=== PATIENT | male | born 1965 | race Caucasian/White ===

== ENCOUNTER 2020-01-06 08:13 | Outpatient (CLI) | payer BC, SELFPAY ==
--- NOTE | 2020-01-06 14:51 | WPDSIXMINUTE ---
Six Minute Walk Six Minute Walk: DATE OF SERVICE: 01/06/2020 REQUESTING: Dr Monaco REASON FOR TESTING: Non-productive cough; history of aortic dissection SIX MINUTE WALK This test was conducted per ATS guidelines, on room air. The initial saturation was 94%, pulse was 91. The fingertip probe lost a signal several times during the walk, the longest period without a signal being 44 seconds, and the total 2.5 minutes out of 8.5 minutes of recording time. The saturation varied between 94% to 97%. Pulse ranged from 62 to 95. Distance walked was 1100 feet / 335 meters. He did not stop to rest. He had significant dyspnea at the end of 6 minutes of walking, which improved at 2 minutes during recovery. IMPRESSION: No hypoxemia noted on the study. No indication for supplemental oxygen with exertion. Distance walked us adequate for his age. The lack of signal at various points while he was walking does not appear to have impacted reliability of results. Sometimes patient perfusion can impact ability for the oximeter to display the value. It is not clear why his signal was lost.
--- NOTE | 2020-01-06 15:06 | WPDPFTINT ---
PFT Interpretation PFT Interpretation: DOS: 01/06/2020 REQUESTING: Dr. Monaco REASON FOR TESTING: Shortness of breath, nonproductive cough. Nonsmoker. PULMONARY FUNCTION TESTS This test is reliable and reproducible. Spirometry: Moderate decrease in FEV1, 66% predicted, 2.34 L. FVC is mildly reduced 79% predicted. FEV1% is reduced consistent with airflow obstruction. The BGG09-61% is extremely low, 30%, with 37% increase with bronchodilator. Lung volumes: Total lung capacity is 112%, normal. Severe increase in residual volume 178% predicted consistent with air trapping. Increased airway resistance 253%. Diffusion: DLCO is 79%, mildly reduced. Flow volume loop: Mild scooping of the expiratory limb. IMPRESSION: Moderate obstructive ventilatory impairment, severe in the small airways with a significant response to bronchodilator in the small airways. Severe air trapping, increased airway resistance, mild decrease in diffusion. The spirometry and lung volumes suggest asthma. Clinical correlation is advised. Kristen Monaco MD
== END 2020-01-06 08:14 | disposition home or self-care (01) ==
PROVIDERS: PCP Family Medicine; Visit Provider Internal Medicine Critical Care Medicine
DX: R06.02 Shortness of breath (principal); R94.2 Abnormal results of pulmonary function studies
CPT/HCPCS: 94060; 94618; 94726; 94729

== ENCOUNTER 2020-03-12 19:24 | Emergency (ER) | payer BC, SELFPAY ==
--- NOTE | ~2020-03-12 | XR_ITS ---
EXAMINATION: XR foot RT min 3V DATE: 03/12/2020 21:32 INDICATION: Right foot pain TECHNIQUE: Dorsoplantar, lateral, and 2 oblique views of the right foot were obtained. COMPARISON: None. FINDINGS: There is no fracture, dislocation, or subluxation. Mild osteoarthritis is noted at the firs t metatarsophalangeal joint. The soft tissues are unremarkable. IMPRESSION: 1. No acute osseous abnormality. Reviewed, dictated and finalized at location A.
--- NOTE | ~2020-03-12 | XR_ITS ---
EXAMINATION: XR shoulder LT min 2V INDICATION: Left shoulder pain TECHNIQUE: Four views of the left shoulder are submitted. COMPARISON: 12/01/2018 FINDINGS: Normal alignment. No fracture. There is mild osteoarthritis at the glenohumeral and acromio clavicular joints. Changes of prior cardiac surgery are noted. Soft tissues are unremarkable. IMPRESSION: 1. No acute osseous abnormality. Reviewed, dictated and finalized at location A.
[2020-03-12 19:30] VITALS: BP 152/79; PULSE 85; RESP 18; TEMP 37.2; O2SAT 98
[2020-03-12 21:52] VITALS: BP 154/86; PULSE 94; RESP 18; TEMP 37.2; O2SAT 95
--- NOTE | 2020-03-12 22:23 | ED.FALL ---
HPI - Fall General Chief Complaint: Fall <Rach Adam PA-C - Last Filed: 03/12/20 22:29> Stated Complaint: left shoulder pain, right foot pain <JAI Alvarez Last Filed: 03/12/20 22:29> Time Seen by Provider: 03/12/20 22:06 <Rach Adam PA-C - Last Filed: 03/12/20 22:29> Source: patient <JAI Alvarez Last Filed: 03/12/20 22:29> Mode of arrival: ambulatory <JAI Alvarez Last Filed: 03/12/20 22:29> Limitations: no limitations <JAI Alvarez Last Filed: 03/12/20 22:29> History of Present Illness HPI Narrative: This is a 54-year-old male that presents the emergency department for left shoulder pain after an injury today. Reports he fell off the back of his trailer. Reports the fall was about 5 feet. Reports since he has had pain in the left shoulder and right foot. Worse with movement and relieved with rest. Denies hitting his head, loss of consciousness, other injuries, or numbness. <Rach Adam PA-C - Last Filed: 03/12/20 22:29> Related Data Home Medications: Home Medications Medication Instructions Recorded Confirmed calcium carb-vit [id number]-[id number] 1 tablet PO DAILY 08/19/19 02/09/20 333 mg-200 unit-133 mg-5 mg tablet calcium carbonate 600 mg calcium 600 mg PO DAILY 08/19/19 02/09/20 (1,500 mg) tablet chlorthalidone 25 mg tablet 25 mg PO DAILY 08/19/19 02/09/20 cyanocobalamin (vitamin B-12) 1,000 mcg PO DAILY 08/19/19 02/09/20 1,000 mcg capsule diltiazem HCl 240 mg 240 mg PO DAILY 08/19/19 02/09/20 capsule,extended release 24 hr, controlled labetalol 300 mg tablet 300 mg PO Q12H 08/19/19 02/09/20 lisinopril 40 mg tablet 40 mg PO DAILY 08/19/19 02/09/20 magnesium 250 mg tablet 500 mg PO DAILY tablet 08/19/19 02/09/20 melatonin 5 mg capsule mg PO 08/19/19 02/09/20 pyridoxine (vitamin B6) 200 mg 200 mg PO DAILY 08/19/19 02/09/20 tablet warfarin 5 mg tablet 5 mg PO DAILY 08/19/19 02/09/20 celecoxib 200 mg capsule 200 mg PO DAILY PRN 01/04/20 02/09/20 cholecalciferol (vitamin D3) 50 2,000 unit PO DAILY 01/04/20 02/09/20 mcg (2,000 unit) tablet <Rach Adam PA-C - Last Filed: 03/12/20 22:29> Allergies/Adverse Reactions: Allergies Allergy/AdvReac Type Severity Reaction Status Date / Time No Known Allergies Allergy Unverified 12/01/18 14:19 <Rach Adam PA-C - Last Filed: 03/12/20 22:29> Review of Systems Review of Systems: Narrative: CONSTITUTIONAL: Denies fever MUSCULOSKELETAL: Reports joint pain and myalgia. Denies back pain NEUROLOGIC: Denies numbness, or weakness. <Rach Adam PA-C - Last Filed: 03/12/20 22:29> All systems reviewed & are unremarkable except as noted in HPI and below <Rach Adam PA-C - Last Filed: 03/12/20 22:29> [facility] Past Medical History Medical History: Medical History (Updated 03/13/20 @ 00:00 by Nayely Asencio) Abdominal aortic aneurysm Anxiety and depression BMI 29.0-29.9,adult Chronic anticoagulation Chronic kidney disease, stage 2, mildly decreased GFR COPD (chronic obstructive pulmonary disease) COPD (chronic obstructive pulmonary disease) Descending aortic aneurysm Hyperlipidemia LDL goal <100 Hypertension Osteoarthritis involving multiple joints on both sides of body Rhinitis Tobacco dependence due to chewing tobacco Vasculopathy Vitamin B12 deficiency <Rach Adam PA-C - Last Filed: 03/12/20 22:29> Surgical History Surgical History: Surgical History History of thoracic aortic aneurysm repair <Rach Adam PA-C - Last Filed: 03/12/20 22:29> Social History Social History: Social History Alcohol intake: current <Rach Adam PA-C - Last Filed: 03/12/20 22:29> Exam Narrative: Exam Narrative: GENERAL: Well-appearing, well-nourished, and in no acute distress. HE
== END 2020-03-12 22:49 | disposition home or self-care (01) ==
PROVIDERS: Emergency Provider Emergency Medicine; PCP Family Medicine
DX: M25.512 Pain in left shoulder (principal); M79.671 Pain in right foot; Z79.01 Long term (current) use of anticoagulants; F41.9 Anxiety disorder, unspecified; F32.9 Major depressive disorder, single episode, unspecified; J44.9 Chronic obstructive pulmonary disease, unspecified; E78.5 Hyperlipidemia, unspecified; M19.90 Unspecified osteoarthritis, unspecified site; E53.8 Deficiency of other specified B group vitamins; I12.9 Hypertensive chronic kidney disease with stage 1 through stage 4 chronic kidney disease, or unspecified chronic kidney disease; N18.2 Chronic kidney disease, stage 2 (mild); F17.220 Nicotine dependence, chewing tobacco, uncomplicated; W17.89XA Other fall from one level to another, initial encounter
CPT/HCPCS: 73030; 73630; 99284

== ENCOUNTER 2020-04-12 13:03 | Inpatient (IN) | payer BC, SELFPAY ==
--- NOTE | ~2020-04-12 | XR_ITS ---
EXAMINATION: XR elbow RT min 3V EXAM DATE: 04/12/2020 13:45 INDICATION: Initial encounter following injury, with pain of the elbow. TECHNIQUE: Right elbow frontal, lateral with flexion, and oblique projections obtained and reviewed. There is no prior study for comparison. FINDINGS: Right elbow anterior humeral line intact. There are no acute fractures or dislocations astrid ntified. There is no subcutaneous gas. There is soft tissue swelling over the elbow posteriorly. T here are no radiopaque foreign bodies. IMPRESSION: 1. Right elbow exam without acute osseous findings. 2. Soft tissue swelling. Reviewed, dictated and finalized at location A.
[2020-04-12 13:07] VITALS: BP 120/70; PULSE 78; RESP 16; TEMP 36.1; O2SAT 97
--- NOTE | 2020-04-12 13:22 | ED.GENADULT ---
HPI - General Adult General Chief complaint: Extremity Injury, Upper Stated complaint: right elbow swelling, post fall 2 weeks ago Time Seen by Provider: 04/12/20 13:20 Source: patient Mode of arrival: ambulatory Limitations: no limitations History of Present Illness HPI narrative: Pt is a 54 yo male with a history of aortic dissection, anticoagulated on warfarn, who presents for evaluation of right elbow edema, redness. Pt has been on outpatient antibiotics for two days without improvement. Edema, redness is worsening. Patient reports increased pain with movement yesterday, actually improved today. No fever, chills, nausea or vomiting. Patient states the injury initially happened ten days ago when he was walking and tripped, landing on his right elbow, did obtain a very small scrape to the area and since that time has had about 3 days of worsening swelling, pain and redness. Patient with history of skin infection in the past. Patient has been compliant with his anticoagulation. Pt denying any chest pain, dyspnea, other lesions. He has seen his PCP and on Clindamycin. Dr. Tam's office referred him to the ED. Related Data Home Medications Medication Instructions Recorded Confirmed calcium carb-vit K4-dhyuejvre-ohso 1 tablet PO DAILY 08/19/19 04/10/20 333 mg-200 unit-133 mg-5 mg tablet calcium carbonate 600 mg calcium 600 mg PO DAILY 08/19/19 04/10/20 (1,500 mg) tablet chlorthalidone 25 mg tablet 25 mg PO DAILY 08/19/19 04/10/20 cyanocobalamin (vitamin B-12) 1,000 mcg PO DAILY 08/19/19 04/10/20 1,000 mcg capsule diltiazem HCl 240 mg 240 mg PO DAILY 08/19/19 04/10/20 capsule,extended release 24 hr, controlled labetalol 300 mg tablet 300 mg PO Q12H 08/19/19 04/10/20 lisinopril 40 mg tablet 40 mg PO DAILY 08/19/19 04/10/20 magnesium 250 mg tablet 500 mg PO DAILY tablet 08/19/19 04/10/20 melatonin 5 mg capsule mg PO 08/19/19 04/10/20 pyridoxine (vitamin B6) 200 mg 200 mg PO DAILY 08/19/19 04/10/20 tablet warfarin 5 mg tablet 5 mg PO DAILY 08/19/19 04/10/20 celecoxib 200 mg capsule 200 mg PO DAILY PRN 01/04/20 04/10/20 cholecalciferol (vitamin D3) 50 2,000 unit PO DAILY 01/04/20 04/10/20 mcg (2,000 unit) tablet Allergies Allergy/AdvReac Type Severity Reaction Status Date / Time No Known Allergies Allergy Verified 04/12/20 13:21 Review of Systems Review of Systems: Narrative: CONSTITUTIONAL: Denies fever CARDIOVASCULAR: Denies chest pain RESPIRATORY: Denies cough or dyspnea. GASTROINTESTINAL: Denies abdominal pain SKIN:Reports edema, erythema, pain of right elbow MUSCULOSKELETAL: Denies back pain NEUROLOGIC: Denies headache [facility], [facility] Past Medical History Medical History Abdominal aortic aneurysm Anxiety and depression Arthritis of left glenohumeral joint BMI 28.0-28.9,adult BMI 29.0-29.9,adult Cellulitis of right elbow Chronic anticoagulation Chronic kidney disease, stage 2, mildly decreased GFR COPD (chronic obstructive pulmonary disease) COPD (chronic obstructive pulmonary disease) Descending aortic aneurysm Hyperlipidemia LDL goal <100 Hypertension Olecranon bursitis of right elbow Osteoarthritis involving multiple joints on both sides of body Rhinitis Tobacco dependence due to chewing tobacco Vasculopathy Vitamin B12 deficiency Surgical History Surgical History History of heart valve replacement with mechanical valve History of thoracic aortic aneurysm repair 2010 Victor M Lorenzana Social History Social History Smoking packs per day: 1 Smoking cigarettes per day: 20.0 Years smoked: 29 Smoking pack-years: 29.00 Smoking status: Current every day smoker Tobacco type: cigarettes Second hand tobacco smoke exposure: Yes Alcohol intake: current Drinks per week: 7 Substance use: never Additional occupation/education
[2020-04-12 14:07] LABS: Basophils Percent Auto 0.2 % (0.2-1.2); Eosinophils Absolute Auto 0.4 K/mm3 (0-0.3); Eosinophils Percent Auto 3.3 % (0-4.4); Hematocrit 37.8 % (42.0-52.0); Hemoglobin 12.8 g/dL (14.0-18.0); Immature Granulocyte Absolute 0.04 K/mm3 (0.00-0.031); Immature Granulocyte Percent A 0.4 % (0-0.5); Lymphocytes Absolute Auto 1.25 K/mm3 (0.9-3.2); Mean Corpuscular HGB Conc 33.9 g/dl (32-36); Mean Corpuscular Hemoglobin 31.5 pg (26-34); Mean Corpuscular Volume 93.1 fl (80-100); Mean Platelet Volume 10.8 fl (7.4-10.4); Monocytes Absolute Auto 0.9 K/mm3 (0.1-0.6); Monocytes Percent Auto 7.6 % (2.6-8.5); Neutrophils Absolute Auto 8.8 K/mm3 (1.3-6.7); Neutrophils Percent Auto 77.5 % (45.5-73.1); Platelet Count Result 233 k/mm3 (150-375); Red Blood Count 4.06 M/mm3 (4.6-6.20); Red Cell Distribution Width 12.9 % (11.5-14.5); White Blood Count 11.3 K/mm3 (4.5-10.0)
[2020-04-12 14:16] LABS: INR 2.1; Prothrombin Time 23.2 Seconds (11.1-14.7)
[2020-04-12 14:17] LABS: Partial Thromboplastin Time 40.5 SECONDS (22.3-36.8)
[2020-04-12 14:36] LABS: Anion Gap 12.4 mmol/L (7-16); Blood Urea Nitrogen 32 mg/dL (9-20); Calcium 9.1 mg/dL (8.4-10.2); Carbon Dioxide 27 mmol/L (22-30); Chloride 102 mmol/L (98-107); Estimated CRCL calculation 63 ml/min; Estimated Glomerular Filt Rate > 60; Glucose 112 mg/dL (75-110); Potassium 3.4 mmol/L (3.4-5.0); Sodium 138 mmol/L (137-145)
[2020-04-12 14:40] LABS: Erythrocyte Sedimentation Rate 42 mm/hr (0-20)
[2020-04-12] MEDS: TETANUS,DIPHTHERIA,AC PERTUSSIS ADULT (0.5 ML) BOOSTRIX IM (14:49)
[2020-04-12 16:00] VITALS: BP 122/77; PULSE 68; RESP 16; TEMP 36.6; O2SAT 95
--- NOTE | 2020-04-12 16:22 | ADMGEN ---
This patient, Darrell Kirby, was admitted to Medical Room 342-01. Patient/family oriented to hospital policies and general routines including ID bracelet, bed and alarms, visiting hours, pain management, procedures, bathroom and other care routines, personal items, smoking policy, room service/diet, and visiting hours. Valuables list has been completed. Information on how to activate the Rapid Response Team has been discussed. Patient/Family are encouraged to report perceived risks to care and to ask questions if they do not understand what they are told or what they should do.
[2020-04-12 16:25] VITALS: BMI 28.9
[2020-04-12 16:26] VITALS: BP 144/71; PULSE 65; RESP 16; TEMP 36.6; O2SAT 97
[2020-04-12 16:59] VITALS: PULSE 64; RESP 16; O2SAT 97
[2020-04-12 19:58] VITALS: BP 112/70; PULSE 82; RESP 16; TEMP 37.3; O2SAT 99
--- NOTE | 2020-04-13 01:14 | PM.IMHP ---
H&P: HPI History of Present Illness Chief complaint: Cellulitis/right arm Narrative: This is a pleasant 54 year old male with known history of a mechanical aortic heart valve on chronic warfarin therapy who presented to the hospital with a complaint of right elbow pain, redness, and swelling for the past few days. He fell down some steps about 10 days ago when he landed on his right elbow. The patient has been on oral antibiotics for the past 2 days without any improvement and reports that his arm has only become more painful and swollen. He denies any fevers, chills, nausea, or vomiting tonight. He does complaint of ongoing left shoulder pain for over 1 month now since he hurt his shoulder at work. He has seen Dr. Tam once for this left shoulder but he states it has gotten worse and now he can barely lift his left arm. He was referred to see physical therapy although he cant lift anything with his left arm because of the pain. The patient denies any other rashes or areas of concern. Routine labs obtained in the ER demonstrated a subtherapeutic INR. No other complaints tonight. Review of Systems Review of Systems: All systems reviewed & are unremarkable except as noted in HPI and below PMFSH Past Medical History Medical History Abdominal aortic aneurysm Anxiety and depression Arthritis of left glenohumeral joint BMI 28.0-28.9,adult BMI 29.0-29.9,adult Cellulitis of right elbow Chronic anticoagulation Chronic kidney disease, stage 2, mildly decreased GFR COPD (chronic obstructive pulmonary disease) COPD (chronic obstructive pulmonary disease) Descending aortic aneurysm Hyperlipidemia LDL goal <100 Hypertension Olecranon bursitis of right elbow Osteoarthritis involving multiple joints on both sides of body Rhinitis Tobacco dependence due to chewing tobacco Vasculopathy Vitamin B12 deficiency Surgical History Surgical History History of heart valve replacement with mechanical valve History of thoracic aortic aneurysm repair 2010 Victor M Lorenzana Family History Family History Mother Diabetes mellitus Hypertension Mother No problems noted. 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 Gender identity (if verbalized by the patient): Male Spiritual care concerns: No Meds Home Medications and Allergies Home Medications Medication Instructions Recorded Confirmed Type calcium carb-vit J0-siovfoomt-ktyh 1 tablet PO DAILY 08/19/19 04/12/20 History 333 mg-200 unit-133 mg-5 mg tablet calcium carbonate 600 mg calcium 600 mg PO DAILY 08/19/19 04/12/20 History (1,500 mg) tablet chlorthalidone 25 mg tablet 25 mg PO DAILY 08/19/19 04/12/20 History cyanocobalamin (vitamin B-12) 1,000 mcg PO DAILY 08/19/19 04/12/20 History 1,000 mcg capsule diltiazem HCl 240 mg 240 mg PO DAILY 08/19/19 04/12/20 History capsule,extended release 24 hr, controlled labetalol 300 mg tablet 300 mg PO Q12H 08/19/19 04/12/20 History lisinopril 40 mg tablet 40 mg PO DAILY 08/19/19 04/12/20 History magnesium 250 mg tablet 500 mg PO DAILY tablet 08/19/19 04/12/20 History melatonin 5 mg capsule See Rx Instructions .ROUTE 08/19/19 04/12/20 History .COMPLEX PRN pyridoxine (vitamin B6) 200 mg 200 mg PO DAILY 08/19/19 04/12/20 History tablet warfarin 5 mg tablet 5 mg PO DAILY 08/19/19 04/12/20 History bupropion HCl 300 mg 24 hr
[2020-04-13] MEDS: ENOXAPARIN 100 MG/ML SYRINGE 97 MG SUB-Q ×2 (01:32→14:25)
[2020-04-13 05:24] VITALS: BP 106/58; PULSE 69; RESP 18; TEMP 36.7; O2SAT 97
[2020-04-13 05:37] LABS: Basophils Percent Auto 0.4 % (0.2-1.2); Eosinophils Absolute Auto 0.7 K/mm3 (0-0.3); Hemoglobin 12.4 g/dL (14.0-18.0); Immature Granulocyte Absolute 0.03 K/mm3 (0.00-0.031); Immature Granulocyte Percent A 0.3 % (0-0.5); Lymphocytes Absolute Auto 1.75 K/mm3 (0.9-3.2); Lymphocytes Percent Auto 19.1 % (18.3-44.2); Mean Corpuscular HGB Conc 33.5 g/dl (32-36); Mean Corpuscular Hemoglobin 31.4 pg (26-34); Mean Corpuscular Volume 93.7 fl (80-100); Mean Platelet Volume 10.3 fl (7.4-10.4); Monocytes Absolute Auto 0.9 K/mm3 (0.1-0.6); Monocytes Percent Auto 9.9 % (2.6-8.5); Neutrophils Absolute Auto 5.7 K/mm3 (1.3-6.7); Neutrophils Percent Auto 62.3 % (45.5-73.1); Platelet Count Result 231 k/mm3 (150-375); Red Blood Count 3.95 M/mm3 (4.6-6.20); Red Cell Distribution Width 12.6 % (11.5-14.5); White Blood Count 9.2 K/mm3 (4.5-10.0)
[2020-04-13 05:48] LABS: Prothrombin Time 22.1 Seconds (11.1-14.7)
[2020-04-13 06:39] LABS: Anion Gap 8.3 mmol/L (7-16); Blood Urea Nitrogen 24 mg/dL (9-20); Calcium 8.9 mg/dL (8.4-10.2); Carbon Dioxide 30 mmol/L (22-30); Chloride 102 mmol/L (98-107); Estimated CRCL calculation 88 ml/min; Estimated Glomerular Filt Rate > 60; Glucose 135 mg/dL (75-110); Potassium 3.3 mmol/L (3.4-5.0); Sodium 137 mmol/L (137-145)
[2020-04-13 11:19] LABS: Appearance Synovial Fluid Cloudy (Clear); Color Synovial Fluid Red (Colorless); Source Synovial Fluid Synovial fluid
--- NOTE | 2020-04-13 11:20 | PM.CNOR ---
Assessment and Plan Assessment and plan (1) Olecranon bursitis of right elbow: Code(s): M70.21 - Olecranon bursitis, right elbow Status: Acute Assessment and Plan: Three day history of right elbow pain, swelling and warmth. History, exam and radiographs reviewed with the patient. Radiographs of the right elbow from the ED reveal no evidence of fracture or acute abnormality, soft tissue swelling noted. Discussed condition, nature, etiology and course of natural history. Conservative and operative treatment options reviewed as well as the risks and benefits of each. Recommended aspiration of right elbow olecranon bursa under sterile conditions. The risks of aspiration were reviewed including but not limited to skin color changes, atrophy of the soft tissue, tendon or soft tissue rupture, joint degeneration, allergic reaction, continued pain or dysfunction. Specific risks of the procedure including deep infection or soft tissue rupture or recurrence of symptoms reviewed. No guarantees were offered. The patient understands the need for possible further treatment. 7 mL of serosanguineous fluid aspirated from the right elbow bursa. Fluid sent for stat Gram stain and culture, see orders. Continue IV antibiotics in the interim under the direction of the hospitalist team. We will await results of culture to determine further antibiotic treatment. Patient may benefit from infectious disease consult. Recommended ice and elevation of the right elbow in interim. Pain control. (2) Left shoulder pain: Qualifiers: Chronicity: chronic Qualified Code(s): M25.512 - Pain in left shoulder; G89.29 - Other chronic pain Code(s): M25.512 - Pain in left shoulder Status: Chronic Assessment and Plan: History and exam reviewed with the paitent. He was initially evaluated in the emergency room on March [address] Tam as an outpatient for left shoulder evaluation. He has pain with forward flexion and internal rotation. He has limitations with ROM due to weakness/pain. No joint swelling noted. No redness/warmth or signs of shoulder joint infection. He has pain when laying on the affected side and is unable to perform overhead reaching activities. He is currently under the care of Dr. Tam for his left shoulder and is undergoing a trial of conservative treatment with cortisone injection and formal physical therapy per patient/medical records. He has a follow-up appointment scheduled with Dr. Tam on April 25. Recommend patient follow up with provider as scheduled. Continue conservative treatment and formal PT as tolerated in the inteirm. History of Present Illness HPI Consult date: 04/13/20 Requesting physician: Rajan Manriquez MD Consult reason: other ( Right elbow swelling) Chief complaint: Cellulitis/right arm Narrative: 54-year-old male admitted for right elbow cellulitis. The patient reports a fall approximately 2 weeks ago in which he fell down the stairs and potentially landed on the right elbow. He had no problems aside from soreness of the right elbow until approximately 3 days ago. He reports increased redness, warmth, swelling and a mild fever for the past several days. His pain and swelling was unrelieved with oral antibiotics. He was in prompted to come to the emergency room for further evaluation. Radiographs in the ED reveal no evidence of fracture, dislocation or acute abnormality. Soft tissue swelling noted. The patient denies nausea, vomiting, diarrhea, night sweats or other signs of infection. He has been suffering from left shoulder pain for the past 2 months After an injury falling off the back of his trailer. He has been being seen by the ED s/p injury and subsequently by Dr. Tam x2. visits. He recently underwent a cortisone injection of the left shoulder by Dr. Tam on April 04, see outpatient MD notes. He reports 0% relief of pain status post injection. He is undergoing formal physical
[2020-04-13 11:37] LABS: Lymphocytes Synovial Fluid 3 %; Macrophages Synovial Fluid 1 %; Neutrophils Synovial Fluid 96 % (0-25)
[2020-04-13 11:38] LABS: Crystals Synovial Fluid None Seen (None Seen)
--- NOTE | 2020-04-13 11:56 | WPDPROCEDUR ---
Procedures Joint Aspiration/Injection Joint Asp./Inject. 1: Time out performed: Yes Side of body: right Joint aspirated: elbow Ultrasound guidance: No Skin prep: other ( alcohol and iodine) Local anesthesia used: lidocaine 1% Amount of anesthesia used (ml): 2 Needle size used: 22G Fluid obtained: bloody ( serosanguineous) Total fluid obtained (ml): 7 Medication injected, if any: other ( no medication injected) Patient tolerated procedure: well Complications: none Additional comments: fluid sent for stat Gram stain, cell count, culture, protein, glucose, crystals.
[2020-04-13] MEDS: PHARMACIST COMMUNICATION ORDER 1 EACH XX (12:19)
[2020-04-13 14:00] VITALS: BP 106/67; PULSE 78; RESP 16; TEMP 36.6; O2SAT 100
[2020-04-13] MEDS: WARFARIN (*PBKC) 5 MG TABLET PO (16:43)
[2020-04-13] MEDS: WARFARIN (*PBKC) 2 MG TABLET PO (16:43)
--- NOTE | 2020-04-13 16:46 | PM.IMPN ---
Progress Note: A&P Assessment and Plan (1) Cellulitis of right elbow: Code(s): L03.113 - Cellulitis of right upper limb Status: Acute Assessment and Plan: Continue Vancomycin IV. Pain control as needed. Ortho consult in am to evaluate for possible aspiration of right elbow. 04/13/20 16:46 patient 54-year-old male with history of mechanical aortic valve on Coumadin, apparently patient failed and injury right elbow over a week ago he was getting progressively worse with pain redness and swelling, patient was seen as outpatient and oral antibiotics were started, however symptoms were not for improving rather getting worse, patient complains of pain, denies any fever or chills, patient has full range of motion at elbow as well as at the shoulder. patient is seen orthopedic team and had I and D of the wound on the right elbow. patient states that his aortic mechanical valve for which he is taking Coumadin, his surgeon has recommended to maintain INR between 2 and 3, currently is INR is 2 will continue to monitor. (2) Subtherapeutic international normalized ratio (INR): Code(s): R79.1 - Abnormal coagulation profile Status: Acute Assessment and Plan: We will administer therapeutic Lovenox to bridge and continue warfarin. Monitor PT/INR. (3) Left shoulder pain: Qualifiers: Chronicity: chronic Qualified Code(s): M25.512 - Pain in left shoulder; G89.29 - Other chronic pain Code(s): M25.512 - Pain in left shoulder Status: Chronic Assessment and Plan: r/o Rotator Cuff Tear with severe limited range of motion and debilitating pain w/ manipulation. The patient will likely benefit from an outpatient MRI of his left shoulder and follow up with Ortho. Pain control for now. (4) COPD (chronic obstructive pulmonary disease): Qualifiers: COPD type: unspecified COPD Qualified Code(s): J44.9 - Chronic obstructive pulmonary disease, unspecified Code(s): J44.9 - Chronic obstructive pulmonary disease, unspecified Status: Chronic Assessment and Plan: Continue bronchodilators. (5) Hypertension: Qualifiers: Hypertension type: unspecified Qualified Code(s): I10 - Essential (primary) hypertension Code(s): I10 - Essential (primary) hypertension Status: Chronic Assessment and Plan: Continue home oral antihypertensives. (6) History of aortic valve replacement: Code(s): Z95.2 - Presence of prosthetic heart valve Status: Chronic Assessment and Plan: Continue anticoagulation Subjective Date/time seen: 04/13/20 16:46 patient 54-year-old male with history of mechanical aortic valve on Coumadin, apparently patient failed and injury right elbow over a week ago he was getting progressively worse with pain redness and swelling, patient was seen as outpatient and oral antibiotics were started, however symptoms were not for improving rather getting worse, patient complains of pain, denies any fever or chills, patient has full range of motion at elbow as well as at the shoulder. patient is seen orthopedic team and had I and D of the wound on the right elbow. patient states that his aortic mechanical valve for which he is taking Coumadin, his surgeon has recommended to maintain INR between 2 and 3, currently is INR is 2 will continue to monitor. Review of Systems Review of Systems: All systems reviewed & are unremarkable except as noted in HPI and below Exam Const: General: comfortable and no acute distress HENMT: General nose exam: Normal nares present Eyes: General: appearance normal, both eyes and all related structures Sclera: sclerae normal Neck: Neck: supple Resp: Effort & Inspection: normal respiratory effort Auscultation: clear to auscultation bilaterally Cardio: Rate: regular rate Rhythm: regular rhythm Other: with mechanical click GI: Auscultation: normal bowel sounds Skin: General
[2020-04-13 20:56] VITALS: BP 126/72; PULSE 76; RESP 18; TEMP 37; O2SAT 100
[2020-04-13] MEDS: LABETALOL HCL 100 MG TABLET 300 MG PO (20:56)
[2020-04-13] MEDS: lisinopriL 20 MG TABLET 40 MG PO (20:56)
[2020-04-13] MEDS: buPROPion HCL XL (24 HR) 150 MG TABCR 300 MG PO (20:57)
[2020-04-13] MEDS: hydrALAZINE HCL 25 MG TABLET PO (20:57)
[2020-04-13] MEDS: CALCIUM CARBONATE (OSCAL) 500 MG TABLET PO (20:58)
[2020-04-13] MEDS: CHLORTHALIDONE 25 MG TABLET PO (20:59)
[2020-04-13] MEDS: CHOLECALCIFEROL 1,000 UNIT TABLET 2000 UNITS PO (20:59)
[2020-04-14] MEDS: ENOXAPARIN 100 MG/ML SYRINGE 97 MG SUB-Q (01:55)
[2020-04-14 04:49] VITALS: BP 100/53; PULSE 68; RESP 16; TEMP 36.4; O2SAT 98
[2020-04-14 06:16] LABS: Hematocrit 36.9 % (42.0-52.0); Hemoglobin 12.3 g/dL (14.0-18.0); Mean Corpuscular HGB Conc 33.3 g/dl (32-36); Mean Corpuscular Hemoglobin 30.9 pg (26-34); Mean Corpuscular Volume 92.7 fl (80-100); Mean Platelet Volume 10.6 fl (7.4-10.4); Platelet Count Result 252 k/mm3 (150-375); Red Blood Count 3.98 M/mm3 (4.6-6.20); Red Cell Distribution Width 12.3 % (11.5-14.5); White Blood Count 7.9 K/mm3 (4.5-10.0)
[2020-04-14 06:25] LABS: INR 2.1; Prothrombin Time 22.7 Seconds (11.1-14.7)
[2020-04-14 06:27] LABS: Anion Gap 10.6 mmol/L (7-16); Blood Urea Nitrogen 19 mg/dL (9-20); Calcium 8.7 mg/dL (8.4-10.2); Carbon Dioxide 27 mmol/L (22-30); Chloride 102 mmol/L (98-107); Estimated CRCL calculation 80 ml/min; Estimated Glomerular Filt Rate > 60; Glucose 105 mg/dL (75-110); Potassium 3.6 mmol/L (3.4-5.0); Sodium 136 mmol/L (137-145)
[2020-04-14] MEDS: POTASSIUM CHLORIDE 20 MEQ PACKET (FOR LIQUID) 40 MEQ PO (08:33)
[2020-04-14] MEDS: PYRIDOXINE HCL 50 MG TABLET 200 MG PO (08:37)
[2020-04-14] MEDS: hydrALAZINE HCL 25 MG TABLET PO ×2 (08:37→20:32)
[2020-04-14] MEDS: CITALOPRAM HYDROBROMIDE 20 MG TABLET PO (08:37)
--- NOTE | 2020-04-14 10:50 | PM.PNORT ---
Progress Note: A&P Assessment and Plan (1) Olecranon bursitis of right elbow: Code(s): M70.21 - Olecranon bursitis, right elbow Status: Acute Assessment and Plan: Aspiration right elbow olecranon bursa yesterday. G stain negative for organisms. Cultures pending. White count normalized today. Continue intravenous antibiotics. If preliminary negative cultures may consider switch to oral medication for discharge home. Subjective Subjective Date/Time Seen: 04/14/20 10:50 Patient awake and alert. States right elbow feels better. No new complaints. Exam Const: General: comfortable and no acute distress HENMT: Mouth: Yes moist mucous membranes Eyes: General: appearance normal, both eyes and all related structures Pupils: Equal, round and reactive pupils present EOM: EOMs intact bilaterally Neck: Neck: supple and no JVD Resp: Effort & Inspection: normal respiratory effort Cardio: Rate: regular rate Rhythm: regular rhythm GI: Inspection: non-distended Skin: General skin exam: erythema ( right elbow) Wounds: no wounds ( small abrasion of the right elbow) Other: redness, warmth and swelling surrounding the right olecranon extending to the dorsal forearm and posterior aspect of the right arm Improved today. Tenderness directly over the olecranon Improved. Lateral epicondyle and medial epicondyle without pain. Neuro: Cognition (Neuro): normal cognition Speech: normal speech Motor exam (neuro): 5/5 motor strength present throughout and Normal motor muscle tone present throughout Sensory Exam: normal sensation Extrem: Right upper extremity: normal capillary refill, elbow/forearm, wrist and Extremity exam: right hand; no cyanosis Left upper extremity: shoulder/upper arm, elbow/forearm and wrist Right lower extremity: normal to inspection Left lower extremity: normal to inspection Other: Left Anterior apprehension negative Left relocation negative Left Anterior translation negative Left Posterior translation negative Left Inferior translation negative Left negative Brianna's Left negative SLAP Left negative speed's test Left negative yergason's Left positive belly press Left positive jain Left positive cross body Left unable to perform lift off test Left negative Neer's Psych: Mental Status: mental status grossly normal Affect: normal affect Objective Data Vital Signs Vital Signs: Vital Signs - 24 hr 04/13/20 14:00 04/13/20 20:56 04/14/20 04:49 Temperature 97.8 F 98.6 F 97.6 F Pulse Rate 78 76 68 Respiratory Rate 16 18 16 Blood Pressure 106/67 126/72 100/53 L Pulse Oximetry 100 100 98 Intake/Output Intake/Output: Intake & Output 04/11/20 04/12/20 04/13/20 04/14/20 23:59 23:59 23:59 23:59 Intake Total 690 2732 1300 Output Total 7960 5089 Balance 690 187 -674 Meds/Results Medications: Active Medications Generic Name Dose Route Start Last Admin Trade Name Freq PRN Reason Stop Dose Admin Acetaminophen 650 mg 04/12/20 14:33 Tylenol Tablet PO Q4H PRN Mild Pain (1-3) or Fever Albuterol 1 puff 04/13/20 01:07 Proventil Hfa INHALATION Q4H PRN shortness of breath or wheezing Bupropion HCl 300 mg 04/13/20 21:00 04/13/20 20:57 Wellbutrin Xl (24 Hr) PO 300 mg HS JOSE Administration Calcium Carbonate 500 mg 04/13/20 21:00 04/13/20 20:58 Oscal 500 Mg PO 500 mg HS JOSE Administration Chlorthalidone 25 mg 04/13/20 21:00 04/13/20 20:59 Hygroton PO 25 mg HS JOSE Administration Citalopram Hydrobromide 20 mg 04/13/20 09:00 04/14/20 08:37 Celexa PO 20 mg DAILY JOSE Administration Cyanocobalamin 1,000 mcg 04/14/20 09:00 Vitamin B-12 Tab PO QAM JOSE Diltiazem HCl 240 mg 04/13/20 21:00 04/13/20 21:00 Cardizem Cd PO 240 mg HS JOSE Administration Enoxaparin Sodium 97 mg 04/13/20 01:00 04/14/20 01:55 Lovenox SUB-Q 97 mg Q12H JOSE Administ
--- NOTE | 2020-04-14 11:25 | PM.IMPN ---
Progress Note: A&P Assessment and Plan (1) Cellulitis of right elbow: Code(s): L03.113 - Cellulitis of right upper limb Status: Acute Assessment and Plan: Continue Vancomycin IV. Pain control as needed. Ortho consult in am to evaluate for possible aspiration of right elbow. 04/14/20 11:25 patient 54-year-old male with history of mechanical aortic valve on Coumadin, apparently patient failed and injury right elbow over a week ago he was getting progressively worse with pain redness and swelling, patient was seen as outpatient and oral antibiotics were started, however symptoms were not for improving rather getting worse, patient complains of pain, denies any fever or chills, patient has full range of motion at elbow as well as at the shoulder. on 04/13 patient was seen orthopedic team and had I and D of the wound on the right elbow and culture was collected from the wound. Today so far no growth patient seen by surgery team today, will follow-up on the culture is negative will discharge the patient home on oral antibiotic, patient states that his aortic mechanical valve for which he is taking Coumadin, his surgeon has recommended to maintain INR between 2 and 3, currently is INR is 2.1 will continue to monitor. (2) Subtherapeutic international normalized ratio (INR): Code(s): R79.1 - Abnormal coagulation profile Status: Acute Assessment and Plan: We will administer therapeutic Lovenox to bridge and continue warfarin. Monitor PT/INR. (3) Left shoulder pain: Qualifiers: Chronicity: chronic Qualified Code(s): M25.512 - Pain in left shoulder; G89.29 - Other chronic pain Code(s): M25.512 - Pain in left shoulder Status: Chronic Assessment and Plan: r/o Rotator Cuff Tear with severe limited range of motion and debilitating pain w/ manipulation. The patient will likely benefit from an outpatient MRI of his left shoulder and follow up with Ortho. Pain control for now. (4) COPD (chronic obstructive pulmonary disease): Qualifiers: COPD type: unspecified COPD Qualified Code(s): J44.9 - Chronic obstructive pulmonary disease, unspecified Code(s): J44.9 - Chronic obstructive pulmonary disease, unspecified Status: Chronic Assessment and Plan: Continue bronchodilators. (5) Hypertension: Qualifiers: Hypertension type: unspecified Qualified Code(s): I10 - Essential (primary) hypertension Code(s): I10 - Essential (primary) hypertension Status: Chronic Assessment and Plan: Continue home oral antihypertensives. (6) History of aortic valve replacement: Code(s): Z95.2 - Presence of prosthetic heart valve Status: Chronic Assessment and Plan: Continue anticoagulation Subjective Date/time seen: 04/14/20 11:25 patient 54-year-old male with history of mechanical aortic valve on Coumadin, apparently patient failed and injury right elbow over a week ago he was getting progressively worse with pain redness and swelling, patient was seen as outpatient and oral antibiotics were started, however symptoms were not for improving rather getting worse, patient complains of pain, denies any fever or chills, patient has full range of motion at elbow as well as at the shoulder. on 04/13 patient was seen orthopedic team and had I and D of the wound on the right elbow and culture was collected from the wound. Today so far no growth patient seen by surgery team today, will follow-up on the culture is negative will discharge the patient home on oral antibiotic, patient states that his aortic mechanical valve for which he is taking Coumadin, his surgeon has recommended to maintain INR between 2 and 3, currently is INR is 2.1 will continue to monitor. Objective Data Vital Signs Vital Signs: Vital Signs - 24 hr 04/13/20 14:00 04/13/20 20:56 04/14/20 04:49 Temperature 97.8 F 98.6 F 97.6 F Pulse Rate 78 76 68 Respirator
[2020-04-14] MEDS: CYANOCOBALAMIN 1,000 MCG TABLET 1000 MCG PO (12:02)
[2020-04-14 14:30] VITALS: BP 111/18; PULSE 66; RESP 18; TEMP 36.9; O2SAT 97
[2020-04-14] MEDS: WARFARIN (*PBKC) 5 MG TABLET PO (17:26)
[2020-04-14] MEDS: WARFARIN (*PBKC) 2 MG TABLET PO (17:27)
[2020-04-14 17:56] LABS: Glucose Synovial Fluid 27 mg/dL
[2020-04-14 19:54] VITALS: BP 134/83; PULSE 72; RESP 18; TEMP 37.1; O2SAT 98
[2020-04-14 19:56] LABS: Vancomycin Trough 12.5 ug/mL (10.0-20.0)
[2020-04-14] MEDS: lisinopriL 20 MG TABLET 40 MG PO (20:31)
[2020-04-14 20:32] VITALS: PULSE 82
[2020-04-14] MEDS: LABETALOL HCL 100 MG TABLET 300 MG PO (20:32)
[2020-04-14] MEDS: CHOLECALCIFEROL 1,000 UNIT TABLET 2000 UNITS PO (20:32)
[2020-04-14] MEDS: CHLORTHALIDONE 25 MG TABLET PO (20:33)
[2020-04-14] MEDS: CALCIUM CARBONATE (OSCAL) 500 MG TABLET PO (20:33)
[2020-04-14] MEDS: buPROPion HCL XL (24 HR) 150 MG TABCR 300 MG PO (20:33)
[2020-04-15 05:25] LABS: Hematocrit 36.6 % (42.0-52.0); Hemoglobin 12.4 g/dL (14.0-18.0); Mean Corpuscular HGB Conc 33.9 g/dl (32-36); Mean Corpuscular Hemoglobin 31.6 pg (26-34); Mean Corpuscular Volume 93.1 fl (80-100); Mean Platelet Volume 10.4 fl (7.4-10.4); Platelet Count Result 269 k/mm3 (150-375); Red Blood Count 3.93 M/mm3 (4.6-6.20); Red Cell Distribution Width 12.3 % (11.5-14.5); White Blood Count 8.1 K/mm3 (4.5-10.0)
[2020-04-15 05:35] LABS: INR 1.7; Prothrombin Time 19.6 Seconds (11.1-14.7)
[2020-04-15 05:42] LABS: Anion Gap 9.8 mmol/L (7-16); Blood Urea Nitrogen 20 mg/dL (9-20); Calcium 9.2 mg/dL (8.4-10.2); Carbon Dioxide 30 mmol/L (22-30); Chloride 100 mmol/L (98-107); Estimated CRCL calculation 73 ml/min; Estimated Glomerular Filt Rate > 60; Glucose 101 mg/dL (75-110); Potassium 3.8 mmol/L (3.4-5.0); Sodium 136 mmol/L (137-145)
[2020-04-15 06:00] VITALS: BP 104/58; PULSE 62; RESP 18; TEMP 36.7; O2SAT 98
--- NOTE | 2020-04-15 07:24 | PCRCNOTE ---
pt administered spiriva on his own
--- NOTE | 2020-04-15 07:24 | PM.PNORT ---
Progress Note: A&P Assessment and Plan (1) Olecranon bursitis of right elbow: Code(s): M70.21 - Olecranon bursitis, right elbow Status: Acute Assessment and Plan: Aspiration right elbow olecranon bursa. G stain negative for organisms. Cultures still pending. White count normalized today. Switch to oral medication for discharge home today after am iv dose. Subjective Subjective Date/Time Seen: 04/15/20 07:24 Awake and alert. Feels better this morning. Exam Const: General: comfortable and no acute distress HENMT: Mouth: Yes moist mucous membranes Eyes: General: appearance normal, both eyes and all related structures Pupils: Equal, round and reactive pupils present EOM: EOMs intact bilaterally Neck: Neck: supple and no JVD Resp: Effort & Inspection: normal respiratory effort Cardio: Rate: regular rate Rhythm: regular rhythm GI: Inspection: non-distended Skin: General skin exam: erythema ( right elbow) Wounds: no wounds ( small abrasion of the right elbow) Other: redness, warmth and swelling surrounding the right olecranon extending to the dorsal forearm and posterior aspect of the right arm Improved today. Tenderness directly over the olecranon Improved. Lateral epicondyle and medial epicondyle without pain. Neuro: Cognition (Neuro): normal cognition Speech: normal speech Motor exam (neuro): 5/5 motor strength present throughout and Normal motor muscle tone present throughout Sensory Exam: normal sensation Extrem: Right upper extremity: normal capillary refill, elbow/forearm, wrist and Extremity exam: right hand; no cyanosis Left upper extremity: shoulder/upper arm, elbow/forearm and wrist Right lower extremity: normal to inspection Left lower extremity: normal to inspection Other: Left Anterior apprehension negative Left relocation negative Left Anterior translation negative Left Posterior translation negative Left Inferior translation negative Left negative Brianna's Left negative SLAP Left negative speed's test Left negative yergason's Left positive belly press Left positive jain Left positive cross body Left unable to perform lift off test Left negative Neer's Psych: Mental Status: mental status grossly normal Affect: normal affect Objective Data Vital Signs Vital Signs: Vital Signs - 24 hr 04/14/20 14:30 04/14/20 19:54 04/14/20 20:32 Temperature 98.4 F 98.7 F Pulse Rate 66 72 82 Respiratory Rate 18 18 Blood Pressure 111/18 L 134/83 Pulse Oximetry 97 98 04/15/20 06:00 Temperature 98.1 F Pulse Rate 62 Respiratory Rate 18 Blood Pressure 104/58 L Pulse Oximetry 98 Intake/Output Intake/Output: Intake & Output 04/12/20 04/13/20 04/14/20 04/15/20 23:59 23:59 23:59 23:59 Intake Total 690 2732 2680 200 Output Total 6158 2725 1800 Balance 690 187 45 -1600 Meds/Results Medications: Active Medications Generic Name Dose Route Start Last Admin Trade Name Freq PRN Reason Stop Dose Admin Acetaminophen 650 mg 04/12/20 14:33 Tylenol Tablet PO Q4H PRN Mild Pain (1-3) or Fever Albuterol 1 puff 04/13/20 01:07 Proventil Hfa INHALATION Q4H PRN shortness of breath or wheezing Bupropion HCl 300 mg 04/13/20 21:00 04/14/20 20:33 Wellbutrin Xl (24 Hr) PO 300 mg HS JOSE Administration Calcium Carbonate 500 mg 04/13/20 21:00 04/14/20 20:33 Oscal 500 Mg PO 500 mg HS JOSE Administration Chlorthalidone 25 mg 04/13/20 21:00 04/14/20 20:33 Hygroton PO 25 mg HS JOSE Administration Citalopram Hydrobromide 20 mg 04/13/20 09:00 04/14/20 08:37 Celexa PO 20 mg DAILY JOSE Administration Cyanocobalamin 1,000 mcg 04/14/20 09:00 04/14/20 12:02 Vitamin B-12 Tab PO 1,000 mcg QAM JOSE Administration Diltiazem HCl 240 mg 04/13/20 21:00 04/14/20 20:32 Cardizem Cd PO 240 mg HS JOSE Administration Hydralazine HCl 25 mg 04/13/20 21:00 04/14/20 20:3
[2020-04-15] MEDS: CITALOPRAM HYDROBROMIDE 20 MG TABLET PO (08:16)
[2020-04-15] MEDS: CYANOCOBALAMIN 1,000 MCG TABLET 1000 MCG PO (08:16)
[2020-04-15] MEDS: PYRIDOXINE HCL 50 MG TABLET 200 MG PO (08:17)
[2020-04-15] MEDS: hydrALAZINE HCL 25 MG TABLET PO (08:17)
--- NOTE | 2020-04-15 10:36 | PM.DS ---
DS: Admitting Diagnosis Admitting Diagnosis Admitting Diagnosis: Cellulitis of right upper limb DS: Discharge Diagnosis Discharge Diagnosis (1) Cellulitis of right elbow: Code(s): L03.113 - Cellulitis of right upper limb Status: Acute Assessment and Plan: Continue Vancomycin IV. Pain control as needed. Ortho consult in am to evaluate for possible aspiration of right elbow. 04/14/20 11:25 patient 54-year-old male with history of mechanical aortic valve on Coumadin, apparently patient failed and injury right elbow over a week ago he was getting progressively worse with pain redness and swelling, patient was seen as outpatient and oral antibiotics were started, however symptoms were not for improving rather getting worse, patient complains of pain, denies any fever or chills, patient has full range of motion at elbow as well as at the shoulder. on 04/13 patient was seen orthopedic team and had I and D of the wound on the right elbow and culture was collected from the wound. Today so far no growth patient seen by surgery team today, will follow-up on the culture is negative will discharge the patient home on oral antibiotic, patient states that his aortic mechanical valve for which he is taking Coumadin, his surgeon has recommended to maintain INR between 2 and 3, currently is INR is 2.1 will continue to monitor. (2) Subtherapeutic international normalized ratio (INR): Code(s): R79.1 - Abnormal coagulation profile Status: Acute Assessment and Plan: We will administer therapeutic Lovenox to bridge and continue warfarin. Monitor PT/INR. (3) Left shoulder pain: Qualifiers: Chronicity: chronic Qualified Code(s): M25.512 - Pain in left shoulder; G89.29 - Other chronic pain Code(s): M25.512 - Pain in left shoulder Status: Chronic Assessment and Plan: r/o Rotator Cuff Tear with severe limited range of motion and debilitating pain w/ manipulation. The patient will likely benefit from an outpatient MRI of his left shoulder and follow up with Ortho. Pain control for now. (4) COPD (chronic obstructive pulmonary disease): Qualifiers: COPD type: unspecified COPD Qualified Code(s): J44.9 - Chronic obstructive pulmonary disease, unspecified Code(s): J44.9 - Chronic obstructive pulmonary disease, unspecified Status: Chronic Assessment and Plan: Continue bronchodilators. (5) Hypertension: Qualifiers: Hypertension type: unspecified Qualified Code(s): I10 - Essential (primary) hypertension Code(s): I10 - Essential (primary) hypertension Status: Chronic Assessment and Plan: Continue home oral antihypertensives. (6) History of aortic valve replacement: Code(s): Z95.2 - Presence of prosthetic heart valve Status: Chronic Assessment and Plan: Continue anticoagulation DS: Summary Hospital Course Reason for hospitalization: Narrative: This is a pleasant 54 year old male with known history of a mechanical aortic heart valve on chronic warfarin therapy who presented to the hospital with a complaint of right elbow pain, redness, and swelling for the past few days. He fell down some steps about 10 days ago when he landed on his right elbow. The patient has been on oral antibiotics for the past 2 days without any improvement and reports that his arm has only become more painful and swollen. He denies any fevers, chills, nausea, or vomiting tonight. He does complaint of ongoing left shoulder pain for over 1 month now since he hurt his shoulder at work. He has seen Dr. Tam once for this left shoulder but he states it has gotten worse and now he can barely lift his left arm. He was referred to see physical therapy although he cant lift anything with his left arm because of the pain. The patient denies any other rashes or areas of concern. Routine labs obtained in the ER demonstrated a subtherapeutic I
== END 2020-04-15 10:55 | disposition home or self-care (01) | DRG 558 ==
LOC: ANHED 14:28 → ANH3MED 15:41
PROVIDERS: Family Medicine; Nurse Practitioner Family; Admitting Provider Family Medicine; Emergency Provider Emergency Medicine; PCP Physician Assistant; Visit Provider Family Medicine
DX: M70.21 Olecranon bursitis, right elbow (principal); L03.113 Cellulitis of right upper limb; J44.9 Chronic obstructive pulmonary disease, unspecified; I12.9 Hypertensive chronic kidney disease with stage 1 through stage 4 chronic kidney disease, or unspecified chronic kidney disease; N18.2 Chronic kidney disease, stage 2 (mild); F17.210 Nicotine dependence, cigarettes, uncomplicated; M25.512 Pain in left shoulder; G89.29 Other chronic pain; R79.1 Abnormal coagulation profile; Z79.01 Long term (current) use of anticoagulants; Z91.81 History of falling; Z95.2 Presence of prosthetic heart valve
CPT/HCPCS: 36415; 73080; 80048; 80202; 82945; 84157; 85025; 85027; 85610; 85652; 85730; 86140; 87070; 87075; 87205; 89051; 89060; 90471; 90715; 96365; 99285; A9270; G0378; J1650; J3370

== ENCOUNTER 2020-04-24 09:00 | Outpatient (RCR) | payer OTHER, BC, SELFPAY ==
[2020-03-29 08:35] VITALS: BP_SYST 118
--- NOTE | 2020-03-29 13:25 | PTOPEVAL ---
INITIAL PHYSICAL THERAPY EVALUATION and PLAN OF CARE Thank you for referring Darrell Kirby to [facility]. He will be seen in PT 2x/wk x 4 wks. Please review, sign, date and return this plan of care LIBIA. Of note with special testing - there seems to be + RTC and labral testing findings for L shoulder and mild + RTC findings for R shoulder. I agree with and certify that the following plan of care is medically necessary. Referring Physician Date Admitting Provider: Attending Provider: Christoph Tam MD Referring Provider: *PT Outpatient Evaluation Start: 03/29/20 08:46 Freq: Status: Active Protocol: Document 03/29/20 08:35 ZAIRA (Rec: 03/29/20 10:48 [email or web address] [email or web address]) Therapy Assessment Status Assessment Status Assessment Status Evaluation Outpatient Past Medical History Past Medical History Source of Past Medical History Patient Neurological History Hx Neurological Disorders No Significant History Cardiovascular History Hx Hypertension Yes Hx Other Cardiac Disorders Yes Respiratory History Hx Chronic Obstructive Pulmonary Disease Yes (COPD) Gastrointestinal History Hx Gastrointestinal Disorders No Significant History Genitourinary History Hx Genitourinary Disorders No Significant History Musculoskeletal History Hx Arthritis Yes Endocrine History Hx Endocrine Disorders No Significant History Other History Hx Other Surgeries Yes: L vocal cord surgery Evaluation Information Problem Diagnosis L shoulder pain, L shoulder OA Onset 03/09/2020 Cause accident at work Subjective Information Abimael reports that he was on Query Text:As Reported By Patient/ trailer bed of [employer] bars were being unloaded by a bush. 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 Did eventually fall 4 1/2 - 5 ft onto back. Immediate pain with L shoulder. 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
--- NOTE | 2020-04-12 08:49 | PCPTNOTE ---
Patient called & cancelled scheduled appointment this date due to electrical issues at his house.
--- NOTE | 2020-04-24 11:47 | PTOPEVAL ---
Addendum entered by MIKA MENCHACA 04/26/20 08:09: Phone called received from Abimael after MD appointment. Last PT appointment is to be cancelled. He will be receiving a MRI of his L shoulder. Re-evaluation note will serve as discharge note. Original Note: PHYSICAL THERAPY RE-EVALUATION Thank you for referring Darrell Kirby to [facility]. He has received 7 visits with 8th one scheduled 04/26/2020. He has made ROM gains, scapular strengthening but not RTC or g-h jt strengthening, still increase in pain levels with decreased ADL, IADL abilitities, and still positive RTC, biceps tendon, and labral tests. He has follow up MD visit 04/25/2020. Please advise if further PT is desired following his 8th visit. If he is not to continue with PT - this re-eval with serve as his discharge summary. I agree with and certify that the following plan of care is medically necessary. Referring Physician Date Admitting Provider: Attending Provider: Christoph Tam MD Referring Provider: *PT Outpatient Evaluation Start: 03/29/20 08:46 Freq: Status: Active Protocol: Document 04/24/20 09:10 ZAIRA (Rec: 04/24/20 11:47 [email or web address]) Therapy Assessment Status Assessment Status Assessment Status Re-evaluation Evaluation Information Problem Subjective Information Abimael continues to report Query Text:As Reported By Patient/ increased pain with L shoulder Family . Kinesiotape does help a little - with leucotape over kinesiotape increased support was felt. Still limited with ability to use L UE with ADLs, IADLs reported. Pain Assessment Timing of Pain Assessment Timing of Pain Assessment Re-assessment Pain Scale Pain Scale Used Numeric (1 - 10) Self Report Pain Assessment Left Shoulder(s) Reported Pain Level 4 Pain Description Aching,Stabbing Pain Frequency Acute Other Pain Description pulling Lowest Pain Intensity 4 Greatest Pain Intensity 9 Pain Aggravating Factors Exercise/Activity Other Pain Aggravating Factors lying down Pain Behaviors Guarding Pain Score Pain Score 4: Self Report Upper Extremity Range of Motion Scapular/ Shoulder Range of Motion Left Shoulder Flexion - Active 168 Shoulder Extension - Active 55 Shoulder Abduction - Active 164 Shoulder Medial Rotation - Active 80 Shoulder Medial Rotation - Passive 90 Shoulder Medial Rotation - Active L5 Query Text:Reach Behind the Back Shoulder Lateral Rotation - Active 73 Shoulder Lateral Rotation - Passive 90 Shoulder Lateral Rotation - Active C7 Query Text:Reach Behind the Head Scapular/Shoulder Range of Motion Pain,Soft Tissue Restriction Limitations Scapular/Shoulder Range of Motion
== END 2020-04-30 14:30 | disposition home or self-care (01) ==
LOC: ANHPT 09:00
PROVIDERS: PCP Family Medicine; Visit Provider Orthopaedic Surgery
DX: M19.012 Primary osteoarthritis, left shoulder (principal)
CPT/HCPCS: 97110; 97140; 97161

== ENCOUNTER 2020-05-05 12:40 | Outpatient (CLI) | payer OTHER, BC, SELFPAY ==
--- NOTE | ~2020-05-05 | MR_ITS ---
EXAMINATION: MR shoulder LT wo con DATE: 05/05/2020 13:46 INDICATION: TECHNIQUE: Magnetic resonance imaging (MRI) of the affected shoulder was performed without intravenou s contrast. Sequences included axial PD-weighted FS FSE, coronal oblique PD-weighted FS FSE, coronal oblique T2-weighted FS FSE, sagittal PD-weighted FS FSE, and sagittal T1-weighted SE. COMPARISON: None. FINDINGS: Coracoacromial arch: The acromion undersurface is curved in morphology (type II) with anterior downsloping and a small sub acromial spur. The coracoacromial ligament appears frayed with no thickening. Mild acromioclavicular osteoarthritis. There is hypertrophic change along the acromion extending along the dorsal capsule of the joint space which may represent sequela of chronic acromioclavicular joint separation. The corac oclavicular ligament appears normal. Rotator cuff: Supraspinatus and mild infraspinatus tendinopathy. There is attenuation of the supraspinatus tendon w ith small region of fluid signal intensity extending approximately 1 cm AP along the central aspect o f the superior facet footplate consistent with partial-thickness intrasubstance tear. The bursal and articular surface of the tendon appear to remain intact. There is however be secondary moderate fatty atrophy of the supraspinatus muscle belly. The teres minor tendon is normal. Severe subscapularis te ndinopathy. There is a tear involving the cephalad two thirds of the lesser tuberosity footplate of t he subscapularis tendon the central portion which is retracted approximately 3 cm medially. The more cephalad portion of the tendon appears to remain tethered laterally to the transverse humeral ligamen t and biceps shannan anchor. Mild tendinopathy without discrete tear of the caudal third of the tendon . The subscapularis tendon tear is likely relatively recent as there is mild edema but no significant fatty atrophy of the subscapularis musculature. Biceps tendon, glenoid labrum and glenohumeral cartilage: Long head of the biceps tendon is normal but partially subluxed across the medial rim of the cephalad aspect of the intertubercular groove. There is diffuse tearing of the glenoid labrum most severe inf eriorly where there is subarticular cystic change, small osteophytes and minimal if any residual labr al tissue. Extensive partial thickness cartilage loss at the glenoid which approaches full thickness along the anterior and inferior rim. Small shallow chondral ulceration slightly medial to the apex of the humeral head and partial-thickness cartilage loss with smooth chondral surface along the medial aspect of the humeral head. Fluid: Small glenohumeral joint effusion with proportional extension into the long head biceps tendon sheath . There are a couple 4-5 mm loose osteochondral bodies within the collection of fluid accumulating wi thin the subscapularis tear defect. Amount of fluid and mild synovitis in the subacromial/subdeltoid bursa consistent with moderate bursitis. Bones: Bone alignment is normal. No fracture or pathologic marrow replacing process. IMPRESSION: 1. Moderate glenohumeral osteoarthritis with diffuse labral tear/degeneration. 2. Moderate supraspinatus and mild infraspinatus tendinopathy with likely chronic partial-thickness i ntrasubstance tear of the supraspinatus tendon with moderate secondary fatty atrophy of the subscapul guzman muscle belly. 3. Severe subscapularis tendinopathy with large tear involving the cephalad two thirds of the lesser tuberosity footplate which is likely relatively recent given the absence of significant fatty atrophy . 4. Moderate subacromial/subdeltoid bursitis. 5. Mild acromioclavicular osteoarthritis with prominent heterotopic ossification along the dorsal jose angel nt capsule which may represent sequela of chronic acromioclavicular joint separation.
== END 2020-05-05 12:41 | disposition home or self-care (01) ==
PROVIDERS: PCP Physician Assistant; Visit Provider Orthopaedic Surgery
DX: M19.012 Primary osteoarthritis, left shoulder (principal); M75.52 Bursitis of left shoulder
CPT/HCPCS: 73221

== ENCOUNTER 2020-08-29 14:46 | Emergency (ER) | payer BC, SELFPAY ==
--- NOTE | ~2020-08-29 | XR_ITS ---
XR foot RT min 3V DATE: 08/29/2020 15:01 INDICATION: Kicked bed interest are 2 days ago. Right first and fourth toe pain TECHNIQUE: 4 views COMPARISON: None FINDINGS: There is mild osteoarthritis at the tibiotalar joint and first metatarsophalangeal joint. No fracture or dislocation, periosteal reaction or bone destruction is detected. IMPRESSION: No fracture or dislocation is detected Osteophyte is at tibiotalar and first metatarsophalangeal joints Reviewed, dictated and finalized at location [facility]
[2020-08-29 14:53] VITALS: BP 116/80; PULSE 81; RESP 16; TEMP 36.6; O2SAT 98
[2020-08-29 14:55] VITALS: BP 116/80; PULSE 81; RESP 16; TEMP 36.6; O2SAT 98
--- NOTE | 2020-08-29 15:12 | ED.LOWEXIN ---
HPI - Extremity Injury (Lower) General Chief Complaint: Extremity Injury, Lower Stated Complaint: INJURED TOE Time Seen by Provider: 08/29/20 14:47 Source: patient Mode of arrival: ambulatory Limitations: no limitations History of Present Illness HPI Narrative: 55-year-old male presents to [facility] with complaints of pain to his right first and right fourth toes for the past 2 days. Patient reports that he accidentally stubbed his toes on a bed frame and dresser 2 days ago prior to the pain starting. Patient has been taking leftover Percocet with minimal relief. Patient denies bruising, numbness or tingling. Onset (ago): day(s) (2) Injury: Right: foot (right 1st and 4th ) Place: home Exacerbating factors: movement and palpation Other symptoms: none Related Data Home Medications Medication Instructions Recorded Confirmed calcium carb-vit U2-bopdzxfts-sfct 1 tablet PO DAILY 08/19/19 04/25/20 333 mg-200 unit-133 mg-5 mg tablet calcium carbonate 600 mg calcium 600 mg PO DAILY 08/19/19 04/25/20 (1,500 mg) tablet chlorthalidone 25 mg tablet 25 mg PO DAILY 08/19/19 04/25/20 cyanocobalamin (vitamin B-12) 1,000 mcg PO DAILY 08/19/19 04/25/20 1,000 mcg capsule diltiazem HCl 240 mg 240 mg PO DAILY 08/19/19 04/25/20 capsule,extended release 24 hr, controlled labetalol 300 mg tablet 300 mg PO Q12H 08/19/19 04/25/20 lisinopril 40 mg tablet 40 mg PO DAILY 08/19/19 04/25/20 magnesium 250 mg tablet 500 mg PO DAILY tablet 08/19/19 04/25/20 melatonin 5 mg capsule See Rx Instructions .ROUTE 08/19/19 04/25/20 .COMPLEX PRN pyridoxine (vitamin B6) 200 mg 200 mg PO DAILY 08/19/19 04/25/20 tablet warfarin 5 mg tablet 5 mg PO DAILY 08/19/19 04/25/20 celecoxib 200 mg capsule 200 mg PO DAILY PRN 01/04/20 04/25/20 cholecalciferol (vitamin D3) 50 2,000 unit PO DAILY 01/04/20 04/25/20 mcg (2,000 unit) tablet Allergies Allergy/AdvReac Type Severity Reaction Status Date / Time No Known Allergies Allergy Verified 04/12/20 13:21 Review of Systems Constitutional: Constitutional: Denies chills, Denies fatigue, Denies fever(s) and Denies weakness ENT: Denies dysphagia, Denies dizziness, Denies epistaxis and Denies sore throat Respiratory: Respiratory: Denies chest congestion, Denies cough, Denies dyspnea and Denies wheezing Musculoskeletal: Musculoskeletal: Denies back pain Comments: Pain to right first and fourth toes Integumentary/Breasts: Skin/Breast: Denies rash Neurologic: Denies dizziness, Denies syncope and Denies focal weakness Endocrine: Endocrine: Denies fatigue [facility] Past Medical History Medical History (Updated 08/29/20 @ 15:17 by Noris Valenzuela APRN) Abdominal aortic aneurysm Anxiety and depression Arthritis of left glenohumeral joint BMI 28.0-28.9,adult BMI 29.0-29.9,adult Cellulitis of right elbow Chronic anticoagulation Chronic kidney disease, stage 2, mildly decreased GFR COPD (chronic obstructive pulmonary disease) COPD (chronic obstructive pulmonary disease) Descending aortic aneurysm Hyperlipidemia LDL goal <100 Hypertension Olecranon bursitis of right elbow Osteoarthritis involving multiple joints on both sides of body Rhinitis Tobacco dependence due to chewing tobacco Vasculopathy Vitamin B12 deficiency Surgical History Surgical History History of heart valve replacement with mechanical valve History of thoracic aortic aneurysm repair 2010 Victor M Lorenzana Family History Family History Mother Diabetes mellitus Hypertension Mother No problems noted. Social History Social History Smoking packs per day: 1 Smoking cigarettes per day: 20.0 Years smoked: 29 Smoking pack-years: 29.00 Smoking status: Current every day smoker Tobacco type: cigarettes Smokeless tobacco user: chewing tobacco Second h
== END 2020-08-29 15:20 | disposition home or self-care (01) ==
PROVIDERS: Emergency Provider Nurse Practitioner Family; PCP Family Medicine
DX: M79.674 Pain in right toe(s) (principal); F17.210 Nicotine dependence, cigarettes, uncomplicated; F17.220 Nicotine dependence, chewing tobacco, uncomplicated; Z95.2 Presence of prosthetic heart valve; I12.9 Hypertensive chronic kidney disease with stage 1 through stage 4 chronic kidney disease, or unspecified chronic kidney disease; N18.2 Chronic kidney disease, stage 2 (mild); Z79.01 Long term (current) use of anticoagulants; E78.5 Hyperlipidemia, unspecified; M19.90 Unspecified osteoarthritis, unspecified site
CPT/HCPCS: 73630; 99213; G0463

== ENCOUNTER 2020-10-05 00:21 | Outpatient (CLI) | payer BC, SELFPAY ==
[2020-10-05 17:38] LABS: SARS-CoV-2 RNA PCR Negative
== END 2020-10-05 00:22 | disposition home or self-care (01) ==
LOC: ANHCOVIDDT 00:22
PROVIDERS: Family Provider Family Medicine; PCP Family Medicine; Visit Provider Otolaryngology
DX: Z01.812 Encounter for preprocedural laboratory examination (principal); Z20.822 Contact with and (suspected) exposure to COVID-19
CPT/HCPCS: C9803; U0003; U0005

== ENCOUNTER 2020-10-05 09:00 | Outpatient (CLI) | payer BC, SELFPAY ==
--- NOTE | 2020-10-05 09:04 | ECG_ITS ---
Measurements Intervals [place] Rate: 60 P: 57 TN: 326 QRS: -8 QRSD: 108 T: 153 QT: 437 QTc: 437 Interpretive Statements SINUS RHYTHM WITH MARKED FIRST DEGREE AV BLOCK POSSIBLE LEFT ATRIAL ENLARGEMENT LEFT VENTRICULAR HYPERTROPHY WITH ST-T CHANGE BORDERLINE R WAVE PROGRESSION, ANTERIOR LEADS ABNORMAL ECG Electronically Signed On 10-05-2020 9:20:16 [employer] OPERATOR by Macario Martinez D.O.
[2020-10-05 09:52] LABS: INR 1.4; Prothrombin Time 17.5 Seconds (11.1-14.7)
[2020-10-05 09:53] LABS: Anion Gap 6 mmol/L (8-16); Blood Urea Nitrogen 36 mg/dL (9-20); Calcium 9.1 mg/dL (8.4-10.2); Carbon Dioxide 30 mmol/L (22-30); Chloride 101 mmol/L (98-107); Estimated Glomerular Filt Rate 57; Glucose 120 mg/dL (75-110); Partial Thromboplastin Time 28.9 SECONDS (22.3-36.8); Potassium 3.8 mmol/L (3.4-5.0); Sodium 137 mmol/L (137-145)
== END 2020-10-05 09:01 | disposition home or self-care (01) ==
LOC: ANHSURGERY 09:04
PROVIDERS: Anesthesiology; Family Provider Family Medicine; PCP Family Medicine; Visit Provider Otolaryngology
DX: Z01.818 Encounter for other preprocedural examination (principal); I10 Essential (primary) hypertension; Z51.81 Encounter for therapeutic drug level monitoring; Z79.01 Long term (current) use of anticoagulants; I44.0 Atrioventricular block, first degree; I45.9 Conduction disorder, unspecified
CPT/HCPCS: 36415; 80048; 85610; 85730; 93005

== ENCOUNTER 2020-10-08 01:45 | Day surgery (SDC) | payer BC, SELFPAY ==
[2020-10-02 18:06] VITALS: BMI 29.9
[2020-10-08] VITALS (7 sets, daily range): BP systolic 118–145; BP diastolic 69–79; PULSE 63–75; RESP 12–18; TEMP 36.4–36.6; O2SAT 94–100
--- NOTE | 2020-10-08 08:03 | P.OP_ITS ---
Procedure Note - Detailed Date of procedure: 10/08/20 Pre-op diagnosis: deviated septum, turbinate hypertrophy Post-op diagnosis: same Procedure performed: septoplasty, bilateral inferior turbinoplasty Description of procedure: DESCRIPTION OF PROCEDURE: ? After obtaining informed consent and proper site verification the patient was brought to the operating room and placed on the operating table in the supine position. They were placed under general endotracheal anesthesia by the anesthesia provider. The patient was then draped in standard fashion for septoplasty and turbinoplasty. A timeout was performed and the correct patient and procedure were verified. The nasal cavity was injected with 1% lidocaine with 1-100,000 epinephrine and packed with afrin-soaked cottonoid pledgets. ? Attention was then directed to the nasal septum. A hemitransfixion incision was made in the left caudal septum and a mucoperichondrial flap was elevated in the usual fashion. There was evidence of loss of cartilage in the anterior mid- portion of the septum from the crusting and picking the patient was doing on the right side. As a result there was a defect of mucosa on the right. The rest of the flap was elevated under endoscopic visualization and the remainder of the case was performed with endoscopic assistance. Using a D-knife, an incision was made through the cartilaginous septum with care to preserve the appropriate caudal and dorsal ?L-strut? of cartilage. The cartilage was then disarticulated from the bony-cartilaginous junction and the deviated cartilage was removed. Further deviated bone and cartilage was removed from the maxillary crest and posterior bony septum with care to avoid injury to the mucoperichondrial flap using a combination of dissection and Nash-Aj forceps. Once this was completed, the hemitransfixion incision was closed using simple interrupted 4-0 chromic suture. A quilting stitch to reapproximate the mucoperichondrial flaps was then placed using 4-0 plain gut suture on a Gustabo needle. ? Next attention was directed to the turbinates. Using a 0? telescope and 2mm turbinate blade microdebrider, a stab incision was made in the anterior face of the turbinate and dissection was carried posterior to perform submucosal resection. Next the turbinate was outfractured using a blunt instrument. A similar procedure was then performed on the right-hand side without difficulty. Garcia splints covered in mupirocin ointment were placed in the nasal cavity and secured to the membranous septum using a 3-0 Prolene suture. ?The patient was awakened from general anesthesia extubated in the operating room, and transported to the recovery room in stable condition without complication. Anesthesia: DANIEL Surgeon: Melvin Coronel MD Estimated blood loss (mL): 15 Drains: No Packing: Yes (garcia splints) Pathology: none sent Complications: No immediate complications Condition: stable Disposition: same day Findings: right septal perforation with mucosa and cartilage defect, mucosa on left was still intact however.
[2020-10-08] MEDS: ACETAMINOPHEN 500 MG TABLET 1000 MG PO (08:06)
[2020-10-08] MEDS: LACTATED RINGERS 1,000 ML 30 ML IV CONT ×2 (08:06→10:17)
--- NOTE | 2020-10-08 08:09 | PM.IMHP ---
H&P: HPI History of Present Illness Date/Time: 10/08/20 08:09 Chief Complaint: deviated septum Narrative: Darrell Kirby is a 55 year old male with deviated septum Review of Systems Review of Systems: All systems reviewed & are unremarkable except as noted in HPI and below PMFSH Past Medical History Medical History (Updated 10/08/20 @ 08:10 by Melvin Coronel MD) Abdominal aortic aneurysm Anxiety and depression Arthritis of left glenohumeral joint BMI 28.0-28.9,adult BMI 29.0-29.9,adult Cellulitis of right elbow Chronic anticoagulation Chronic kidney disease, stage 2, mildly decreased GFR COPD (chronic obstructive pulmonary disease) COPD (chronic obstructive pulmonary disease) Descending aortic aneurysm Hyperlipidemia LDL goal <100 Hypertension Olecranon bursitis of right elbow Osteoarthritis involving multiple joints on both sides of body Rhinitis Tobacco dependence due to chewing tobacco Vasculopathy Vitamin B12 deficiency Surgical History Surgical History History of heart valve replacement with mechanical valve History of thoracic aortic aneurysm repair 2010 Victor M Lorenzana Family History Family History Mother Diabetes mellitus Hypertension Mother No problems noted. 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 Gender identity (if verbalized by the patient): Male Sexual Orientation (if Verbalized by the Patient): Straight or Heterosexual Spiritual care concerns: No Meds Home Medications and Allergies Home Medications Medication Instructions Recorded Confirmed Type calcium carb-vit U7-wxfxxizor-vrhl 1 tablet PO DAILY 08/19/19 10/08/20 History 333 mg-200 unit-133 mg-5 mg tablet calcium carbonate 600 mg calcium 600 mg PO DAILY 08/19/19 10/08/20 History (1,500 mg) tablet chlorthalidone 25 mg tablet 25 mg PO DAILY 08/19/19 10/08/20 History cyanocobalamin (vitamin B-12) 1,000 mcg PO DAILY 08/19/19 10/08/20 History 1,000 mcg capsule diltiazem HCl 240 mg 240 mg PO DAILY 08/19/19 10/08/20 History capsule,extended release 24 hr, controlled labetalol 300 mg tablet 300 mg PO Q12H 08/19/19 10/08/20 History lisinopril 40 mg tablet 40 mg PO DAILY 08/19/19 10/08/20 History magnesium 250 mg tablet 500 mg PO DAILY tablet 08/19/19 10/08/20 History melatonin 5 mg capsule See Rx Instructions .ROUTE 08/19/19 10/02/20 History .COMPLEX PRN pyridoxine (vitamin B6) 200 mg 200 mg PO DAILY 08/19/19 10/08/20 History tablet warfarin 5 mg tablet 5 mg PO DAILY 08/19/19 10/08/20 History celecoxib 200 mg capsule 200 mg PO DAILY PRN 01/04/20 10/02/20 History cholecalciferol (vitamin D3) 50 2,000 unit PO DAILY 01/04/20 10/08/20 History mcg (2,000 unit) tablet citalopram 20 mg tablet 20 mg PO DAILY #90 tablet 01/04/20 10/08/20 Rx warfarin 2 mg tablet 2 mg PO DAILY #90 tablet 01/04/20 10/08/20 Rx albuterol sulfate 90 mcg/actuation 1 inhalation INHALATION Q4H PRN 30 02/09/20 10/02/20 Rx aerosol inhaler Days #8.5 gm hydralazine 25 mg tablet 25 mg PO TID #270 tablet 02/14/20 10/08/20 Rx cyanocobalamin (vitamin B-12) 1,000 mcg PO QAM #90 tablet 04/15/20 10/08/20 Rx [Vitamin B-12] tiotropium bromide 2.5 See Rx Instructions .ROUTE 05/07/20 10/08/20 Rx mcg/actuation mist for inhalation .COMPLEX #12 gm bupropion HCl 300 mg PO HS 10/08/20 10/08/20 History Allergies Allergy/AdvReac Type Severity Reaction Status Date / T
--- NOTE | 2020-10-08 08:12 | WPDHPUPDATE1 ---
History and Physical Update Update Date/Time: 10/08/20 08:12 History and Physical has been reviewed, including an updated exam of the patient. There are NO changes in the patient's condition. Risks, benefits, and alternatives have been discussed and questions answered. Patient agrees to proceed with procedure.
--- NOTE | 2020-10-08 08:50 | WPDANESEPPF ---
Anes - Initial Pre Proc Eval Procedure: Operation Date: 10/08/20 09:30 Proposed Procedures p Septoplasty - Melvin Coronel MD s Bilateral Turbinate Reduction - Melvin Coronel MD Date/Time: 10/08/20 08:50 Surgeon: Melvin Coronel MD Pre Op Diagnosis: deviated septum, turbinate hypertrophy Patient Data Age: 55 Gender: M Height: 6 ft Weight: 99.4 kg Last Vital Signs Temp 97.6 F 10/08/20 08:12 Pulse 70 10/08/20 08:12 Resp 16 10/08/20 08:12 BP 118/76 10/08/20 08:12 Pulse Ox 97 10/08/20 08:12 Allergies Allergy/AdvReac Type Severity Reaction Status Date / Time No Known Allergies Allergy Verified 10/08/20 07:36 Home Medications Medication Instructions Recorded Confirmed Type calcium carb-vit [id number] 1 tablet PO DAILY 08/19/19 10/08/20 History 333 mg-200 unit-133 mg-5 mg tablet calcium carbonate 600 mg calcium 600 mg PO DAILY 08/19/19 10/08/20 History (1,500 mg) tablet chlorthalidone 25 mg tablet 25 mg PO DAILY 08/19/19 10/08/20 History cyanocobalamin (vitamin B-12) 1,000 mcg PO DAILY 08/19/19 10/08/20 History 1,000 mcg capsule diltiazem HCl 240 mg 240 mg PO DAILY 08/19/19 10/08/20 History capsule,extended release 24 hr, controlled labetalol 300 mg tablet 300 mg PO Q12H 08/19/19 10/08/20 History lisinopril 40 mg tablet 40 mg PO DAILY 08/19/19 10/08/20 History magnesium 250 mg tablet 500 mg PO DAILY tablet 08/19/19 10/08/20 History melatonin 5 mg capsule See Rx Instructions .ROUTE 08/19/19 10/02/20 History .COMPLEX PRN pyridoxine (vitamin B6) 200 mg 200 mg PO DAILY 08/19/19 10/08/20 History tablet warfarin 5 mg tablet 5 mg PO DAILY 08/19/19 10/08/20 History celecoxib 200 mg capsule 200 mg PO DAILY PRN 01/04/20 10/02/20 History cholecalciferol (vitamin D3) 50 2,000 unit PO DAILY 01/04/20 10/08/20 History mcg (2,000 unit) tablet citalopram 20 mg tablet 20 mg PO DAILY #90 tablet 01/04/20 10/08/20 Rx warfarin 2 mg tablet 2 mg PO DAILY #90 tablet 01/04/20 10/08/20 Rx albuterol sulfate 90 mcg/actuation 1 inhalation INHALATION Q4H PRN 30 02/09/20 10/02/20 Rx aerosol inhaler Days #8.5 gm hydralazine 25 mg tablet 25 mg PO TID #270 tablet 02/14/20 10/08/20 Rx cyanocobalamin (vitamin B-12) 1,000 mcg PO QAM #90 tablet 04/15/20 10/08/20 Rx [Vitamin B-12] tiotropium bromide 2.5 See Rx Instructions .ROUTE 05/07/20 10/08/20 Rx mcg/actuation mist for inhalation .COMPLEX #12 gm bupropion HCl 300 mg PO HS 10/08/20 10/08/20 History Patient hx anesthesia problems: none Family hx anesthesia problems: none PMFSH Past Medical History Medical History (Updated 10/08/20 @ 08:10 by Melvin Coronel MD) Abdominal aortic aneurysm Anxiety and depression Arthritis of left glenohumeral joint BMI 28.0-28.9,adult BMI 29.0-29.9,adult Cellulitis of right elbow Chronic anticoagulation Chronic kidney disease, stage 2, mildly decreased GFR COPD (chronic obstructive pulmonary disease) COPD (chronic obstructive pulmonary disease) Descending aortic aneurysm Hyperlipidemia LDL goal <100 Hypertension Olecranon bursitis of right elbow Osteoarthritis involving multiple joints on both sides of body Rhinitis Tobacco dependence due to chewing tobacco Vasculopathy Vitamin B12 deficiency Surgical History Surgical History (Updated 10/08/20 @ 08:52 by Rudy Martell MD) History of heart valve replacement with mechanical valve aortic valve History of thoracic aortic aneurysm repair 2010 Victor M Lorenzana Family History Family History Mother Diabetes mellitus Hypertension Mother No problems noted. Social History Social History Smoking packs per day: 1 Smoking cigarettes per day: 20.0 Years smoked: 29 Smoking pack-years: 29.00 Smoking status: Current every day smoker Tobacco type: cigarettes Smokeless tobacco user: chewing tobacco Second hand tob
[2020-10-08] MEDS: ceFAZolin 2 GM/D5W 50 ML 2 GM/50 ML BAG IVPB (09:10)
[2020-10-08] MEDS: MUPIROCIN 2% OINT 22 GM TUBE 1 APPLIC EACH NARE (10:25)
[2020-10-08] MEDS: OXYMETAZOLINE HCL 0.05% NAS 15 ML BTL (*BKC) 1 SPRAY NASAL (10:26)
[2020-10-08] MEDS: ALBUTEROL SULFATE (*SP) AEROSOL 1 PUFF 2 PUFF INHALATION (10:50)
--- NOTE | 2020-10-08 12:02 | SUR.PHASEII ---
[address] dominguez about pt currently on lovenox has one dose left, pt ok to resume coumadin per dr dominguez.
== END 2020-10-08 12:04 | disposition home or self-care (01) ==
PROVIDERS: Family Provider Family Medicine; PCP Family Medicine; Visit Provider Otolaryngology
PROC: (CPT 30520; principal; 2020-10-08 09:30)
PROC: (CPT 30140; 2020-10-08 09:30)
DX: J34.2 Deviated nasal septum (principal); J34.3 Hypertrophy of nasal turbinates; F41.8 Other specified anxiety disorders; I12.9 Hypertensive chronic kidney disease with stage 1 through stage 4 chronic kidney disease, or unspecified chronic kidney disease; N18.2 Chronic kidney disease, stage 2 (mild); J44.9 Chronic obstructive pulmonary disease, unspecified; E78.5 Hyperlipidemia, unspecified; M19.90 Unspecified osteoarthritis, unspecified site; E53.8 Deficiency of other specified B group vitamins; Z79.4 Long term (current) use of insulin; F17.210 Nicotine dependence, cigarettes, uncomplicated; F17.220 Nicotine dependence, chewing tobacco, uncomplicated; Z79.01 Long term (current) use of anticoagulants
CPT/HCPCS: 30140; 30520; A9270; J0330; J0690; J2250; J2405; J2704; J3010; J7120

== ENCOUNTER 2020-10-25 10:30 | Outpatient (RCR) | payer OTHER, BC, SELFPAY ==
[2020-07-31 10:30] VITALS: BP_SYST 65
--- NOTE | 2020-07-31 11:54 | PTOPEVAL ---
INITIAL PHYSICAL THERAPY EVALUATION and PLAN OF CAR Thank you for referring Darrell Kirby to [facility].? Darrell is scheduled to be seen for physical therapy?initially for 2x/week for 4 weeks, but plan of care is being written for 12 weeks. Please review, sign, date and return this plan of care LIBIA. I agree with and certify that the following plan of care is medically necessary. Referring Physician Date Admitting Provider: Attending Provider: Christoph Tam MD Referring Provider: *PT Outpatient Evaluation Start: 07/31/20 10:34 Freq: Status: Active Protocol: Document 07/31/20 10:30 ZAIRA (Rec: 07/31/20 11:54 ZAIRA [id number]) Therapy Assessment Status Assessment Status Assessment Status Evaluation Outpatient Past Medical History Past Medical History Source of Past Medical History Recalled from Previous Visit, Confirmed with Patient/Family Neurological History Hx Neurological Disorders No Significant History Cardiovascular History Hx Cardiac Catheterization Yes Hx Cardiac Surgery Yes Hx Hypertension Yes Hx Valve Replacement Yes: mechanical Hx Other Cardiac Disorders Yes: blood vessel repair in neck after valve repair/aortic arteries decron Respiratory History Hx Chronic Obstructive Pulmonary Disease Yes (COPD) Gastrointestinal History Hx Gastrointestinal Disorders No Significant History Genitourinary History Hx Urinary Tract Infection Yes Musculoskeletal History Hx Arthritis Yes Hx Back Pain Yes Hx Degenerative Disk Disease Yes Hx Fractures Yes: rt wrist Hx Orthopedic Surgery Yes: L RCR, biceps tenodesis - 07/06/2020 Hematological History Hx Blood Transfusions Yes Endocrine History Hx Endocrine Disorders No Significant History HEENT History Hx Sinus Problems Yes Integumentary History Hx Skin Disorders No Significant History Reproductive History Hx Reproductive Disorders No Significant History Psychosocial History Hx Psychiatric Disorders No Significant History Pain History Has Past Pain Affected Your Daily Life Yes Anesthesia History Hx Anesthesia Reactions No Significant History Other History Hx Other Surgeries Yes: L vocal cord surgery Evaluation Information Problem Diagnosis L RCR, biceps tenodesis Onset 07/06/2020 Cause traumatic event - 03/12/2020 Subjective Information Abimael reports that MRI was Query Text:As Reported By Patient/ delayed and then Dr Tam was Family on leave of practice - referred to Dr. Anderson
--- NOTE | 2020-08-07 08:08 | PCPTNOTE ---
Abimael went to [place] office this date instead of [facility]. Cancelled today's appointment.
[2020-08-30 10:00] VITALS: BP_SYST 180
--- NOTE | 2020-08-30 11:00 | PTOPEVAL ---
PHYSICAL THERAPY RE-EVALUATION and UPDATED PLAN OF CARE Thank you for referring Darrell Kirby to [facility].? Abimael is progressing well with regaining of AROM of L g-h jt. Mild scapular strengthening has been initiated in sidelying. Pain levels can still be elevated at times. He will continue in PT 2x/week for 4 weeks. Please review, sign, date and return this plan of care LIBIA. I agree with and certify that the following plan of care is medically necessary. Referring Physician Date Admitting Provider: Attending Provider: Jaime Bobby MD Referring Provider: *PT Outpatient Evaluation Start: 07/31/20 10:34 Freq: Status: Active Protocol: Document 08/30/20 10:00 ZAIRA (Rec: 08/30/20 10:58 ZAIRA [id number]) Therapy Assessment Status Assessment Status Assessment Status Re-evaluation Evaluation Information Problem Subjective Information Abimael reports reaching behind Query Text:As Reported By Patient/ back and neck are the most Family difficult and painful movements for him. Pain Assessment Timing of Pain Assessment Timing of Pain Assessment Assessment Pain Scale Pain Scale Used Numeric (1 - 10) Self Report Pain Assessment Left Shoulder(s) Reported Pain Level 2 Lowest Pain Intensity 2 Greatest Pain Intensity 10 Pain Score Pain Score 2: Self Report Interventions Used Interventions Used By Clinicians Exercise,Heat,Ice,Manual Therapy Techniques Upper Extremity Range of Motion Scapular/ Shoulder Range of Motion Left Shoulder Flexion - Active 165 Shoulder Flexion - Passive 175 Shoulder Extension - Active 63 Shoulder Abduction - Active 172 Shoulder Abduction - Passive 180 Shoulder Medial Rotation - Passive 77 Shoulder Medial Rotation - Active T12 Query Text:Reach Behind the Back Shoulder Lateral Rotation - Passive 80 Shoulder Lateral Rotation - Active T1 Query Text:Reach Behind the Head Scapular/Shoulder Range of Motion ER in neutral - 83 Comments active ROM done in standing, passive ROM in supine PT Clinical Summary Clinical Summary Protocol: PTEVCODE PT Clinical Summary SPADI Pain - 84% Disability score - 73% Total score - 77 % Abimael has regained AROM with L g-h jt. Mild scapular strengthening has been initiated in side lying. Still mild capsular tightness present at end range flexion and IR. Pain levels can still be elevated at times. Plan
--- NOTE | 2020-09-11 08:04 | PCPTNOTE ---
Patient called & cancelled scheduled appointment this date due to inability to make appointment.
--- NOTE | 2020-09-27 10:03 | PCPTNOTE ---
Patient called & cancelled scheduled appointment this date due to electrical problems at home.
--- NOTE | 2020-10-02 09:59 | PTOPEVAL ---
PHYSICAL THERAPY RE-EVALUATION AND UPDATED PLAN OF CARE Thank you for referring Darrell Kirby to [facility].? Abimael continues to progress in PT with upgrading of L g-h jt ROM, strengthening for L scapular, deltoid, and RTC muscles, and upgrading of ADLs, IADLs. He will continue in physical therapy? 2x/week for 4 weeks. Please review, sign, date and return this plan of care LIBIA. I agree with and certify that the following plan of care is medically necessary. Referring Physician Date Admitting Provider: Attending Provider: Jaime Bobby MD Referring Provider: *PT Outpatient Evaluation Start: 07/31/20 10:34 Freq: Status: Active Protocol: Document 10/02/20 09:05 ZAIRA (Rec: 10/02/20 09:59 ZAIRA [id number]) Therapy Assessment Status Assessment Status Assessment Status Re-evaluation Pain Assessment Timing of Pain Assessment Timing of Pain Assessment Assessment Pain Scale Pain Scale Used Numeric (1 - 10) Self Report Pain Assessment Left Shoulder(s) Reported Pain Level 3 Pain Description Aching,Sharp Lowest Pain Intensity 0 Greatest Pain Intensity 8 Pain Score Pain Score 3: Self Report Interventions Used Interventions Used By Clinicians Exercise,Ice,Manual Therapy Techniques Upper Extremity Range of Motion Scapular/ Shoulder Range of Motion Left Shoulder Flexion - Active 170 Shoulder Extension - Active 75 Shoulder Abduction - Active 180 Shoulder Medial Rotation - Active 90 Shoulder Medial Rotation - Active T11 Query Text:Reach Behind the Back Shoulder Lateral Rotation - Active 85 Shoulder Lateral Rotation - Active T1 Query Text:Reach Behind the Head Scapular/Shoulder Range of Motion ER in neutral - 85 Comments active ROM done in standing, IR/ER in supine Upper Extremity Muscle Strength Testing Scapular/Shoulder Left Shoulder Flexion Strength 4- Good - Shoulder Extension Strength 4+ Good + Shoulder Abduction Strength 3+ Fair + Shoulder Medial Rotation Strength 4+ Good + Shoulder Lateral Rotation Strength 4+ Good + PT Clinical Summary Clinical Summary Protocol: PTEVCODE PT Clinical Summary SPADI - pain score 15/50 - 30% disability score - 14/80 - 18% total score 29/130 - 22% Abimael continues to make ROM and ADL/IADL gains and now making strength gains. He still has deltoid and RTC weakness which will continue to be addressed in PT. He is to continue with skilled PT. PT Services Indicated Yes
--- NOTE | 2020-10-16 09:28 | PCPTNOTE ---
Patient did not show up for scheduled appointment this date. Called and patient stated he looked at the time wrong.
--- NOTE | 2020-10-18 10:21 | PTOPEVAL ---
PHYSICAL THERAPY RE-EVALUATION and UPDATED PLAN OF CARE Thank you for referring Darrell Kirby to [facility].? Abimael continues to make gains towards goals set but still will benefit from further strengthening and upgrading of functional abilities. Abimael is scheduled to be seen for physical therapy? 2x/week for 4 weeks. Please review, sign, date and return this plan of care LIBIA. I agree with and certify that the following plan of care is medically necessary. Referring Physician Date Admitting Provider: Attending Provider: Jaime Bobby MD Referring Provider: Therapy Assessment Status Assessment Status Assessment Status Re-evaluation Evaluation Information Problem Subjective Information Abimael reports still will have Query Text:As Reported By Patient/ a popping sensation every once Family in awhile with a certain movement. Reaching out to side - (abduction) - will still have some pain. Still decreased strength in overhead position as well as hesitant to move heavy items. Pain Assessment Self Report Pain Assessment Left Shoulder(s) Reported Pain Level 1 Other Pain Description will have sharp pain after pop occurs Lowest Pain Intensity 1 Greatest Pain Intensity 7 Upper Extremity Range of Motion Scapular/ Shoulder Range of Motion Left Shoulder Flexion - Active 175 Shoulder Extension - Active 75 Shoulder Abduction - Active 180 Shoulder Medial Rotation - Active 90 Shoulder Medial Rotation - Active T10 Query Text:Reach Behind the Back Shoulder Lateral Rotation - Active 85 Shoulder Lateral Rotation - Active T1 Query Text:Reach Behind the Head Scapular/Shoulder Range of Motion ER in neutral - 87 Comments active ROM done in standing, IR/ER in supine Upper Extremity Muscle Strength Testing Scapular/Shoulder Left Shoulder Flexion Strength 4 Good Shoulder Extension Strength 5 Normal Shoulder Abduction Strength 4- Good - Shoulder Medial Rotation Strength 5 Normal Shoulder Lateral Rotation Strength 4+ Good + PT Clinical Summary PT Clinical Summary SPADI pain score - 48% disability score - 26% total score - 35% Abimael continues to progress with ROM, strengthening and function with L UE but still limited in overhead positions and in abduction/frontal plane positions. He also reports popping sensation with L marisel
--- NOTE | 2020-10-25 17:00 | PCPTNOTE ---
This treatment is being continued on visit number [id number]. Please see documentation on both accounts to view progress. Completed interventions, outcomes, and problems have been marked as Inactive to facilitate the copying of the Care plan routine for recurring accounts.
== END 2020-10-25 13:14 | disposition home or self-care (01) ==
LOC: ANHPT 10:30
PROVIDERS: PCP Physician Assistant
DX: M75.122 Complete rotator cuff tear or rupture of left shoulder, not specified as traumatic (principal)
CPT/HCPCS: 97110; 97140; 97161

== ENCOUNTER 2020-12-06 10:30 | Outpatient (RCR) | payer OTHER, BC, SELFPAY ==
[2020-10-25 13:23] VITALS: BP_SYST 180
--- NOTE | 2020-10-25 17:01 | PCPTNOTE ---
The treatment documented on this account is a continuation of the treatment documented on visit number [id number]. Please see documentation on both accounts to view progress. The Plan of Care has been transitioned and updated within the new V#. I have addressed and agree with the discipline specific Problems, Interventions, and Goals for the current certification period. Completed interventions, outcomes, and problems have been marked as Inactive to facilitate the copying of the Care plan routine for recurring accounts.
--- NOTE | 2020-11-15 13:08 | PTOPEVAL ---
PHYSICAL THERAPY RE-EVALUATION and UPDATED PLAN OF CARE Thank you for referring Darrell Kirby to [facility].? Abimael continues to maintain WNL L g-h jt ROM, making strength gains but weakness still remains with L anterior and middle deltoid and L supraspinatus, and making functional gains but has not done any heavier duty type of work at home. He will continue to benefit from skilled PT 2x/wk x 4 wks. Please review, sign, date and return this plan of care LIBIA. I agree with and certify that the following plan of care is medically necessary. Referring Physician Date Admitting Provider: Attending Provider: Jaime Bobby MD Referring Provider: Therapy Assessment Status Assessment Status Assessment Status Re-evaluation Evaluation Information Problem Diagnosis s/p L RTC surgery Onset 07/06/2020 Subjective Information Abimael reports some movements Query Text:As Reported By Patient/ will result in discomfort. Family Trying not to lift anything too heavy - groceries, etc. 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 Pain Assessment Timing of Pain Assessment Timing of Pain Assessment Assessment Pain Scale Pain Scale Used Numeric (1 - 10) Self Report Pain Assessment Left Shoulder(s) Reported Pain Level 1 Lowest Pain Intensity 0 Greatest Pain Intensity 3 Pain Score Pain Score 1: Self Report Interventions Used Interventions Used By Clinicians Exercise Upper Extremity Range of Motion Scapular/ Shoulder Range of Motion Left Shoulder Flexion - Active 175 Shoulder Extension - Active 67 Shoulder Abduction - Active 180 Shoulder Medial Rotation - Active T11 Query Text:Reach Behind the Back Shoulder Lateral Rotation - Active T3 Query Text:Reach Behind the Head Scapular/Shoulder Range of Motion ER in neutral - 85 Comments Upper Extremity Muscle Strength Testing Scapular/Shoulder Left Shoulder Flexion Strength 4+ Good + Shoulder Extension Strength 4+ Good + Shoulder Abduction Strength 4 Good Shoulder Medial Rotation Strength 5 Normal Shoulder Lateral Rotation Strength 5 Normal Shoulder Strength Comments supraspinatus - 4 infraspinatus - 4+ teres minor - 4+ PT Clinical Summary Clinical Summary Protocol: PTEVCODE PT Clinical Summary SPADI pain score - 20% disability score - 18% total score - 18% Abimael continues to make gains in PT. ROM continues to be WNL. Strength continues to improved but
--- NOTE | 2020-12-06 11:42 | PTOPEVAL ---
PHYSICAL THERAPY DISCHARGE SUMMARY Thank you for referring Darrell Kirby to [facility].? Abimael is doing well - has met goals set. He is ready for discharge from PT if MD is in agreement. He has been seen for a total of 33 visits. I agree with Abimael's discharge from PT. 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 If working on truck - will purposely use L UE with tools to see how the arm handles the activity. 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 In addition, Abimael thinks L shoulder is stronger now than before the injury. Pain Assessment Timing of Pain Assessment Timing of Pain Assessment Assessment Pain Scale Pain Scale Used Numeric (1 - 10) Self Report Pain Assessment Left Shoulder(s) Reported Pain Level 0 Lowest Pain Intensity 0 Greatest Pain Intensity 3 Pain Score Pain Score 0: Self Report Upper Extremity Range of Motion Scapular/ Shoulder Range of Motion Left Shoulder Flexion - Active 175 Shoulder Extension - Active 74 Shoulder Abduction - Active 180 Shoulder Medial Rotation - Active 90 Shoulder Medial Rotation - Active T10 Query Text:Reach Behind the Back Shoulder Lateral Rotation - Active 90 Shoulder Lateral Rotation - Active T3 Query Text:Reach Behind the Head Scapular/Shoulder Range of Motion ER in neutral - 90 Comments Upper Extremity Muscle Strength Testing Scapular/Shoulder Left Shoulder Elevation - Upper Trapezius 5 Normal Scapular Retraction - Middle Trapezius 5 Normal Scapular Retraction - Lower Trapezius 5 Normal Scapular Protraction - Serratus 5 Normal Scapular Strength Comments supraspinatus - 4+ infraspinatus - 4+ teres minor - 5 middle and lower trap testing - resistance given to scapula - not distal UE Shoulder Flexion Strength 4+ Good + Shoulder Extension Strength 4+ Good + Shoulder Abduction Strength 4+ Good + Shoulder Medial Rotation Strength 5 Normal Shoulder Lateral Rotation Strength 5 Normal P
== END 2020-12-10 07:26 | disposition other institution (70) ==
LOC: ANHPT 10:30
PROVIDERS: PCP Family Medicine
DX: M75.122 Complete rotator cuff tear or rupture of left shoulder, not specified as traumatic (principal)
CPT/HCPCS: 97110; 97140

== ENCOUNTER → 2021-12-23 09:08 | Outpatient (CLI) | payer BC, SELFPAY ==
--- NOTE | ~2021-12-23 | XR_ITS ---
EXAM: XR shoulder RT min 2V HISTORY: M25.511 - Pain in right shoulder COMPARISON: None available FINDINGS: Intact sternotomy wires. Mediastinal and subclavicular surgical clips. Severe AC joint hyp ertrophy, with superiorly directed osteophytosis. Mild joint space narrowing and osteophytosis at the glenohumeral joint. No fracture or dislocation. Visualized lung parenchyma is clear. IMPRESSION: Severe AC joint hypertrophy. Mild glenohumeral osteoarthritis. Reviewed, dictated and finalized at location K.
== END ==
PROVIDERS: PCP Family Medicine; Visit Provider Family Medicine
DX: M19.011 Primary osteoarthritis, right shoulder (principal)
CPT/HCPCS: 73030

== ENCOUNTER → 2022-01-28 14:20 | Outpatient (CLI) | payer BC, SELFPAY ==
--- NOTE | ~2022-01-28 | XR_ITS ---
EXAMINATION: XR knee LT min 4V DATE: 01/28/2022 14:41 INDICATION: Left knee pain. TECHNIQUE: 4 views of left knee including standing views were obtained. COMPARISON: Left knee radiographs 01/27/2019 FINDINGS: Bone alignment is normal. No fracture. There is mild tricompartmental osteoarthritis charac terized by tiny osteophytes. No joint space narrowing. No knee joint effusion. IMPRESSION: 1. Mild left knee osteoarthritis. Reviewed, dictated and finalized at location B.
--- NOTE | ~2022-01-28 | XR_ITS ---
EXAMINATION: XR knee RT min 4V DATE: 01/28/2022 14:41 INDICATION: Right knee pain. TECHNIQUE: 4 views of right knee including standing views were obtained. COMPARISON: Right knee radiographs 01/27/2019 FINDINGS: Bone alignment is normal. No fracture. There is mild tricompartmental osteoarthritis charac terized by tiny osteophytes. No joint space narrowing. No knee joint effusion. IMPRESSION: 1. Mild right knee osteoarthritis. Reviewed, dictated and finalized at location B.
== END ==
PROVIDERS: PCP Family Medicine; Visit Provider Family Medicine
DX: M17.0 Bilateral primary osteoarthritis of knee (principal)
CPT/HCPCS: 73564

== ENCOUNTER 2022-06-27 09:55 | Outpatient (CLI) | payer BC, SELFPAY ==
--- NOTE | ~2022-06-27 | XR_ITS ---
EXAMINATION: XR ankle LT min 3V, XR ankle RT min 3V, XR foot RT min 3V, XR foot LT min 3V DATE: 06/27/2022 10:28 INDICATION: Chronic bilateral foot and ankle pain TECHNIQUE: 1. Anteroposterior, mortise, additional oblique and lateral view of the left ankle were obtained. 2. Dorsoplantar, two oblique and lateral views of the left foot were obtained. 3. Anteroposterior, mortise, additional oblique and lateral view of the right ankle were obtained. 4. Dorsoplantar, two oblique and lateral views of the right foot were obtained. COMPARISON: None. FINDINGS: Alignment of the bilateral feet and ankles is normal. No fracture at either foot or ankle. Mild polya rticular osteoarthritis with typical distribution involving the bilateral first metatarsophalangeal a nd multiple tarsometatarsal and interphalangeal joints. There is also relatively symmetric pattern of tiny subarticular lucencies with sclerotic margins at the lateral aspect of the articular surfaces a t the heads of the left and right second metatarsals with relatively preserved joint space which coul d represent either degenerative subchondral cysts related to minimal osteoarthritis or small regions of osteonecrosis. The soft tissues are unremarkable. No ankle joint effusions. IMPRESSION: 1. New tiny subarticular lucencies with sclerotic margins at the heads of the left and right second m etatarsals which could represent either osteonecrosis (Freiberg's infraction) or degenerative subchon dral cyst related to otherwise minimal osteoarthritis. 2. Mild polyarticular osteoarthritis at multiple additional joints in the bilateral mid and forefeet. Reviewed, dictated and finalized at location B. IMPRESSION: 1. New tiny subarticular lucencies with sclerotic margins at the heads of the l eft and right second metatarsals which could represent either osteonecrosis (Fr eiberg's infraction) or degenerative subchondral cyst related to otherwise mini mal osteoarthritis. 2. Mild polyarticular osteoarthritis at multiple additional joints in the bilat eral mid and forefeet. IMPRESSION: 1. New tiny subarticular lucencies with sclerotic margins at the heads of the l eft and right second metatarsals which could represent either osteonecrosis (Fr eiberg's infraction) or degenerative subchondral cyst related to otherwise mini mal osteoarthritis. 2. Mild polyarticular osteoarthritis at multiple additional joints in the [facility] mid and forefeet. IMPRESSION: 1. New tiny subarticular lucencies with sclerotic margins at the heads of the l eft and right second metatarsals which could represent either osteonecrosis (Fr eiberg's infraction) or degenerative subchondral cyst related to otherwise mini mal osteoarthritis. 2. Mild polyarticular osteoarthritis at multiple additional joints in the [facility] mid and forefeet.
== END 2022-06-27 09:56 | disposition home or self-care (01) ==
PROVIDERS: PCP Family Medicine; Visit Provider Family Medicine
DX: M19.071 Primary osteoarthritis, right ankle and foot (principal); M19.072 Primary osteoarthritis, left ankle and foot
CPT/HCPCS: 73610; 73630

== ENCOUNTER 2022-12-06 09:09 | Outpatient (CLI) | payer BC, SELFPAY ==
[2022-12-06 09:40] LABS: Basophils Absolute Auto 0.1 K/mm3 (0.0-0.1); Basophils Percent Auto 0.7 % (0.2-1.2); Eosinophils Absolute Auto 0.6 K/mm3 (0-0.3); Eosinophils Percent Auto 8.1 % (0-4.4); Hemoglobin 13.7 g/dL (14.0-18.0); Immature Granulocyte Absolute 0.01 K/mm3 (0.00-0.031); Immature Granulocyte Percent A 0.1 % (0-0.5); Lymphocytes Absolute Auto 1.72 K/mm3 (0.9-3.2); Lymphocytes Percent Auto 24.4 % (18.3-44.2); Mean Corpuscular HGB Conc 33.4 g/dl (32-36); Mean Corpuscular Hemoglobin 30.7 pg (26-34); Mean Corpuscular Volume 91.9 fl (80-100); Mean Platelet Volume 10.7 fl (7.4-10.4); Monocytes Absolute Auto 0.7 K/mm3 (0.1-0.6); Monocytes Percent Auto 9.9 % (2.6-8.5); Neutrophils Percent Auto 56.8 % (45.5-73.1); Platelet Count Result 261 k/mm3 (150-375); Red Blood Count 4.46 M/mm3 (4.6-6.20); Red Cell Distribution Width 12.3 % (11.5-14.5)
[2022-12-06 09:57] LABS: Appearance Urine Clear (Clear); Bilirubin Urine Negative (Negative); Blood Urine Negative (Negative); Color Urine Yellow (Yellow); Glucose Urine UA Negative (Negative); Ketones Urine Negative (Negative); Leukocyte Esterase Ur Negative LEU/UL (NEGATIVE); Nitrate Urine Negative (Negative); Protein Urine Negative (Negative); Specific Grav Ur 1.022 (1.001-1.035); Urobilinogen Urine 0.2 mg/dL (<2.0)
[2022-12-06 10:01] LABS: Alanine Aminotransferase 30 U/L (6-50); Albumin Level 4.5 g/dL (3.5-5.1); Alkaline Phosphatase 72 U/L (38-126); Anion Gap 7 mmol/L (8-16); Aspartate Amino Transferase 38 U/L (17-59); Bilirubin,Total 0.5 mg/dL (0.2-1.3); Blood Urea Nitrogen 31 mg/dL (9-20); Carbon Dioxide 31 mmol/L (22-30); Chloride 101 mmol/L (98-107); Cholesterol 201 mg/dL (0-200); Estimated Glomerular Filt Rate 52; Glucose 104 mg/dL (65-110); HDL Direct 34 mg/dL; Potassium 3.8 mmol/L (3.4-5.0); Sodium 139 mmol/L (137-145); Triglycerides 121 mg/dL (<150)
[2022-12-06 10:11] LABS: LDL Cholesterol Direct 119 mg/dL
[2022-12-06 10:22] LABS: Add Urine Microscopic? NO
[2022-12-06 10:31] LABS: Prostate Specific Antigen 1.1 ng/mL (< OR = 4.0); Thyroid Stimulating Hormone 0.974 uIU/mL (0.465-4.680)
[2022-12-06 10:39] LABS: Iron 72 ug/dL (49-181)
[2022-12-06 10:49] LABS: Percent Iron Saturation 20 % (20-50)
[2022-12-06 11:06] LABS: Folic Acid 7.4 ng/mL (2.76->20)
== END 2022-12-06 09:10 | disposition home or self-care (01) ==
LOC: ANHLAB 09:11
PROVIDERS: PCP Family Medicine; Visit Provider Family Medicine
DX: D64.9 Anemia, unspecified (principal); Z12.5 Encounter for screening for malignant neoplasm of prostate; E78.2 Mixed hyperlipidemia; I10 Essential (primary) hypertension
CPT/HCPCS: 36415; 80053; 80061; 81003; 82607; 82728; 82746; 83540; 83550; 84153; 84443; 85025; G0103

== ENCOUNTER 2023-02-23 15:04 | Outpatient (CLI) | payer BC, SELFPAY ==
--- NOTE | ~2023-02-23 | US_ITS ---
EXAMINATION: US arterial duplex LE RT DATE: 02/23/2023 15:40 INDICATION: Acute postoperative right groin pain. TECHNIQUE: Multiple grayscale and Doppler ultrasound images of the right inguinal region were obtaine d. COMPARISON: None FINDINGS: There is a 3.1 x 1.5 cm pseudoaneurysm in right inguinal region superficial to an artery. IMPRESSION: 1. Pseudoaneurysm in right inguinal region arising from an artery that may be the common femoral faisal ry or external iliac artery. Reviewed, dictated and finalized at location A. IMPRESSION: 1. Pseudoaneurysm in right inguinal region arising from an artery that may be t he common femoral artery or external iliac artery.
== END 2023-02-23 15:05 | disposition home or self-care (01) ==
PROVIDERS: PCP Family Medicine; Visit Provider Internal Medicine Cardiovascular Disease
DX: R10.31 Right lower quadrant pain (principal); G89.18 Other acute postprocedural pain; I72.8 Aneurysm of other specified arteries
CPT/HCPCS: 93926

== ENCOUNTER 2023-03-23 13:56 | Outpatient (CLI) | payer BC, SELFPAY ==
[2023-03-23 14:37] LABS: Alanine Aminotransferase 35 U/L (6-50); Albumin Level 4.6 g/dL (3.5-5.1); Alkaline Phosphatase 79 U/L (38-126); Anion Gap 7 mmol/L (8-16); Aspartate Amino Transferase 32 U/L (17-59); Bilirubin,Total 0.5 mg/dL (0.2-1.3); Blood Urea Nitrogen 35 mg/dL (9-20); Calcium 9.3 mg/dL (8.4-10.2); Carbon Dioxide 30 mmol/L (22-30); Chloride 100 mmol/L (98-107); Estimated Glomerular Filt Rate 44; Glucose 110 mg/dL (65-110); Potassium 3.2 mmol/L (3.4-5.0); Sodium 137 mmol/L (137-145); Uric Acid 10.7 mg/dL (3.5-8.5)
== END 2023-03-23 13:57 | disposition home or self-care (01) ==
LOC: ANHLAB 13:58
PROVIDERS: PCP Family Medicine; Visit Provider Podiatrist Foot & Ankle Surgery
DX: M10.079 Idiopathic gout, unspecified ankle and foot (principal)
CPT/HCPCS: 36415; 80053; 84550

== ENCOUNTER 2023-03-31 13:42 | Outpatient (CLI) | payer BC, SELFPAY ==
[2023-03-31 14:19] LABS: Anion Gap 7 mmol/L (8-16); Blood Urea Nitrogen 29 mg/dL (9-20); Calcium 9.3 mg/dL (8.4-10.2); Carbon Dioxide 31 mmol/L (22-30); Chloride 100 mmol/L (98-107); Estimated Glomerular Filt Rate > 60; Glucose 143 mg/dL (65-110); Magnesium 1.7 mg/dL (1.6-2.3); Potassium 3.4 mmol/L (3.4-5.0); Sodium 138 mmol/L (137-145)
== END 2023-03-31 13:43 | disposition home or self-care (01) ==
LOC: ANHLAB 13:43
PROVIDERS: PCP Family Medicine; Visit Provider Family Medicine
DX: E87.6 Hypokalemia (principal)
CPT/HCPCS: 36415; 80048; 83735

== ENCOUNTER 2023-04-14 14:15 | Outpatient (CLI) | payer BC, SELFPAY ==
--- NOTE | ~2023-04-14 | MR_ITS ---
EXAMINATION: MRA neck wo/w con DATE: 04/14/2023 16:29 INDICATION: Visual disturbance TECHNIQUE: Magnetic resonance angiography (MRA) of the neck was performed without and with 19 mL Mult ihance intravenous contrast. Sequences included axial 2D-time of flight T1-weighted FSPGR and coronal T1-weighted FSPGR without and with intravenous contrast. COMPARISON: Carotid CT angiogram dated 05/27/2012 FINDINGS: There is 0% stenosis of the right carotid bulb relative to normal distal artery lumen diameter (NASCE T criteria). There is 0% stenosis of the left carotid bulb relative to normal distal artery lumen di ameter. Right vertebral artery is dominant. There is a typical anatomy to the origins of the great ve ssels which appears to be related to a prior ascending aortic tube graft better appreciated on caroti d CT angiogram dated 05/27/2012. IMPRESSION: 1. 0% stenosis of the right and left carotid bulbs relative to normal distal artery lumen diameter (N ASCET criteria). 2. Dominant right vertebral artery with no contrast enhanced extracranial vertebral artery appreciate d which is unchanged since the prior CT angiogram and may be either developmental or related to a chr onic proximal occlusion. Reviewed, dictated and finalized at location L. IMPRESSION: 1. 0% stenosis of the right and left carotid bulbs relative to normal distal ar edin lumen diameter (NASCET criteria). 2. Dominant right vertebral artery with no contrast enhanced extracranial verte bral artery appreciated which is unchanged since the prior CT angiogram and may be either developmental or related to a chronic proximal occlusion.
--- NOTE | ~2023-04-14 | MR_ITS ---
EXAMINATION: MR brain/brain stem wo/w con DATE: 04/14/2023 16:29 INDICATION: Visual disturbance. TECHNIQUE: Magnetic resonance imaging (MRI) of the brain and brainstem was performed without and with 19 mL Multihance intravenous contrast. Sequences included sagittal and axial T1-weighted SE, axial d iffusion-weighted FS SE, axial 3D SWAN, axial T2-weighted FLAIR, and axial T2-weighted FSE. Postcontr ast axial and coronal T1-weighted SE was obtained. Apparent diffusion coefficient (ADC) maps were cre ated. COMPARISON: None. FINDINGS: There are no areas of restricted diffusion to suggest acute infarction. Small focus of cortical encep halomalacia along the right precentral gyrus consistent with likely chronic infarct. No intracranial hemorrhage or abnormal intracranial mass lesion. There are no intraparenchymal signal abnormalities s een on the other pulse sequences. The ventricles are symmetric and normal in size. There are no abnor mal extra-axial fluid collections. Flow voids are seen in the cerebral arteries on the T2-weighted se quences consistent with their expected patency. Mucosal thickening in the bilateral frontal, ethmoid and maxillary sinuses. Visualized orbits and soft tissues are unremarkable. There are no areas of abn ormal enhancement on the post contrast images. IMPRESSION: 1. No acute intracranial process. 2. 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 Reviewed, dictated and finalized at location L.
--- NOTE | ~2023-04-14 | MR_ITS ---
EXAMINATION: MRA brain wo con DATE: 04/14/2023 16:29 INDICATION: Visual disturbance TECHNIQUE: Magnetic resonance angiography (MRA) of the brain was performed without intravenous contrast by the 3 D [id number] technique. COMPARISON: None. FINDINGS: There is normal flow related signal seen within the vertebral, basilar and internal carotid arteries. Right vertebral artery is dominant. There is no proximal stenosis. There are no aneurysms identifie d. Both A1 and P1 segments are patent. There is also a patent anterior communicating artery. Flow in the cerebral arteries is symmetric. IMPRESSION: 1. Normal brain MR angiogram. Reviewed, dictated and finalized at location L.
== END 2023-04-14 14:16 | disposition home or self-care (01) ==
PROVIDERS: PCP Family Medicine; Visit Provider Internal Medicine Cardiovascular Disease
DX: H53.9 Unspecified visual disturbance (principal); R42 Dizziness and giddiness
CPT/HCPCS: 70544; 70549; 70553; A9577

== ENCOUNTER 2023-07-06 08:31 | Outpatient (CLI) | payer BC, SELFPAY ==
[2023-07-06 09:34] LABS: Alanine Aminotransferase 39 U/L (6-50); Albumin Level 4.5 g/dL (3.5-5.1); Alkaline Phosphatase 65 U/L (38-126); Anion Gap 6 mmol/L (8-16); Aspartate Amino Transferase 47 U/L (17-59); Bilirubin,Total 0.6 mg/dL (0.2-1.3); Blood Urea Nitrogen 25 mg/dL (9-20); Calcium 9.4 mg/dL (8.4-10.2); Carbon Dioxide 32 mmol/L (22-30); Chloride 102 mmol/L (98-107); Estimated Glomerular Filt Rate 48; Glucose 95 mg/dL (65-110); Potassium 4.2 mmol/L (3.4-5.0); Sodium 140 mmol/L (137-145); Uric Acid 6.9 mg/dL (3.5-8.5)
== END 2023-07-06 08:32 | disposition home or self-care (01) ==
LOC: ANHLAB 08:33
PROVIDERS: PCP Family Medicine; Visit Provider Podiatrist Foot & Ankle Surgery
DX: M10.079 Idiopathic gout, unspecified ankle and foot (principal)
CPT/HCPCS: 36415; 80053; 84550

== ENCOUNTER 2023-11-04 10:35 | Outpatient (CLI) | payer BC, SELFPAY ==
[2023-11-04 11:26] LABS: Alanine Aminotransferase 31 U/L (6-50); Albumin Level 4.2 g/dL (3.5-5.1); Alkaline Phosphatase 62 U/L (38-126); Anion Gap 5 mmol/L (8-16); Aspartate Amino Transferase 37 U/L (17-59); Bilirubin,Total 0.4 mg/dL (0.2-1.3); Blood Urea Nitrogen 21 mg/dL (9-20); Calcium 9.1 mg/dL (8.4-10.2); Carbon Dioxide 28 mmol/L (22-30); Chloride 105 mmol/L (98-107); Estimated Glomerular Filt Rate > 60; Glucose 89 mg/dL (65-110); Potassium 3.9 mmol/L (3.4-5.0); Sodium 138 mmol/L (137-145); Uric Acid 5.7 mg/dL (3.5-8.5)
== END 2023-11-04 10:36 | disposition home or self-care (01) ==
LOC: ANHLAB 10:37
PROVIDERS: PCP Family Medicine; Visit Provider Podiatrist Foot & Ankle Surgery
DX: M10.9 Gout, unspecified (principal)
CPT/HCPCS: 36415; 80053; 84550

== ENCOUNTER 2023-11-17 10:45 | Emergency (ER) | payer BC, SELFPAY ==
--- NOTE | ~2023-11-17 | XR_ITS ---
EXAMINATION: XR chest 2V DATE: 11/17/2023 11:18 INDICATION: Cough and fever TECHNIQUE: PA and lateral views of the chest are obtained. COMPARISON: 12/19/2016 FINDINGS: The lungs are free of acute opacities. There is chronic scarring at the left costophrenic a ngle. No pleural effusion or pneumothorax. Cardiomegaly is noted. There are changes of cardiac valve replacement. Surgical clips project over the right upper outer hemithorax and in the left upper lung zone. Calcified mediastinal and hilar lymph nodes are consistent with old granulomatous disease. Ther e is mild thoracic spondylosis. IMPRESSION: 1. No acute cardiopulmonary abnormality. Reviewed, dictated and finalized at location L. ILE TRACKING TECHNICIAN
[2023-11-17 10:55] VITALS: BP 97/69; PULSE 89; RESP 16; TEMP 36.4; O2SAT 97
[2023-11-17 10:57] VITALS: BP 97/69; PULSE 89; RESP 16; TEMP 36.4; O2SAT 97
--- NOTE | 2023-11-17 11:00 | ED.URI ---
HPI - URI/Sore Throat General Chief Complaint: Nausea/Vomiting/Diarrhea Stated Complaint: Fever/Bodyaches/Diarrhea Source: patient and RN notes reviewed Mode of arrival: ambulatory Limitations: no limitations History of Present Illness HPI Narrative: Patient is a 58-year-old male who presents to the [facility] with complaints of cough, congestion, and diarrhea for the past week. Patient reports a frequent productive cough. He denies chest pain or shortness of breath. Patient also endorses generalized body aches, fever, and chills. He has also had some intermittent wheezing. Patient states that he has been diagnosed with COPD and asthma in the past. He denies abdominal pain, nausea, or vomiting. His respirations are unlabored at this time. Related Data Home Medications Medication Instructions Recorded Confirmed calcium carb-vit H1-aqogjpemx-pkqp 1 tablet PO DAILY 08/19/19 11/17/23 333 mg-200 unit-133 mg-5 mg tablet calcium carbonate 600 mg calcium 600 mg PO DAILY 08/19/19 11/17/23 (1,500 mg) tablet (Calcium) chlorthalidone 25 mg tablet 25 mg PO DAILY 08/19/19 11/17/23 cyanocobalamin (vitamin B-12) 1,000 mcg PO DAILY 08/19/19 11/17/23 1,000 mcg capsule lisinopril 40 mg tablet 40 mg PO DAILY 08/19/19 11/17/23 magnesium 250 mg tablet 500 mg PO DAILY 08/19/19 11/17/23 melatonin 5 mg capsule See Rx Instructions .Route 08/19/19 11/17/23 .COMPLEX PRN Sleep pyridoxine (vitamin B6) 200 mg 200 mg PO DAILY 08/19/19 11/17/23 tablet cholecalciferol (vitamin D3) 50 2,000 unit PO DAILY 01/04/20 11/17/23 mcg (2,000 unit) tablet warfarin 5 mg tablet 5 mg PO DAILY 05/06/21 11/17/23 budesonide 160 mcg-glycopyr 9 2 inh inhalation BID 01/14/23 11/17/23 mcg-formot 4.8 mcg/actuation HFA inhaler (Breztri Aerosphere) febuxostat 80 mg tablet (Uloric) 80 mg PO DAILY 04/03/23 11/17/23 labetalol 300 mg tablet 150 mg PO Q12H 07/29/23 11/17/23 diltiazem HCl 120 mg mg PO 11/17/23 11/17/23 capsule,extended release 24 hr, controlled Allergies Allergy/AdvReac Type Severity Reaction Status Date / Time No Known Allergies Allergy Verified 11/17/23 10:51 Review of Systems Review of Systems: CONSTITUTIONAL: Reports fever, chills, or sweats. EYES: Denies visual changes, redness, or discharge. ENT: Denies otalgia and sore throat. Reports nasal congestion. CARDIOVASCULAR: Denies chest pain, palpitations, or edema. RESPIRATORY: Reports cough but denies dyspnea. GASTROINTESTINAL: Denies abdominal pain, nausea, vomiting, but reports diarrhea. GENITOURINARY: Denies dysuria or hematuria. SKIN: Denies rash or itching. MUSCULOSKELETAL: Denies back pain, joint pain, but reports myalgia. NEUROLOGIC: Denies headache, numbness, or weakness. Pertinent positives per HPI. [facility] Past Medical History Medical History Abdominal aortic aneurysm Arthritis of left glenohumeral joint BMI 28.0-28.9,adult BMI 29.0-29.9,adult Cellulitis of arm, right Cellulitis of right elbow Chronic anticoagulation Chronic anxiety Chronic depression Chronic kidney disease, stage 2, mildly decreased GFR Renal function normal with BUN 23 and creatinine 1.04 with GFR 79 on 12/09/2021. Chronic pain of both ankles Uric acid level elevated at 10.7 on 03/23/2023. Uric acid 6.9 on 07/06/2023. Chronic pain of both feet X-ray of feet and ankles on 06/27/2022 revealed diffuse osteoarthritis with some possible bony cyst or osteonecrosis. Ortho referral. Chronic pain of left knee Mild osteoarthritis on x-ray 01/28/2022. Chronic pain of right knee Mild osteoarthritis on x-ray 01/28/2022. Chronic right shoulder pain (~08/2021) right shoulder pain with impingement. X-ray of the right shoulder on 12/23/2021 reveals severe degenerative changes at the AC joint and the glenohumeral joint. COPD (chronic obstructive pulmonary disease) PFT on 05/07/2023 with mild to moderate obstructive defect with reversibility.
[2023-11-17] MEDS: methylPREDNISolone SOD SUCC 125 MG VIAL IM (11:22)
[2023-11-17] MEDS: ALBUTEROL SULFATE NEB 2.5 MG/3 ML INH INHALATION (11:22)
[2023-11-17 11:30] VITALS: PULSE 87; RESP 17; O2SAT 95
[2023-11-17 11:42] VITALS: PULSE 88; RESP 19; O2SAT 97
[2023-11-17 11:58] VITALS: BP 118/82; PULSE 86; RESP 19; O2SAT 97
== END 2023-11-17 11:58 | disposition home or self-care (01) ==
PROVIDERS: Emergency Provider Nurse Practitioner; PCP Family Medicine
DX: J10.1 Influenza due to other identified influenza virus with other respiratory manifestations (principal); Z20.822 Contact with and (suspected) exposure to COVID-19; I12.9 Hypertensive chronic kidney disease with stage 1 through stage 4 chronic kidney disease, or unspecified chronic kidney disease; N18.2 Chronic kidney disease, stage 2 (mild); F17.220 Nicotine dependence, chewing tobacco, uncomplicated; J44.9 Chronic obstructive pulmonary disease, unspecified; M15.9 Polyosteoarthritis, unspecified; E53.8 Deficiency of other specified B group vitamins; Z79.01 Long term (current) use of anticoagulants
CPT/HCPCS: 71046; 87426; 87804; 94640; 96372; 99213; G0463; J2930

== ENCOUNTER 2024-01-17 11:20 | Emergency (ER) | payer BC, SELFPAY ==
--- NOTE | 2024-01-17 11:23 | ED.URI ---
HPI - URI/Sore Throat General Chief Complaint: Upper Respiratory Infection Stated Complaint: EYE REDNESS/SWOLLEN GLANDS/COUGH Time Seen by Provider: 01/17/24 11:44 Source: patient and RN notes reviewed Mode of arrival: ambulatory Limitations: no limitations History of Present Illness HPI Narrative: 4-year-old male presents with concern for swollen glands, sore throat, nasal congestion, rhinorrhea, ear pain, left eye redness. Reports decreased energy. Reports symptoms started 3 days ago. He reports he has taken cynq-vqt-kjsnian medications with little relief. MD elicited complaint: sore throat and nasal congestion Related Data Home Medications Medication Instructions Recorded Confirmed calcium carb-vit D3-iriafkjrz-zurz 1 tablet PO DAILY 08/19/19 01/17/24 333 mg-200 unit-133 mg-5 mg tablet calcium carbonate (Calcium 600) 600 mg PO DAILY 08/19/19 01/17/24 chlorthalidone 25 mg tablet 25 mg PO DAILY 08/19/19 01/17/24 cyanocobalamin (vitamin B-12) 1,000 mcg PO DAILY 08/19/19 01/17/24 1,000 mcg capsule lisinopril 40 mg tablet 40 mg PO DAILY 08/19/19 01/17/24 magnesium 250 mg tablet 500 mg PO DAILY 08/19/19 01/17/24 melatonin 5 mg capsule See Rx Instructions .Route 08/19/19 01/17/24 .COMPLEX PRN Sleep pyridoxine (vitamin B6) 200 mg 200 mg PO DAILY 08/19/19 01/17/24 tablet cholecalciferol (vitamin D3) 50 2,000 unit PO DAILY 01/04/20 01/17/24 mcg (2,000 unit) tablet warfarin 5 mg tablet 5 mg PO DAILY 05/06/21 01/17/24 budesonide 160 mcg-glycopyr 9 2 inh inhalation BID 01/14/23 01/17/24 mcg-formot 4.8 mcg/actuation HFA inhaler (Breztri Aerosphere) febuxostat 80 mg tablet (Uloric) 80 mg PO DAILY 04/03/23 01/17/24 labetalol 300 mg tablet 150 mg PO Q12H 07/29/23 01/17/24 diltiazem HCl 120 mg 120 mg PO DAILY 11/17/23 01/17/24 capsule,extended release 24 hr, controlled Allergies Allergy/AdvReac Type Severity Reaction Status Date / Time No Known Allergies Allergy Verified 01/17/24 11:33 Review of Systems Review of Systems: CONSTITUTIONAL: Reports malaise, fatigue. Denies chills, sweats, or fever. EYES: Denies visual changes, redness, or discharge. ENT: Reports rhinorrhea, congestion, sinus pain, otalgia and sore throat. CARDIOVASCULAR: Denies chest pain, palpitations, or edema. RESPIRATORY: Reports cough. Denies dyspnea. GASTROINTESTINAL: Denies abdominal pain, nausea, vomiting, diarrhea SKIN: Denies rash or itching. MUSCULOSKELETAL: Denies myalgia. NEUROLOGIC: Denies headache. All systems reviewed & are unremarkable except as noted in HPI and below PMFSH Past Medical History Medical History Abdominal aortic aneurysm Arthritis of left glenohumeral joint BMI 28.0-28.9,adult BMI 29.0-29.9,adult Cellulitis of arm, right Cellulitis of right elbow Chronic anticoagulation Chronic anxiety Chronic depression Chronic kidney disease, stage 2, mildly decreased GFR Renal function normal with BUN 23 and creatinine 1.04 with GFR 79 on 12/09/2021. Chronic pain of both ankles Uric acid level elevated at 10.7 on 03/23/2023. Uric acid 6.9 on 07/06/2023. Chronic pain of both feet X-ray of feet and ankles on 06/27/2022 revealed diffuse osteoarthritis with some possible bony cyst or osteonecrosis. Ortho referral. Chronic pain of left knee Mild osteoarthritis on x-ray 01/28/2022. Chronic pain of right knee Mild osteoarthritis on x-ray 01/28/2022. Chronic right shoulder pain (~08/2021) right shoulder pain with impingement. X-ray of the right shoulder on 12/23/2021 reveals severe degenerative changes at the AC joint and the glenohumeral joint. COPD (chronic obstructive pulmonary disease) PFT on 05/07/2023 with mild to moderate obstructive defect with reversibility. Degenerative joint disease of knee Descending aortic aneurysm Hyperlipidemia LDL goal <100 Total cholesterol 198, triglycerides 114, HDL 45, LDL 131 on 12/09/2021.Total cholesterol 201, trigly
[2024-01-17 11:34] VITALS: BP 99/62; PULSE 73; RESP 16; TEMP 36.6; O2SAT 98
== END 2024-01-17 12:02 | disposition home or self-care (01) ==
PROVIDERS: Emergency Provider Nurse Practitioner; PCP Family Medicine
DX: H66.90 Otitis media, unspecified, unspecified ear (principal); Z20.822 Contact with and (suspected) exposure to COVID-19; N18.2 Chronic kidney disease, stage 2 (mild); J44.9 Chronic obstructive pulmonary disease, unspecified; E78.5 Hyperlipidemia, unspecified; E66.3 Overweight; Z68.28 Body mass index [BMI] 28.0-28.9, adult; E53.8 Deficiency of other specified B group vitamins; M19.012 Primary osteoarthritis, left shoulder; M17.0 Bilateral primary osteoarthritis of knee; M19.072 Primary osteoarthritis, left ankle and foot; M19.071 Primary osteoarthritis, right ankle and foot; F41.9 Anxiety disorder, unspecified; F32.A Depression, unspecified; F17.220 Nicotine dependence, chewing tobacco, uncomplicated; Z95.2 Presence of prosthetic heart valve; Z79.01 Long term (current) use of anticoagulants
CPT/HCPCS: 87081; 87426; 87804; 87880; 99213; G0463

== ENCOUNTER 2024-02-01 09:22 | Outpatient (CLI) | payer BC, SELFPAY ==
[2024-02-01 09:43] LABS: Basophils Percent Auto 0.4 % (0.2-1.2); Eosinophils Absolute Auto 0.3 K/mm3 (0-0.3); Eosinophils Percent Auto 3.3 % (0-4.4); Hematocrit 36.3 % (42.0-52.0); Hemoglobin 12.3 g/dL (14.0-18.0); Immature Granulocyte Absolute 0.03 K/mm3 (0.00-0.031); Immature Granulocyte Percent A 0.4 % (0-0.5); Lymphocytes Absolute Auto 1.52 K/mm3 (0.9-3.2); Lymphocytes Percent Auto 20.3 % (18.3-44.2); Mean Corpuscular HGB Conc 33.9 g/dl (32-36); Mean Corpuscular Hemoglobin 30.8 pg (26-34); Mean Platelet Volume 10.1 fl (7.4-10.4); Monocytes Absolute Auto 0.8 K/mm3 (0.1-0.6); Monocytes Percent Auto 10.8 % (2.6-8.5); Neutrophils Absolute Auto 4.9 K/mm3 (1.3-6.7); Neutrophils Percent Auto 64.8 % (45.5-73.1); Platelet Count Result 304 k/mm3 (150-375); Red Blood Count 3.99 M/mm3 (4.6-6.20); Red Cell Distribution Width 13.9 % (11.5-14.5); White Blood Count 7.5 K/mm3 (4.5-10.0)
[2024-02-01 10:03] LABS: Alanine Aminotransferase 32 U/L (6-50); Albumin Level 4.4 g/dL (3.5-5.1); Alkaline Phosphatase 69 U/L (38-126); Anion Gap 6 mmol/L (4-12); Aspartate Amino Transferase 40 U/L (17-59); Bilirubin,Total 0.7 mg/dL (0.2-1.3); Blood Urea Nitrogen 25 mg/dL (9-20); Calcium 9.1 mg/dL (8.4-10.2); Carbon Dioxide 29 mmol/L (22-30); Chloride 102 mmol/L (98-107); Cholesterol 198 mg/dL (0-200); Estimated Glomerular Filt Rate 52; Glucose 100 mg/dL (65-110); HDL Direct 34 mg/dL; Potassium 3.3 mmol/L (3.4-5.0); Sodium 137 mmol/L (137-145); Triglycerides 153 mg/dL (<150)
[2024-02-01 10:13] LABS: Iron 100 ug/dL (49-181)
[2024-02-01 10:15] LABS: LDL Cholesterol Direct 117 mg/dL
[2024-02-01 10:25] LABS: Percent Iron Saturation 33 % (20-50)
[2024-02-01 10:34] LABS: Prostate Specific Antigen 1.8 ng/mL (< OR = 4.0); Thyroid Stimulating Hormone 0.956 uIU/mL (0.465-4.680)
[2024-02-01 11:09] LABS: Folic Acid 10.3 ng/mL (2.76->20)
== END 2024-02-01 09:23 | disposition home or self-care (01) ==
LOC: ANHLAB 09:24
PROVIDERS: PCP Family Medicine; Visit Provider Family Medicine
DX: E78.2 Mixed hyperlipidemia (principal); Z12.5 Encounter for screening for malignant neoplasm of prostate; D64.9 Anemia, unspecified
CPT/HCPCS: 36415; 80053; 80061; 82607; 82728; 82746; 83540; 83550; 84153; 84443; 85025; G0103

== ENCOUNTER 2024-04-04 11:47 | Outpatient (CLI) | payer OTHER, SELFPAY ==
[2024-04-04 12:31] LABS: Basophils Percent Auto 0.5 % (0.2-1.2); Eosinophils Absolute Auto 0.5 K/mm3 (0-0.3); Eosinophils Percent Auto 8.2 % (0-4.4); Hematocrit 40.1 % (42.0-52.0); Hemoglobin 13.5 g/dL (14.0-18.0); Immature Granulocyte Absolute 0.01 K/mm3 (0.00-0.031); Immature Granulocyte Percent A 0.2 % (0-0.5); Lymphocytes Absolute Auto 1.47 K/mm3 (0.9-3.2); Lymphocytes Percent Auto 22.8 % (18.3-44.2); Mean Corpuscular HGB Conc 33.7 g/dl (32-36); Mean Corpuscular Hemoglobin 31.4 pg (26-34); Mean Corpuscular Volume 93.3 fl (80-100); Mean Platelet Volume 11.4 fl (7.4-10.4); Monocytes Absolute Auto 0.8 K/mm3 (0.1-0.6); Monocytes Percent Auto 11.6 % (2.6-8.5); Neutrophils Absolute Auto 3.7 K/mm3 (1.3-6.7); Neutrophils Percent Auto 56.7 % (45.5-73.1); Platelet Count Result 209 k/mm3 (150-375); Red Cell Distribution Width 13.8 % (11.5-14.5); White Blood Count 6.4 K/mm3 (4.5-10.0)
[2024-04-04 12:51] LABS: Anion Gap 9 mmol/L (4-12); Blood Urea Nitrogen 27 mg/dL (9-20); Calcium 9.3 mg/dL (8.4-10.2); Carbon Dioxide 31 mmol/L (22-30); Chloride 101 mmol/L (98-107); Estimated Glomerular Filt Rate 41; Glucose 101 mg/dL (65-110); Magnesium 1.9 mg/dL (1.6-2.3); Potassium 4.2 mmol/L (3.4-5.0); Sodium 141 mmol/L (137-145)
== END 2024-04-04 11:48 | disposition home or self-care (01) ==
LOC: ANHLAB 11:50
PROVIDERS: PCP Family Medicine; Visit Provider Family Medicine
DX: E87.6 Hypokalemia (principal); D64.9 Anemia, unspecified
CPT/HCPCS: 36415; 80048; 83735; 85025

== ENCOUNTER 2024-08-23 11:46 | Outpatient (CLI) | payer OTHER, SELFPAY ==
[2024-08-23 12:19] LABS: Basophils Absolute Auto 0.1 K/mm3 (0.0-0.1); Basophils Percent Auto 0.6 % (0.2-1.2); Eosinophils Absolute Auto 0.6 K/mm3 (0-0.3); Hematocrit 40.6 % (42.0-52.0); Hemoglobin 13.5 g/dL (14.0-18.0); Immature Granulocyte Absolute 0.02 K/mm3 (0.00-0.031); Immature Granulocyte Percent A 0.3 % (0-0.5); Lymphocytes Absolute Auto 2.18 K/mm3 (0.9-3.2); Lymphocytes Percent Auto 28.2 % (18.3-44.2); Mean Corpuscular HGB Conc 33.3 g/dl (32-36); Mean Corpuscular Volume 93.3 fl (80-100); Mean Platelet Volume 11.6 fl (7.4-10.4); Monocytes Absolute Auto 0.7 K/mm3 (0.1-0.6); Monocytes Percent Auto 9.6 % (2.6-8.5); Neutrophils Absolute Auto 4.1 K/mm3 (1.3-6.7); Neutrophils Percent Auto 53.3 % (45.5-73.1); Platelet Count Result 205 k/mm3 (150-375); Red Blood Count 4.35 M/mm3 (4.6-6.20); Red Cell Distribution Width 12.7 % (11.5-14.5); White Blood Count 7.7 K/mm3 (4.5-10.0)
[2024-08-23 12:28] LABS: Alanine Aminotransferase 23 U/L (6-50); Albumin Level 4.4 g/dL (3.5-5.1); Alkaline Phosphatase 59 U/L (38-126); Anion Gap 3 mmol/L (4-12); Aspartate Amino Transferase 33 U/L (17-59); Bilirubin,Total 0.7 mg/dL (0.2-1.3); Blood Urea Nitrogen 21 mg/dL (9-20); Calcium 8.9 mg/dL (8.4-10.2); Carbon Dioxide 30 mmol/L (22-30); Chloride 105 mmol/L (98-107); Cholesterol 211 mg/dL (0-200); Estimated Glomerular Filt Rate > 60; Glucose 94 mg/dL (65-110); HDL Direct 38 mg/dL; Potassium 3.7 mmol/L (3.4-5.0); Sodium 138 mmol/L (137-145); Triglycerides 147 mg/dL (<150)
[2024-08-23 12:39] LABS: LDL Cholesterol Direct 118 mg/dL
[2024-08-23 12:53] LABS: Iron 114 ug/dL (49-181)
[2024-08-23 13:02] LABS: Percent Iron Saturation 34 % (20-50)
== END 2024-08-23 11:47 | disposition home or self-care (01) ==
PROVIDERS: PCP Family Medicine; Visit Provider Family Medicine
DX: E78.2 Mixed hyperlipidemia (principal); D64.9 Anemia, unspecified
CPT/HCPCS: 36415; 80053; 80061; 82728; 83540; 83550; 85025

== ENCOUNTER 2024-11-30 10:30 | Outpatient (CLI) | payer OTHER, SELFPAY ==
[2024-11-30 11:46] LABS: Alanine Aminotransferase 32 U/L (6-50); Albumin Level 4.5 g/dL (3.5-5.1); Alkaline Phosphatase 63 U/L (38-126); Anion Gap 8 mmol/L (4-12); Aspartate Amino Transferase 38 U/L (17-59); Bilirubin,Total 0.7 mg/dL (0.2-1.3); Blood Urea Nitrogen 24 mg/dL (9-20); Calcium 9.1 mg/dL (8.4-10.2); Carbon Dioxide 29 mmol/L (22-30); Chloride 101 mmol/L (98-107); Estimated Glomerular Filt Rate > 60; Glucose 93 mg/dL (65-110); Potassium 3.5 mmol/L (3.4-5.0); Sodium 138 mmol/L (137-145); Uric Acid 8.9 mg/dL (3.5-8.5)
--- OUTSIDE RECORDS SUMMARY | 2024-11-30 12:02 | XMS_ITS | Encounter Summary ---
Author Organization [facility] Healthcare Address [address] [place] [address] Care Team Providers Care Benefits Advisor Name Role Phone Gurvinder Doan MD Primary Care Provider [phone] Jaime Bobby MD Unavailable [phone] Doreen Hyatt MD Unavailable [phone] Encounter Details Date Type Department Care Team (Late st Contact Info) Description 01/08/2024 Orders Only [facility] [address] [place] [address] Scanning, Provider Social History Tobacco Use Types Packs/Day Years Used Date Smoking Tobacco: Never Smokeless Tobacco: Current Chew Alcohol Use Standard Drinks/Week Comments Yes 0 (1 standard drink = 0.6 oz pur e alcohol) occassionally Personal Safety Answer Date Recorded Have you ever been in or are you currently in a harmful physical or emotional relationship or is someone making you feel afraid or unsafe? 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 Gender Identity Not on file Sexual Orientation Not on file documented as of this encounter Plan of Treatment Not on file documented as of this encounter Procedures Procedure Name Priority Date/Time Associated Diagnosis Comments SCAN - LABS 01/08/2024 documented in this encounter Results * SCAN - LABS (01/08/2024) us Provider Scanning Final Result documented in this encounter Visit Diagnoses Not on filedocumented in this encounter Care Teams Benefits Advisor Relationship Specialty Start Date End Date Gurvinder Doan MD [address] [address] PCP - General Family Medicine 01/16/20 Jaime Bobby MD [address] [facility] [address] [place] [address] Consulting Physician Orthopedic Surgery 07/05/20 Doreen Hyatt MD [address] [facility] [address], [place] [address] Consulting Physician Cardiology 10/07/24 documented as of this encounter
--- OUTSIDE RECORDS SUMMARY | 2024-11-30 12:02 | XMS_ITS | Referral Summary ---
Author Organization [facility] Address [address] [place] [address] Care Team Providers Care Pharmacy Sales Assistant Name Role Phone Gurvinder Doan MD Primary Care Provider [phone] Jaime Bobby MD Unavailable Doreen Hyatt MD Unavailable [phone] Encounters Date Type Department Care Team Description 10/27/[address] [facility] Medical [facility] Cardiology [address] [facility] [address] [place] [id number] Arlyn Goins, bologna maker anticoagulation (Primary Dx); H/O mechanical aortic valve replacement 09/26/[address] [facility] Medical [facility] Cardiology [address] [facility] [address] [place] [address] Doreen Hyatt MD 09/26/2024 9:15 AM CENTRAL STATION OPERATOR Office Visit [facility] Cardiology [address] [facility] [address] [place] [address] Doreen Hyatt MD Mixed hyperlipidemia (Primary Dx) from Last 3 Months Allergies No known active allergies Medications CALCIUM CARBONATE (CALCIUM 600 ORAL) Take 600 mg by mouth. Active magnesium oxide 500 mg capsule Take 500 mg by mouth nightly Active melatonin 10 mg tablet Take 1 tablet (10 mg total) by mouth nightly Active ascorbic acid (VITAMIN C) 100 mg tablet Take 2 tablets (200 mg total) by mouth daily Active celecoxib (CeleBREX) 200 mg capsule Take 1 capsule (200 mg total) by mouth daily as needed for pain 90 capsule 1 0 Active cholecalciferol (VITAMIN D-3) 25 mcg (1,000 unit) tablet Take 1 tablet (1,000 Units total) by mouth daily Active citalopram (CeleXA) 20 mg tablet Take 1 tablet (20 mg total) by mouth nightly Active cyanocobalamin (Vitamin B-12) 1,000 mcg tabletIndications :Prevention of Vitamin B12 Deficiency Take 1 tablet (1,000 mcg total) by mouth daily Active pyridoxine, vitamin B6, 200 mg tablet extended release Take 400 mg by mouth daily Active buPROPion XL (WELLBUTRIN XL) 300 mg 24 hr tablet TAKE 1 TABLET BY MOUTH EVERY DAY 90 tablet 2 3 Active albuterol HFA (PROVENTIL HFA,VENTOLIN HFA,PROAIR HFA) 90 mcg/actuation inhaler Inhale 2 puffs every 4 (four) hours as needed 3 Active febuxostat (ULORIC) 80 mg tablet Take 1 tablet (80 mg total) by mouth daily 3 Active labetaloL (NORMODYNE,TRANDA TE) 300 mg tabletIndications :H/O ascending aorta repair,Chronic thoracic aortic dissection (HCC),Benign essential HTN TAKE 1/2 TABLET TWICE A DAY BY MOUTH 90 tablet 1 4 Active lisinopriL (PRINIVIL,ZESTRIL ) 40 mg tablet Take 1 tablet (40 mg total) by mouth nightly 90 tablet 3 4 Active hydrALAZINE (APRESOLINE) 25 mg tabletIndications :Essential hypertension TAKE 1 TABLET BY MOUTH TWICE A DAY 180 tablet 2 4 Active chlorthalidone (HYGROTON) 25 mg tablet TAKE 1 TABLET BY MOUTH EVERY DAY 90 tablet 3 4 Active warfarin (COUMADIN) 2 mg tablet TAKE 7 MG (3 AND 1/2 TABLETS) BY MOUTH 5 DAYS A WEEK OR DIRECTED BY PHYSICIAN. 22 tablet 1 4 Active tadalafiL (CIALIS) 5 mg tablet Take 1 tablet (5 mg total) by mouth daily 4 Active warfarin (COUMADIN) 5 mg tablet TAKE 7MG 5 DAYS A WEEK AND 10MG 2 DAYS A WEEK OR DIRECTED BY PHYSICIAN. 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 Precordial pain 03/03/2022 Dizziness 07/15/2021 Nontraumatic complete tear of left rotator cuff 06/05/2020 Overview (06/05/2020): Added automatically from request for surgery [id number] MORLEY (dyspnea on exertion) 01/16/2020 Sleep disorder 01/16/2020 Chronic fatigue 06/28/2018 Mixed hyperlipidemia 06/28/2018 Essential hypertension 05/08/2017 Assessment & Plan (05/08/2017 5:18 PM CDT): Hypertension is reasonable but could be better PVC (premature ventricular contraction) 05/08/20 17 Aortic valve disorders [I35.9] 02/24/2017 USP (current) use of anticoagulants [Z79.0 1] 02/24/2017 H/O mechanical aortic valve replacement 07/16/20 15 Overview (05/08/2017): H/O mechanical aortic valve replacement, 23 mm Carbo[employer] valve with composite graft, for severe AI 2010 Dr. Victor M Lorenzana t time of repair of acute asc. Aortic dissection. Assessment & Plan (05/08/2017 5:13 PM CDT): September 2016 echo showed normal a mechanical aortic valve prosthesis EF 53%, lower limit normal H/O ascending aorta repair 07/16/2015 Overview (05/08/2017): H/O r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 Victor M Lorenzana, 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 Overview (12/19/2016): Coronary artery anomaly Assessment & Plan (05/08/2017 5:17 PM CDT): Single coronary artery supplies entire cardiac system Chronic anticoagulation 07/16/2015 Overview (12/19/2016): Chronic anticoagulation Assessment & Plan (05/08/2017 5:15 PM CDT): Click 04/20/2017 INR 2.9, therapeutic Not always compliant with INR follow-up Chronic thoracic aortic dissection 07/08/2011 Overview (05/08/2017): Acute dissection, s/p repair Dr Lorenzana at [facility] Assessment & Plan (05/08/2017 5:18 PM CDT): No further back pain Has CT scheduled next year for evaluation, by Dr. Lorenzana Strive toward great blood pressure control Arthritis Overview (07/01/2020): Arthritis; Comments: BEASLEY 01/30/2017 - Depression Overview (07/01/2020): Depression Chronic obstructive pulmonary disease Overview (07/01/2020): COPD Resolved Problems Problem Noted Date Diagnosed Date Resolved Date Vision changes 06/28/2018 03/17/2023 Aortic valve disorders [I35.9] 04/20/2017 05/08/2017 Ruptured aneurysm of thoracoabdominal aorta 01/30/2017 05/08/2017 Overview (02/06/2017): Ruptured aneurysm of thoracoabdominal aorta Social History Tobacco Use Types Packs/Day Years Used Date Smoking Tobacco: Never Smokeless Tobacco: Former Chew Alcohol Use Standard Drinks/Week Comments Yes [...] on file 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 Gender Identity Not on file Sexual Orientation Not on file Last Filed Vital Signs Vital Sign Reading Time Taken Comments Blood Pressure 110/66 09/26/2024 9:12 AM CENTRAL STATION OPERATOR Pulse 69 09/26/2024 9:12 AM CENTRAL STATION OPERATOR Temperature 36.3 C (97.4 F) 02/18/2023 12:29 PM CDT Respiratory Rate 28 02/18/2023 4:25 PM CDT Oxygen Saturation 95% 09/26/2024 9:12 AM CENTRAL STATION OPERATOR Inhaled Oxygen Concentration - - Weight 96.2 kg (212 lb) 09/26/2024 9:12 AM CENTRAL STATION OPERATOR Height 182.9 cm (6') 09/26/2024 9:12 AM CENTRAL STATION OPERATOR Body Mass Index 28.75 09/26/2024 9:12 AM CENTRAL STATION OPERATOR Plan of Treatment Not on file Medical Devices Implanted Type Area Alarm Mechanism Adjuster Device Identifier Shelf Expiration Date Model / Serial / Lot [employer] Ar-1927bcft Corkscrew Tigertail 5.5mm 14.7mm Drive Mechanism Vent 2 Square - [id number] Implanted:Qty: 1 on 07/05/2020 by Jaime Bobby MD at [facility] Left: Shoulder [employer] [id number] 01/12/2024 AR-1927B CFT / / [id number] [employer] Ar-1927bcft Corkscrew Tigertail 5.5mm 14.[address] Mechanism Vent 2 Square - [id number] Implanted:Qty: 1 on 07/05/2020 by Jaime Bobby MD at [facility] Left: Shoulder [employer] [id number] 09/13/2023 AR-1927B CFT / / [id number] [employer] Ar-1927bcft Corkscrew Tigertail 5.5mm 14.7[address] Drive Mechanism Vent 2 Square - [id number] Implanted:Qty: 1 on 07/05/2020 by Jaime Bobby MD at [facility] Left: Shoulder [employer] [id number] 04/13/2024 AR-1927B CFT / / [id number] [employer] Ar-2324bcc Swivelock C 4.75mm 19.1mm Closed Eyelet Vent [place] Suture - [id number] Implanted:Qty: 1 on 07/05/2020 by Jaime Bobby MD at [facility] Left: Shoulder [employer] [id number] 03/13/2024 AR-2324B CC / / [id number] [employer] Ar-2324bcc Swivelock C 4.75mm 19.1mm Closed Eyelet Vent [place] Suture - [id number] Implanted:Qty: 1 on 07/05/2020 by Jaime Bobby MD at [facility] Left: Shoulder [employer] [id number] 10/14/2023 AR-2324B CC / / [id number] [employer] Device Vascular Closure Femoral Artery Bioabsorbable Dual Method Vascade 6-7fr Collagen [id number] - S0 - [id number] Implanted:Qty: 1 on 02/18/2023 by Semaj Segura MD at [facility] [employer] 11/17/2024 [id number] / 0 / [id number] [place] Cordis Mynxgrip 5fr Balloon Catheter Integrate Sealant Lock Latex Free [id number] - S0 - [id number] Implanted:Qty: 1 on 02/18/2023 by Semaj Segura MD at [facility] [employer] 11/11/2024 [id number] / [id number] / [id number] Procedures Procedure Name Priority Date/Time Associated Diagnosis Comments PROTIME-INR Routine 10/27/2024 POCT LIPID PANEL Routine 09/26/2024 9:14 AM CENTRAL STATION OPERATOR Mixed hyperlipidemia from Last 3 Months Results * (ABNORMAL) Protime-INR (10/27/2024) INR 2.60(A) 0.90 - 1.10 EXTERNAL LAB Blood Historical Provider LAB BLOOD ORDERABLES Giselle jennifer Result EXTERNAL LAB * POCT lipid panel (09/26/2024 9:14 AM CENTRAL STATION OPERATOR) Cholesterol, POC 197 mg/dL HDL, POC 39 mg/dL Triglycerides, POC 98 mg/dL LDL Cholesterol POC 138 mg/dL Chol/HDL Ratio, POC 3.5 Non-HDL Cholesterol, POC 157 mg/dL Cholesterol Total, POC 197 mg/dL Capillary blood 09/26/2024 9 :14 AM CENTRAL STATION OPERATOR Doreen Hyatt MD POINT OF CARE TEST O RDERABLES Final Result from Last 3 Months Insurance [employer] [place] [employer] [place] [facility] [id number] [facility] Care Teams Pharmacy Sales Assistant Relationship Specialty Start Date End Date Gurvinder Doan MD [address] [facility] [address] [place] [address] PCP - General Family Medicine 01/16/20 Jaime Bobby MD [address] [facility] [address] [place] [address] Consulting Physician Orthopedic Surgery 07/05/20 Doreen Hyatt MD [address] [facility] [address], [place] [address] Consulting Physician Cardiology 10/07/24
--- OUTSIDE RECORDS SUMMARY | 2024-11-30 12:02 | XMS_ITS | Clinical Summary ---
Author Organization [facility] D Address [address] [place] [address] Care Team Providers Care Care Rep Name Role Phone Gurvinder Doan MD Primary Care Provider [phone] Jaime Bobby MD Unavailable [phone] Doreen Hyatt MD Unavailable [phone] Allergies No known active allergies Medications CALCIUM [...] (06/05/2020): Added automatically from request for surgery [id number] MORLEY (dyspnea on exertion) 01/16/2020 Sleep disorder 01/16/2020 Chronic fatigue 06/28/2018 Mixed hyperlipidemia 06/28/2018 Essential hypertension 05/08/2017 Assessment & Plan (05/08/2017 5:18 PM CDT): Hypertension is reasonable but could be better PVC (premature ventricular contraction) 05/08/20 17 Aortic valve disorders [I35.9] 02/24/2017 custodial (current) use of anticoagulants [Z79.0 1] 02/24/2017 H/O mechanical aortic valve replacement 07/16/20 Overview (05/08/2017): H/O mechanical aortic valve replacement, [...] severe aortic insufficiency, Dr. Victor M Lorenzana, [facility] Assessment & Plan (05/08/2017 5:16 PM CDT): [...] Acute dissection, s/p repair Dr Lorenzana at [facility] Assessment & Plan (05/08/2017 5:18 PM [...] Overview (02/06/2017): Ruptured aneurysm of thoracoabdominal aorta Encounters Date Type Department Care Team Description 10/27/2024 Anticoagulation Visit [facility] Card[facility] [address] [place] [address] [place] [phone] Arlyn Goins RN Chronic anticoagulation (Primary Dx); H/O mechanical aortic valve replacement 09/26/2024 9:15 AM PERSONNEL ARBITRATOR Office Visit [facility] Cardiology [address] [place] [address] [address] [place] [phone] Doreen Hyatt MD Mixed hyperlipidemia (Primary Dx) 09/26/2024 Telephone [facility] Card[facility] [address] [place] [address] [address] [place] [phone] Doreen Hyatt MD from Last 3 Months Surgical History Surgery Date Site/Laterality Comments OTHER SURGICAL HISTORY 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 Victor M Lorenzana, [facility] H/O mechanical aortic valve replacement 07/16/2015 H/O mechanical aortic valve replacement, 23 mm [employer] valve with composite graft, for severe AI 2010 Dr. Victor M Lorenzana t time of repair of acute asc. Aortic dissection. Sleep disorder 01/16/2020 Vision changes 06/28/2018 Chronic fatigue 06/28/2018 Chronic anticoagulation 07/16/2015 Chronic anticoagulation Asthma 2022 Sleep disorder 01/16/2020 Family History Medical History Relation Name Comments Hypertension Mother Hypertension; Relation Name Status Comments Father Other Mother Other Social History Tobacco Use Types Packs/Day Years [...] on file Legal Sex Male 10:44 AM PERSONNEL ARBITRATOR Gender Identity Not on file Sexual Orientation Not on file Obstetrics History Last Filed Vital Signs Vital Sign Reading Time Taken Comments Blood Pressure 110/66 09/26/2024 9:12 AM PERSONNEL ARBITRATOR Pulse 69 09/26/2024 9:12 AM PERSONNEL ARBITRATOR Temperature 36.3 C (97.4 F) 02/18/2023 12:29 PM CDT Respiratory Rate 28 02/18/2023 4:25 PM CDT Oxygen Saturation 95% 09/26/2024 9:12 AM PERSONNEL ARBITRATOR Inhaled Oxygen Concentration - - Weight 96.2 kg (212 lb) 09/26/2024 9:12 AM PERSONNEL ARBITRATOR Height 182.9 cm (6') 09/26/2024 9:12 AM PERSONNEL ARBITRATOR Body Mass Index 28.75 09/26/2024 9:12 AM PERSONNEL ARBITRATOR Plan of Treatment Health Maintenance Due Date Last Done Comments Colon Cancer Screening-Colonoscopy 1963 Depression Screening 1963 Hepatitis C Screening 1963 Prostate Cancer Screening-PSA 1963 Hepatitis B Screening 1981 Regular Well Visit/Exam 18-64 1981 Pneumococcal vaccine <65 (1 of 2 - PCV) 1982 Zoster Vaccine (1 of 2) 2013 Influenza Vaccine (#1) 2024 DTaP/Tdap/Td Vaccine (2 - Td or Tdap) 04/12/2030 Medical Devices Implanted Type Area Integration Project Manager Device Identifier Shelf Expiration Date Model / Serial / Lot [employer] Ar-1927bcft Corkscrew Tigertail 5.5mm 14.7mm Drive Mechanism Vent 2 Square - [id number] Implanted:Qty: 1 on 07/05/2020 by Jaime Bobby MD at [facility] Left: Shoulder [employer] [id number] 01/12/2024 AR-1927B CFT / / [id number] [employer] Ar-1927bcft Corkscrew Tigertail 5.5mm 14.7mm Drive Mechanism Vent 2 Square - [id number] Implanted:Qty: 1 on 07/05/2020 by Jaime Bobby MD at [facility] Left: Shoulder [employer] [id number] 09/13/2023 AR-1927B CFT / / [id number] [employer] Ar-1927bcft Corkscrew Tigertail 5.5mm 14.7mm Drive Mechanism Vent 2 Square - [id number] Implanted:Qty: 1 on 07/05/2020 by Jaime Bobby MD at [facility] Left: Shoulder [employer] [id number] 04/13/2024 AR-1927B CFT / / [id number] [employer] Ar-2324bcc Swivelock C 4.75mm 19.1mm Closed Eyelet Vent [place] Suture - [id number] Implanted:Qty: 1 on 07/05/2020 by Jaime Bobby MD at [facility] Left: Shoulder [employer] [id number] 03/13/2024 AR-2324B CC / / [id number] [employer] Ar-2324bcc Swivelock C 4.75mm 19.1mm Closed Eyelet Vent [place] Suture - [id number] Implanted:Qty: 1 on 07/05/2020 by Jaime Bobby MD at [facility] Left: Shoulder [employer] [id number] 10/14/2023 AR-2324B CC / / [id number] [employer] Device Vascular Closure Femoral Artery Bioabsorbable Dual Method Vascade 6-7fr Collagen [id number] - S0 - [id number] Implanted:Qty: 1 on 02/18/2023 by Semaj Segura MD at [facility] [employer] 11/17/2024 [id number] / 0 / [id number] [facility] Cordis Mynxgrip 5fr Balloon Catheter Integrate Sealant Lock Latex Free [id number] - S0 - [id number] Implanted:Qty: 1 on 02/18/2023 by Semaj Segura MD at [facility] Cordis 11/11/2024 [id number] / [id number] / [id number] Procedures Procedure Name Priority Date/Time Associated Diagnosis Comments PROTIME-INR Routine 10/27/2024 POCT LIPID PANEL Routine 09/26/2024 9:14 AM PERSONNEL ARBITRATOR Mixed hyperlipidemia from Last 3 Months Results * (ABNORMAL) Protime-INR (10/27/2024) INR 2.60(A) 0.90 - 1.10 EXTERNAL LAB Blood us Historical Provider LAB BLOOD ORDERABLES Giselle rodriguez Result EXTERNAL LAB * POCT lipid panel (09/26/2024 9:14 AM PERSONNEL ARBITRATOR) Cholesterol, POC 197 mg/dL HDL, POC 39 mg/dL Triglycerides, POC 98 mg/dL LDL Cholesterol POC 138 mg/dL Chol/HDL Ratio, POC 3.5 Non-HDL Cholesterol, POC 157 mg/dL Cholesterol Total, POC 197 mg/dL Capillary blood 09/26/2024 9 :14 AM PERSONNEL ARBITRATOR Doreen Hyatt MD POINT OF CARE TEST O RDERABLES Final Result from Last 3 Months [place] [employer] [employer] [place] ON LICENSE OF [facility] [id number] ON LICENSE OF [facility] [id number] Care Teams Care Rep Relationship Specialty Start Date End Date Gurvinder Doan MD [address] [address] PCP - General Family Medicine 01/16/20 Jaime Bobby MD [address] [facility] [address] [place] [address] Consulting Physician Orthopedic Surgery 07/05/20 Doreen Hyatt MD [address] [facility] [address] [address] Consulting Physician Cardiology 10/07/24
--- OUTSIDE RECORDS SUMMARY | 2024-11-30 12:02 | XMS_ITS | Encounter Summary ---
Author Organization [facility] Healthcare Address [address] [place] [address] Care Team Providers Care Rug Dyer Name Role Phone Gurvinder Doan MD Primary Care Provider [phone] Jaime Bobby MD Unavailable [phone] Doreen Hyatt MD Unavailable [phone] Encounter Details Date Type Department Care Team (Late st Contact Info) Description 11/16/2023 Orders Only [facility] Health Information Management [address] [place] [address] Scanning, Provider Social History Tobacco [...] on file Legal Sex Male 10:44 AM PMO LEAD Gender Identity Not on file Sexual Orientation Not on file documented as of this encounter Plan of Treatment Not on file documented as of this encounter Procedures Procedure Name Priority Date/Time Associated Diagnosis Comments SCAN - LABS 11/16/2023 documented in this encounter Results * SCAN - LABS (11/16/2023) us Provider Scanning Final Result documented in this encounter Visit Diagnoses Not on filedocumented in this encounter Care Teams Rug Dyer Relationship Specialty Start Date End Date Gurvinder Doan MD [address] [address] PCP - General Family Medicine 01/16/20 Jaime Bobby MD [address] [facility] [address] [place] [address] Consulting Physician Orthopedic Surgery 07/05/20 Doreen Hyatt MD [address] [facility] [address] [address] Consulting Physician Cardiology 10/07/24 documented as of this encounter
--- OUTSIDE RECORDS SUMMARY | 2024-11-30 12:03 | XMS_ITS | Encounter Summary ---
Author Organization [facility] Healthcare Address [address] [place] [address] Care Team Providers Care Office Agent Name Role Phone Gurvinder Doan MD Primary Care Provider [phone] Jaime Bobby MD Unavailable [phone] Doreen Hyatt MD Unavailable [phone] Reason for Visit * Reason Onset Date Comments Prescreening 02/02/2020 1.NO 2.NO 3.NO 4 .NO Encounter Details Date Type Department Care Team (Late st Contact Info) Description 02/02/2020 Telephone [facility] - [facility] [address] [place] [address] [place], [place] Prescreening (1.NO 2.NO 3.NO 4.NO) Social History Tobacco Use Types Packs/Day Years Used Date Smoking Tobacco: Never Smokeless Tobacco: Current Chew Alcohol Use Standard Drinks/Week Comments Yes 0 (1 standard drink = 0.6 oz pur e alcohol) Sex and Gender Information Value Date Recorded Sex Assigned at Not on file Legal Sex Male 10:44 AM TECHNOLOGY PROJECT MANAGER Gender Identity Not on file Sexual Orientation Not on file documented as of this encounter Plan of Treatment Not on file documented as of this encounter Visit Diagnoses Not on filedocumented in this encounter Care Teams Office Agent Relationship Specialty Start Date End Date Gurvinder Doan MD [address] [address] PCP - General Family Medicine 01/16/20 Jaime Bobby MD [address] [facility] [address] [place] [address] Consulting Physician Orthopedic Surgery 07/05/20 Doreen Hyatt MD [address] [facility] [address], [place] [address] Consulting Physician Cardiology 10/07/24 documented as of this encounter
--- OUTSIDE RECORDS SUMMARY | 2024-11-30 12:03 | XMS_ITS | CONTINUITY OF CARE DOCUMENT ---
Author Name jacky rico Address Unknown Organization [facility] Address [address] [facility] [address] [place] [address] Phone [phone] Care Team Providers Care Developmental Therapist Name Role Phone Julien CACERES, Lucas Unavailable FIDELIA RUDOLPH MD Unavailable [phone] INSURANCE PROVIDERS Payer name Policy type / Coverage type Meme red libertarian ID [employer] OPEN ACCESS Other [id number]
--- OUTSIDE RECORDS SUMMARY | 2024-11-30 12:03 | XMS_ITS | Encounter Summary ---
Author Organization [facility] Address [address] [facility] [address] [place] [address] Care Team Providers Care Software Sales Manager Name Role Phone Gurvinder Doan MD Primary Care Provider [phone] Gurvinder Doan MD Primary Care Provider [phone] Colt Hernandez MD Primary Care Provider [phone]- [phone] Gurvinder Doan MD Primary Care Provider [phone] Jaime Bobby MD Unavailable Doreen Hyatt MD Unavailable [phone] Encounter Details Date Type Department Care Team (Late st Contact Info) Description 10/10/2016 Orders Only [facility] ProviderScarlett MD [address] [place] [address] Social History Tobacco Use Types Packs/Day Years Used Date Smoking Tobacco: Smoker, Current Status Unknown Alcohol Use Standard Drinks/Week Comments Yes 0 (1 standard drink = 0.6 oz pur e alcohol) Sex and Gender Information Value Date Recorded Sex Assigned at Not on file Legal Sex Male 10:44 AM TREASURY REPRESENTATIVE Gender Identity Not on file Sexual Orientation Not on file documented as of this encounter Plan of Treatment Not on file documented as of this encounter Procedures Procedure Name Priority Date/Time Associated Diagnosis Comments CARDIOLOGY REPORT 10/10/2016 documented in this encounter Results * CARDIOLOGY REPORT (10/10/2016) Anatomical Region Laterality Modality Other Narrative 10/10/2016 Ordered by an unspecified provider. us Historical Provider [facility] ROB[facility]O WALKER Final Result documented in this encounter Visit Diagnoses Not on filedocumented in this encounter Care Teams Software Sales Manager Relationship Specialty Start Date End Date Gurvinder Doan MD [address] [address] PCP - General 12/12/16 06/27/18 Gurvinder Doan MD [address] [address] PCP - General 10/06/11 12/11/16 Colt Hernandez MD [address] [place] [address] PCP - General Family Practice 06/28/18 01/15/20 Gurvinder Doan MD [address] [address] PCP - General Family Medicine 01/16/20 Jaime Bobby MD [address] [facility] [address] [place] [address] Consulting Physician Orthopedic Surgery 07/05/20 Doreen Hyatt MD [address] [facility] [address], [place] [address] Consulting Physician Cardiology 10/07/24 documented as of this encounter
--- OUTSIDE RECORDS SUMMARY | 2024-11-30 12:03 | XMS_ITS | Continuity of Care Document ---
Author Organization [facility] Address [address] [place] [address] Phone Care Team Providers Care Vineyard Supervisor Name Role Phone Administrative, Provider Unavailable Unavail able Allergies, Adverse Reactions, Alerts Substance Reaction Status Criticality No Known Allergies Active No Inform ation Medications Medication Instructions Dosage Effective Dates (start - stop) Status Comments labetalol 300 mg tablet - Active lisinopril 40 mg tablet - Active Calcium 600 600 mg calcium (1,500 mg) tablet - Active warfarin 5 mg tablet - Active chlorthalidone 25 mg tablet - Ac tive pyridoxine (vitamin B6) ER 200 mg tablet,extended release - Active cyanocobalamin (vitamin B-12) 1,000 mcg capsule - Active diltiazem ER 240 mg capsule,24 hr,extended release - Active melatonin 5 mg capsule - Active magnesium 250 mg tablet - Active bupropion HCl XL 300 mg 24 hr tablet, extended release - Active citalopram 20 mg tablet - Active Celebrex 200 mg capsule - Active Vitamin D3 2,000 unit tablet - Active Spiriva Respimat 1.25 mcg/actuation solution for inhalation - Active Proair Digihaler 90 mcg/actuation aerosol powder breath act, sensor - Active hydralazine 25 mg tablet - Activ e Procedures Procedure Date Medical Record Copy Medical Record Copy Per Page Affidavit Office/outpatient visit,est, mod 2021 Medical Record Copy Medical Record Copy Per Page Office/outpatient visit,est, mod 2020 Supplemental Report Medical Record Copy Medical Record Copy Per Page Office/outpatient visit,est, low 2020 Supplemental Report Medical Record Copy Medical Record Copy Per Page Disability Form Office/outpatient visit,est, mod 2020 Office/outpatient visit,est, low 2020 Supplemental Report Special Narrative Report Global/Postop followup visit Supplemental Report Global/Postop followup visit Supplemental Report Global/Postop followup visit Supplemental Report Office/outpatient visit,new, mod 2019 Advance Directives Directive Yes / No Effective Date File Name No Information Encounters Encounter Description Practice Location Reason(s) For Visit Diagnoses Date Provider Providers Copied on Encounter [facility], [address] [place] [address], [id number], tel:[phone] [facility] No Information Administrative Provider. [address] [place] [address], [facility] [address], [place], [place], [id number], [place]. tel:[phone] Office/outpa tient visit,est, mod [facility], [address] [place] [address], [id number], tel:[phone] [facility] right shoulder pain (chief complaint) Spontaneous rupture of other tendons, unspecified upper arm Dec- 2 Shayy Allen. [address] [facility], [address] [place] [address], [place], [place], [id number], [place]. tel:[phone] [facility], [address] [address], [place], [place], [id number], [place] tel:[phone] [facility] No Information 1 Administrative Provider. [address] [facility], [address] [place] [address], [place], [place], [id number], [place]. tel:[phone] Office/outpa tient visit,est, [facility], [address] [address], [place], [place], [id number], [place] tel:[phone] [facility] Left shoulder (chief complaint) Complete rotatr-cuff tear/ruptr of left shoulder, not trauma 1 Kanu Sandoval. [address] [facility], [address] [place] [address], [place], [place], [id number], [place]. tel:[phone] [facility], [address], [id number], [place] tel:[phone] [facility] No Information 1 Administrative Provider. [address] [facility], [address] [place] [address], [place], [place], [id number], [place]. tel:[phone] Office/outpa tient visit,est, low [facility], [address], [id number], [place] tel:[phone] [facility] Left shoulder (chief complaint) Complete rotatr-cuff tear/ruptr of left shoulder, not trauma 1 Kanu Sandoval. [address] [facility], [place] [address], [place], [place], [id number], [place]. tel:[phone] [facility], [address], [id number], [place] tel:[phone] [facility] No Information 1 Administrative Provider. [address] [facility], [place] [address], [place], [place], [id number], [place]. tel:[phone] [facility], [address] [place] [address], [id number], [place] tel:[phone] [facility] No Information 0 1 Kanu Sandoval. [address] [facility], [address] [place] [address], [place], [place], [id number], [place]. tel:[phone] Office/outpa tient visit,est, mod [facility], [address] [place] [address], [place], [place], [id number], [place] tel:[phone] [facility] Left shoulder (chief complaint) Complete rotatr-cuff tear/ruptr of left shoulder, not trauma 1 Kanu Sandoval. [address] [facility], [address], [id number], [place]. tel:[phone] Office/outpa tient visit,est, low [facility], [address] [place] [address], [id number], [place] tel:[phone] [facility] Left shoulder (chief complaint) Complete rotatr-cuff tear/ruptr of left shoulder, not trauma 1 Kanu Sandoval. [address] [place] [address], [id number], [place]. tel:[phone] [facility], [address] [place] [address], [id number], [place] tel:[phone] [facility] No Information 1 Kanu Sandoval. [address] [facility], [address], [id number], [place]. tel:[phone] [facility], [address] [place] [address], [id number], [place] tel:[phone] [facility] Left shoulder (chief complaint) Complete rotatr-cuff tear/ruptr of left shoulder, not trauma Gabriel-0 1 Kanu Sandoval. [address] [facility], [address], [id number], [place]. tel:[phone] [facility], [address], [id number], tel:[phone] [facility] Left shoulder (chief complaint) Complete rotatr-cuff tear/ruptr of left shoulder, not trauma Nov-3 0- 0 Kanu Sandoval. [address] [facility], [facility] [address], [place], [id number], [place]. tel:[phone] [facility], [address], [id number], tel:[phone] [facility] Left shoulder (chief complaint) Complete rotatr-cuff tear/ruptr of left shoulder, not trauma 0 0 Kanu Sandoval. [address] [facility], [address], [id number], [place]. tel:[phone] Office/outpa tient visit,[facility], [facility], [address], [id number], tel:[phone] [facility] Left Shoulder Injury (chief complaint) Complete rotatr-cuff tear/ruptr of left shoulder, not trauma May-0 0 Kanu Sandoval. [address] [facility], [address], [id number], [place]. tel:[phone] Family History Family Member Type Diagnosis Age At Onset No Information Payers Payer name Insurance type Covered libertarian ID Authoriza tion(s) No Information Social History Type Description Quantity Date Captured Comments Sex Male Smoking Status No Information Chief Complaint And Reason For Visit No Information Reason For Referral Reason For Referral No Information History Of Present Illness Encounter Date Complaint History Of Prese nt Illness right shoulder pain Mr Kirby is a 56 year old male who complains of right shoulder pain. He presents with pain, decreased range of motion and weakness on the right side. He states that the symptoms have been chronic traumatic. He landed on his shoulder and back on 07/19/2021 and pain went away. Pain returned about a month ago. Last week he stretched his arm and developed bruising in the upper arm 2-3 days after. However, pain improved. The symptoms occur constantly. The problem is unchanged. Currently the patient states that the symptoms are moderate. The pain is described as aching, sharp, stabbing and throbbing. The symptoms occur continuously. The patient is experiencing pain in the following locations: upper arm, lateral shoulder and anterior shoulder on the right side. He rates his current pain as 6/10. The pain does not radiate. The patient presents with shoulder weakness. The symptoms are aggravated by lifting, pushing and sitting, standing, raising. Darrell states that the symptoms are relieved by supporting arm out to side and elevating a little. In addition to right shoulder pain the patient is also experiencing decreased mobility, popping, joint tenderness, tingling in the arms and weakness. The patient has had a previous x-ray. X-rays of the right shoulder on 12/23/2021 at [facility] were imported into the PACS system at and reviewed today. He takes warfarin. He has had no previous treatment. Patient has not had any pertinent therapy for this condition. Patient has had no prior surgeries. There were no previous episodes. He experienced no previous injury. Left shoulder Patient comes in today for follow up of his left shoulder Left shoulder Patient comes in today for follow up of his left shoulder Left shoulder Patient comes in today for follow up of his left shoulder Left shoulder Patient comes in today for follow up of his left shoulder arthroscopy Left shoulder Patient comes in today for follow up of his left shoulder arthroscopy Left shoulder Patient comes in today for follow up of his left shoulder arthroscopy Left shoulder Patient comes in today for follow up of his left shoulder arthroscopy Left Shoulder Injury Location: l eft. Additional information: Patient comes in today for left shoulder pain. Functional Status Date Functional Assessmen t No Information Instructions Date Instruction Additional Infor mation No Information Assessments Type Assessment Date No Information Patient Care Teams Name Effective Dates (start - stop) Status Members No Information
== END 2024-11-30 10:31 | disposition home or self-care (01) ==
LOC: ANHLAB 10:33
PROVIDERS: PCP Family Medicine; Visit Provider Podiatrist Foot & Ankle Surgery
DX: M10.071 Idiopathic gout, right ankle and foot (principal)
CPT/HCPCS: 36415; 80053; 84550

== ENCOUNTER 2025-03-27 08:10 | Outpatient (CLI) | payer OTHER, SELFPAY ==
--- OUTSIDE RECORDS SUMMARY | 2025-03-27 08:14 | XMS_ITS | Encounter Summary ---
Author Organization [facility] Address [address] [place] [address] Care Team Providers Care Drupal Developer Name Role Phone Gurvinder Doan MD Primary Care Provider [phone] Gurvinder Doan MD Primary Care Provider [phone] Colt Hernandez MD Primary Care Provider [phone] Gurvinder Doan MD Primary Care Provider [phone] Jaime Bobby MD Unavailable [phone] Doreen Hyatt MD Unavailable [phone] Encounter Details Date Type Department Care Team (Late st Contact Info) Description 10/10/2016 Orders Only [facility] ProviderScarlett MD [address] [place] [address] Social History Tobacco Use Types Packs/Day Years Used Date Smoking Tobacco: Smoker, Current Status Unknown Alcohol Use Standard Drinks/Week Comments Yes 0 (1 standard drink = 0.6 oz pur e alcohol) Sex and Gender Information Value Date Recorded Sex Assigned at Not on file 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 Gender Identity Not on file Sexual Orientation [...] on filedocumented in this encounter Care Teams Drupal Developer Relationship Specialty Start Date End Date Gurvinder Doan MD [address] [address] PCP - General 12/12/16 06/27/18 Gurvinder Doan MD [address] [address] PCP - General 10/06/11 12/11/16 Colt Hernandez MD [address] [place] [address] PCP - General Family Practice 06/28/18 01/15/20 Gurvinder Doan MD [address] [address] PCP - General Family Medicine 01/16/20 Jaime Bobby MD [address] [place] [address] Consulting Physician Orthopedic Surgery 07/05/20 Doreen Hyatt MD [address] [facility] [address], [place] [id number] Consulting Physician Cardiology 10/07/24 documented as of this encounter
--- OUTSIDE RECORDS SUMMARY | 2025-03-27 08:14 | XMS_ITS | Referral Summary ---
Author Organization [facility] Address [address] [place] [address] Care Team Providers Care Director Of Claims Name Role Phone Gurvinder Doan MD Primary Care Provider [phone] Jaime Bobby MD Unavailable Doreen Hyatt MD Unavailable [phone] Encounters Date Type Department Care Team Description 03/16/2025 Anticoagulation Visit [facility] Cardiology [address] [place] [address] Arlyn Goins RN Chronic anticoagulation (Primary Dx); H/O mechanical aortic valve replacement 02/27/2025 Anticoagulation Visit [facility] Cardiology [address] [place] [address] Arlyn Goins RN Chronic anticoagulation (Primary Dx); H/O mechanical aortic valve replacement 02/09/2025 Anticoagulation Visit [facility] Cardiology [address] [place] [address] Rupert Alcantara RN Chronic anticoagulation (Primary Dx); H/O mechanical aortic valve replacement 01/20/2025 Telephone [facility] Cardiology [address] [place] [address] Doreen Hyatt MD from Last 3 Months Allergies No known [...] as needed for pain 90 capsule 1 02/14/20 20 Active cholecalciferol (VITAMIN D-3) 25 mcg (1,000 unit) tablet Take 1 tablet (1,000 Units total) by mouth daily Active citalopram (CeleXA) 20 mg tablet Take 1 tablet (20 mg total) by mouth nightly Active cyanocobalamin (Vitamin B-12) 1,000 mcg tabletIndication s:Prevention of Vitamin B12 Deficiency Take 1 tablet (1,000 mcg total) by mouth daily Active pyridoxine, vitamin B6, 200 mg tablet extended release Take 400 mg by mouth daily Active buPROPion XL (WELLBUTRIN XL) 300 mg 24 hr tablet TAKE 1 TABLET BY MOUTH EVERY DAY 90 tablet 2 06/26/20 23 Active albuterol HFA (PROVENTIL HFA,VENTOLIN HFA,PROAIR HFA) 90 mcg/actuation inhaler Inhale 2 puffs every 4 (four) hours as needed 12/18/19 23 Active febuxostat (ULORIC) 80 mg tablet Take 1 tablet (80 mg total) by mouth daily 07/06/20 23 Active labetaloL (NORMODYNE,TRAND ATE) 300 mg tabletIndication s:H/O ascending aorta repair,Chronic thoracic aortic dissection (HCC),Benign essential HTN TAKE 1/2 TABLET TWICE A DAY BY MOUTH 90 tablet 1 09/29/19 24 Active tadalafiL (CIALIS) 5 mg tablet Take 1 tablet (5 mg total) by mouth daily 09/05/20 24 Active warfarin (COUMADIN) 5 mg tablet TAKE 7MG 5 DAYS A WEEK AND 10MG 2 DAYS A WEEK OR DIRECTED BY PHYSICIAN. 120 tablet 1 10/05/19 25 Active dilTIAZem CD/XR/XT (dilTIAZem XR) 120 mg 24 hr capsule TAKE 1 CAPSULE BY MOUTH EVERY NIGHT 90 capsule 3 10/05/19 25 Active lisinopriL (PRINIVIL,ZESTRI L) 40 mg tablet TAKE 1 TABLET BY MOUTH EVERY DAY AT NIGHT 90 tablet 2 02/02/20 25 Active warfarin (COUMADIN) 2 mg tablet TAKE 7 MG (3.5 TABLETS) BY MOUTH 5 DAYS A WEEK OR DIRECTED BY PHYSICIAN. 315 tablet 1 02/08/20 25 Active hydrALAZINE (APRESOLINE) 25 mg tabletIndication s:Essential hypertension TAKE 1 TABLET BY MOUTH TWICE A DAY 180 tablet 2 03/22/20 25 Active chlorthalidone (HYGROTON) 25 mg tablet TAKE 1 TABLET BY MOUTH EVERY DAY 90 tablet 3 03/22/20 25 Active hydrALAZINE (APRESOLINE) 25 mg tabletIndication s:Essential hypertension TAKE 1 TABLET BY MOUTH TWICE A DAY 180 tablet 2 02/23/20 24 025 Discontinued chlorthalidone (HYGROTON) 25 mg tablet TAKE 1 TABLET BY MOUTH EVERY DAY 90 tablet 3 04/07/20 24 025 Discontinued Active Problems Problem Noted Date Diagnosed Date Mild intermittent asthma without complication Visual disturbance 03/17/2023 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 03/06/2023 Embolism and thrombosis of artery 02/12/2023 Precordial pain 03/03/2022 Dizziness 07/15/2021 Nontraumatic complete tear of left rotator cuff 06/05/2020 Overview (06/05/2020): Added automatically from request for surgery [id number] MORLEY (dyspnea on exertion) 01/16/2020 Sleep disorder 01/16/2020 Chronic fatigue 06/28/2018 Mixed hyperlipidemia 06/28/2018 Essential hypertension 05/08/2017 Assessment & Plan (05/08/2017 5:18 PM CDT): Hypertension is reasonable but could be better PVC (premature ventricular contraction) 05/08/20 17 Aortic valve disorders [I35.9] 02/24/2017 [facility] (current) use of anticoagulants [Z79.0 1] 02/24/2017 [...] severe aortic insufficiency, Dr. 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 Gender Identity Not on file Sexual Orientation Not on file Last Filed Vital Signs Vital Sign Reading Time Taken Comments Blood Pressure 110/66 09/26/2024 9:12 AM DURAL MECHANIC Pulse 69 09/26/2024 9:12 AM DURAL MECHANIC Temperature 36.3 C (97.4 F) 02/18/2023 12:29 PM CDT Respiratory Rate 28 02/18/2023 4:25 PM CDT Oxygen Saturation 95% 09/26/2024 9:12 AM DURAL MECHANIC Inhaled Oxygen Concentration - - Weight 96.2 kg (212 lb) 09/26/2024 9:12 AM DURAL MECHANIC Height 182.9 cm (6') 09/26/2024 9:12 AM DURAL MECHANIC Body Mass Index 28.75 09/26/2024 9:12 AM DURAL MECHANIC Plan of Treatment Not on file Medical Devices Implanted Type Area Manager Medicare Device Identifier Shelf Expiration Date Model / Serial / Lot [employer] Ar-1927bcft Corkscrew Tigertail 5.5mm 14.7mm Drive Mechanism Vent 2 Square - [id number] Implanted:Qty: 1 on 07/05/2020 by Jaime Bobby MD at [facility] Left: Shoulder [employer] [id number] 01/12/2024 AR-1927B CFT / / [id number] [employer] Ar-1927bcft Corkscrew Tigertail 5.5mm 14[address] Mechanism Vent 2 Square - [id number] Implanted:Qty: 1 on 07/05/2020 by Jaime Bobby MD at [facility] Left: Shoulder [employer] [id number] 09/13/2023 AR-1927B CFT / / [id number] [employer] Ar-1927bcft Corkscrew Tigertail 5.5mm 14[address] Mechanism Vent 2 Square - [id number] Implanted:Qty: 1 on 07/05/2020 by Jaime Bobby MD at [facility] Left: Shoulder [employer] [id number] 04/13/2024 AR-1927B CFT / / [id number] [employer] Ar-2324bcc Swivelock C 4.75mm 19.1mm Closed Eyelet Vent [place] Suture - [id number] Implanted:Qty: 1 on 07/05/2020 by Jaime Bobby MD at [facility] Left: Shoulder [employer] [id number] 03/13/2024 AR-2324B CC / / [id number] [employer] Ar-2324bcc Swivelock C 4.75mm 19.1mm Closed Eyelet Vent [place] Suture - [id number] Implanted:Qty: 1 on 07/05/2020 by Jaime Bobby MD at [facility] Left: Shoulder [employer] [id number] 10/14/2023 AR-2324B CC / / [id number] [employer] Device Vascular Closure Femoral Artery Bioabsorbable Dual Method Vascade 6-7fr Collagen [id number] - S0 - [id number] Implanted:Qty: 1 on 02/18/2023 by Smeaj Segura MD at [facility] [employer] 11/17/2024 [id number] / 0 / [id number] [facility] Mynxgrip 5fr Balloon Catheter Integrate Sealant Lock Latex Free [id number] - S0 - [id number] Implanted:Qty: 1 on 02/18/2023 by Semaj Segura MD at [facility] [employer] 11/11/2024 [id number] / [id number] / [id number] Procedures Procedure Name Priority Date/Time Associated Diagnosis Comments PROTIME-INR Routine 03/16/2025 PROTIME-INR Routine 02/25/2025 PROTIME-INR Routine 02/09/2025 from Last 3 Months Results * (ABNORMAL) Protime-INR (03/16/2025) INR 3.30(A) 0.90 - 1.10 EXTERNAL LAB Blood Historical Provider MD LAB BLOOD ORDERABLES Giselle l Result EXTERNAL LAB * (ABNORMAL) Protime-INR (02/25/2025) INR 4.20(A) 0.90 - 1.10 EXTERNAL LAB Blood Historical Provider MD LAB BLOOD ORDERABLES Giselle l Result EXTERNAL LAB * (ABNORMAL) Protime-INR (02/09/2025) INR 1.50(A) 0.90 - 1.10 EXTERNAL LAB Blood 02/09/2025 Historical Provider MD LAB BLOOD ORDERABLES Giselle l Result EXTERNAL LAB from Last 3 Months Insurance * Guarantor: Darrell Powell Account Type Relation to Patient Date of Phone Billing Address Personal/Family Self 1965 [address] [place] [address] [facility] [phone] [facility] [id number] Care Teams Director Of Claims Relationship Specialty Start Date End Date Gurvinder Doan MD [address] [address] PCP - General Family Medicine 01/16/20 Jaime Bobby MD [address] [facility] [address] [place] [address] Consulting Physician Orthopedic Surgery 07/05/20 Doreen Hyatt MD [address] [facility] [address], [place] [address] Consulting Physician Cardiology 10/07/24
--- OUTSIDE RECORDS SUMMARY | 2025-03-27 08:14 | XMS_ITS | Continuity of Care Document ---
Author Organization [facility] Address [address] [place] [address] Phone Care Team Providers Care Hand Tool Lapper Name Role Phone Administrative, Provider Unavailable Unavail [...] Date Provider Providers Copied on Encounter [facility], [address] [place] [address], [id number], tel:[phone] [facility] No Information Administrative Provider. [address] [place] [address], [facility], [place], [place], [id number], [place]. tel:[phone] Office/outpa tient visit,est, mod [facility], [address] [place] [address], [id number], tel:[phone] [facility] right shoulder pain (chief complaint) Spontaneous rupture of other tendons, unspecified upper arm Dec- 2 Shayy Allen. [address] [facility], [place] [address], [place], [place], [id number], [place]. tel:[phone] [facility], [address] [address], [place], [place], [id number], [place] tel:[phone] [facility] No Information 1 Administrative Provider. [address] [facility], [place] [address], [place], [place], [id number], [place]. tel:[phone] Office/outpa tient visit,est, [facility], [address] [place] [address], [id number], [place] tel:[phone] [facility] [employer] Left shoulder (chief complaint) Complete rotatr-cuff tear/ruptr of left shoulder, not trauma 1 Kanu Sandoval. [address] [facility], [place] [address], [place], [place], [id number], [place]. tel:[phone] [facility], [address] [place] [address], [id number], [place] tel:[phone] [facility] No Information 1 Administrative Provider. [address] [facility], [address], [id number], [place]. tel:[phone] Office/outpa tient visit,est, [facility], [address] [place] [address], [id number], [place] tel:[phone] [facility] Left shoulder (chief complaint) Complete rotatr-cuff tear/ruptr of left shoulder, not trauma 1 Kanu Sandoval. [address] [facility], [place] [address], [place], [place], [id number], [place]. tel:[phone] [facility], [address], [id number], [place] tel:[phone] [facility] No Information 1 Administrative Provider. [address] [facility], [place] [address], [place], [place], [id number], [place]. tel:[phone] [facility], [address], [id number], [place] tel:[phone] [facility] No Information 0 1 Kanu Sandoval. [address] [place] [address], [place], [place], [id number], [place]. tel:[phone] Office/outpa tient visit,est, mod [facility], [address] [place] [address], [id number], [place] tel:[phone] [facility] Left shoulder (chief complaint) Complete rotatr-cuff tear/ruptr of left shoulder, not trauma 1 Kanu Sandoval. [address], [id number], [place]. tel:[phone] Office/outpa tient visit,est, low [facility], [address], [id number], [place] tel:[phone] [facility] Left shoulder (chief complaint) Complete rotatr-cuff tear/ruptr of left shoulder, not trauma 1 Kanu Sandoval. [address], [id number], [place]. tel:[phone] [facility], [address] [place] [address], [id number], [place] tel:[phone] [facility] No Information 1 Kanu Sandoval. [address], [id number], [place]. tel:[phone] [facility], [address] [place] [address], [id number], [place] tel:[phone] [facility] Left shoulder (chief complaint) Complete rotatr-cuff tear/ruptr of left shoulder, not trauma 0 1 Kanu Sandoval. [address] [facility], [address], [id number], [place]. tel:[phone] [facility], [address], [id number], [place] tel:[phone] [facility] Left shoulder (chief complaint) Complete rotatr-cuff tear/ruptr of left shoulder, not trauma Jul-3 0 0 Kanu Sandoval. [address] [facility], [address], [place], [place], [id number], [place]. tel:[phone] [facility], [address] [address], [place], [place], [id number], tel:[phone] [facility] Left shoulder (chief complaint) Complete rotatr-cuff tear/ruptr of left shoulder, not trauma 0 Kanu Sandoval. [address] [facility], [address], [id number], [place]. tel:[phone] Office/outpa tient visit,[facility], [facility], [address], [id number], [place] tel:[phone] [facility] Left Shoulder Injury (chief complaint) Complete rotatr-cuff tear/ruptr of left shoulder, not trauma 0 0 Kanu Sandoval. [address] [facility], [address], [id number], [place]. tel:[phone] Family History Family Member Type Diagnosis Age At Onset No Information Payers Payer name Insurance type Covered alliance party ID Authoriza tion(s) No Information Social History [...] of the right shoulder on 12/23/2021 at [facility] were imported into the PACS [...]
--- OUTSIDE RECORDS SUMMARY | 2025-03-27 08:14 | XMS_ITS | Clinical Summary ---
Author Organization [facility] Address [address] [place] [address] Care Team Providers Care Manager Material Name Role Phone Gurvinder Doan MD Primary Care Provider [phone] Jaime Bobby MD Unavailable Doreen Hyatt MD Unavailable [phone] Allergies No known active allergies Medications CALCIUM [...] (06/05/2020): Added automatically from request for surgery [id number] MORLEY (dyspnea on exertion) 01/16/2020 Sleep disorder 01/16/2020 Chronic fatigue 06/28/2018 Mixed hyperlipidemia 06/28/2018 Essential hypertension 05/08/2017 Assessment & Plan (05/08/2017 5:18 PM CDT): Hypertension is reasonable but could be better PVC (premature ventricular contraction) 05/08/20 17 Aortic valve disorders [I35.9] 02/24/2017 half-way (current) use of anticoagulants [Z79.0 1] 02/24/2017 [...] acute dissection and severe aortic insufficiency, Dr. Vicotr M Lorenzana, [facility] Assessment & Plan (05/08/2017 5:16 PM CDT): [...] Acute dissection, s/p repair Dr Lorenzana at [facility] Assessment & Plan (05/08/2017 5:18 PM CDT): [...] Department Care Team Description 03/16/2025 Anticoagulation Visit [facility] Cardiology [address] [place] [address] Arlyn Goins RN Chronic anticoagulation (Primary Dx); H/O mechanical aortic valve replacement 02/27/2025 Anticoagulation Visit [facility] Cardiology [address] [place] [address] Arlyn Goins RN Chronic anticoagulation (Primary Dx); H/O mechanical aortic valve replacement 02/09/2025 Anticoagulation Visit [facility] Cardiology [address] [place] [id number] Rupert Alcantara RN Chronic anticoagulation (Primary Dx); H/O mechanical aortic valve replacement 01/20/2025 Telephone [facility] Cardiology [address] [place] [address] Doreen Hyatt MD from Last 3 Months Surgical History Surgery Date Site/Laterality Comments OTHER SURGICAL HISTORY 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 Gender Identity Not on file Sexual Orientation Not on file Obstetrics History Last Filed Vital Signs Vital Sign Reading Time Taken Comments Blood Pressure 110/66 09/26/2024 9:12 AM DETAIL TECHNICIAN Pulse 69 09/26/2024 9:12 AM DETAIL TECHNICIAN Temperature 36.3 C (97.4 F) 02/18/2023 12:29 PM CDT Respiratory Rate 28 02/18/2023 4:25 PM CDT Oxygen Saturation 95% 09/26/2024 9:12 AM DETAIL TECHNICIAN Inhaled Oxygen Concentration - - Weight 96.2 kg (212 lb) 09/26/2024 9:12 AM DETAIL TECHNICIAN Height 182.9 cm (6') 09/26/2024 9:12 AM DETAIL TECHNICIAN Body Mass Index 28.75 09/26/2024 9:12 AM DETAIL TECHNICIAN Plan of Treatment Health Maintenance Due Date Last Done Comments Colon Cancer Screening-Colonoscopy 1963 Depression Screening 1963 Hepatitis C Screening 1963 Prostate Cancer Screening-PSA 1963 Hepatitis B Screening 1981 Regular Well Visit/Exam 18-64 1981 Pneumococcal vaccine <65 (1 of 2 - PCV) 1982 Zoster Vaccine (1 of 2) 2013 Influenza Vaccine (#1) 2025 DTaP/Tdap/Td Vaccine (2 - Td or Tdap) 04/12/2030 Medical Devices Implanted Type Area Workforce Management Coordinator Device Identifier Shelf Expiration Date Model / Serial / Lot [employer] Ar-1927bcft Corkscrew Tigertail 5.5mm 14.7[address] Drive Mechanism Vent 2 Square - [id number] Implanted:Qty: 1 on 07/05/2020 by Jaime Bobby MD at [facility] Left: Shoulder [employer] [id number] 01/12/2024 AR-1927B CFT / / [id number] [employer] Ar-1927bcft Corkscrew Tigertail 5.5mm 14.7[address] Drive Mechanism Vent 2 Square - [id number] Implanted:Qty: 1 on 07/05/2020 by Jaime Bobby MD at [facility] Left: Shoulder [employer] [id number] 09/13/2023 AR-1927B CFT / / [id number] [employer] Ar-1927bcft Corkscrew Tigertail 5.5mm 14.7[address] Drive Mechanism Vent 2 Square - [id number] Implanted:Qty: 1 on 07/05/2020 by Jaime Bobby MD at [facility] Left: Shoulder [employer] [id number] 04/13/2024 AR-1927B CFT / / [id number] [employer] Ar-2324bcc Swivelock C 4.75mm 19.1mm Closed Eyelet Vent [place] Suture - [id number] Implanted:Qty: 1 on 07/05/2020 by Jaime Bobby MD at [facility] Left: Shoulder [employer] [id number] 03/13/2024 AR-2324B CC / / [id number] [employer] Ar-2324bcc Swivelock C 4.75mm 19.1mm Closed Eyelet Vent [place] Suture - [id number] Implanted:Qty: 1 on 07/05/2020 by Jaime Bobby MD at [facility] Left: Shoulder [employer] [id number] 10/14/2023 AR-2324B CC / / [id number] [employer] Device Vascular Closure Femoral Artery Bioabsorbable Dual Method Vascade 6-7fr Collagen [id number] - S0 - [id number] Implanted:Qty: 1 on 02/18/2023 by Semaj Segura MD at [facility] [employer] 11/17/2024 [id number] / 0 / [id number] [facility] Mynxgrip 5fr Balloon Catheter Integrate Sealant Lock Latex Free [id number] - S0 - [id number] Implanted:Qty: 1 on 02/18/2023 by Semaj Segura MD at [facility] Cord 11/11/2024 [id number] / [id number] / [id number] Procedures Procedure Name Priority Date/Time Associated Diagnosis Comments PROTIME-INR Routine 03/16/2025 PROTIME-INR Routine 02/25/2025 PROTIME-INR Routine 02/09/2025 from Last 3 Months Results * (ABNORMAL) Protime-INR (03/16/2025) INR 3.30(A) 0.90 - 1.10 EXTERNAL LAB Blood Historical Provider MD LAB BLOOD ORDERABLES Giselle l Result EXTERNAL LAB * (ABNORMAL) Protime-INR (02/25/2025) INR 4.20(A) 0.90 - 1.10 EXTERNAL LAB Blood Result [facility] Provider MD LAB BLOOD ORDERABLES Giselle l Result EXTERNAL LAB * (ABNORMAL) Protime-INR (02/09/2025) INR 1.50(A) 0.90 - 1.10 EXTERNAL LAB Blood 02/09/2025 Result [facility] Historical Provider MD LAB BLOOD ORDERABLES Giselle l Result EXTERNAL LAB from Last 3 Months Insurance [facility] [id number] [facility] [id number] Care Teams Manager Material Relationship Specialty Start Date End Date Gurvinder Doan MD [address] [facility] [address] [place] [address] PCP - General Family Medicine 01/16/20 Jaime Bobby MD [address] [facility] 100 [place] [address] Consulting Physician Orthopedic Surgery 07/05/20 Doreen Hyatt MD [address] [facility] [address] [address] Consulting Physician Cardiology 10/07/24
--- OUTSIDE RECORDS SUMMARY | 2025-03-27 08:14 | XMS_ITS | Encounter Summary ---
Author Organization [facility] Healthcare Address [address] [place] [address] Care Team Providers Care Rotary Veneer Machine Operator Name Role Phone Gurvinder Doan MD Primary Care Provider [phone] Jaime Bobby MD Unavailable [phone] Doreen Hyatt MD Unavailable [phone] Reason for Visit * Reason Onset Date Comments Prescreening 02/02/2020 1.NO 2.NO 3.NO 4 .NO Encounter Details Date Type Department Care Team (Late st Contact Info) Description 02/02/2020 Telephone [facility] - Imaging [address] [place] [address] [place], [place] Prescreening (1.NO 2.NO 3.NO 4.NO) Social History Tobacco Use Types Packs/Day Years Used Date Smoking Tobacco: Never Smokeless Tobacco: Current Chew Alcohol Use Standard Drinks/Week Comments Yes 0 (1 standard drink = 0.6 oz pur e alcohol) Sex and Gender Information Value Date Recorded Sex Assigned at Not on file Legal Sex Male 10:44 AM BLAST FURNACE TENDER Gender Identity Not on file Sexual Orientation Not on file documented as of this encounter Plan of Treatment Not on file documented as of this encounter Visit Diagnoses Not on filedocumented in this encounter Care Teams Rotary Veneer Machine Operator Relationship Specialty Start Date End Date Gurvinder Doan MD [address] [address] PCP - General Family Medicine 01/16/20 Jaime Bobby MD [address] [facility] [address] [place] [address] Consulting Physician Orthopedic Surgery 07/05/20 Doreen Hyatt MD [address] [facility] [address] [address] Consulting Physician Cardiology 10/07/24 documented as of this encounter
--- OUTSIDE RECORDS SUMMARY | 2025-03-27 08:14 | XMS_ITS | Encounter Summary ---
Author Organization [facility] Healthcare Address [address] [place] [address] Care Team Providers Care Mailroom Supervisor Name Role Phone Gurvinder Doan MD Primary Care Provider [phone] Jaime Bobby MD Unavailable Doreen Hyatt MD Unavailable [phone] Encounter Details Date Type Department Care Team (Late st Contact Info) Description 01/20/2025 Telephone [facility] Cardiology [address] [place] [address] Doreen Hyatt MD [address] [address] Social History Tobacco Use Types Packs/Day Years [...] on file Legal Sex Male 10:44 AM SURG TECH Gender Identity Not on file Sexual Orientation Not on file documented as of this encounter Plan of Treatment Not on file documented as of this encounter Visit Diagnoses Not on filedocumented in this encounter Care Teams Mailroom Supervisor Relationship Specialty Start Date End Date Gurvinder Doan MD [address] [address] PCP - General Family Medicine 01/16/20 Jaime Bobby MD 1050 [facility] [address] [place] [address] Consulting Physician Orthopedic Surgery 07/05/20 Doreen Hyatt MD [address] [facility] [address], [place] [address] Consulting Physician Cardiology 10/07/24 documented as of this encounter
[2025-03-27 08:46] LABS: Hematocrit 39.2 % (42.0-52.0); Hemoglobin 12.6 g/dL (14.0-18.0); Immature Granulocyte Percent A 0.3 % (0-0.5); Lymphocytes Absolute Auto 1.46 K/mm3 (0.9-3.2); Mean Corpuscular HGB Conc 32.1 g/dl (32-36); Mean Corpuscular Hemoglobin 30.7 pg (26-34); Mean Corpuscular Volume 95.6 fl (80-100); Nucleated Red Blood Cells Absolute Auto 0.000 K/mm3 (0.0-0.012); Nucleated Red Blood Cells Perc 0.0 % (0.0-0.2); Platelet Count Result 212 k/mm3 (150-375); Red Blood Count 4.10 M/mm3 (4.6-6.20); White Blood Count 7.2 K/mm3 (4.5-10.0)
[2025-03-27 08:53] LABS: Add Urine Microscopic? YES; Appearance Urine Clear (Clear); Glucose Urine UA Negative (Negative); Leukocyte Esterase Ur Trace LEU/UL (Negative); Nitrate Urine Negative (Negative); Non Pathogenic Casts 0-2; Specific Grav Ur 1.016 (1.001-1.035)
[2025-03-27 09:04] LABS: Iron 137 ug/dL (49-181)
[2025-03-27 09:05] LABS: Alanine Aminotransferase 25 U/L (6-50); Albumin Level 4.2 g/dL (3.5-5.1); Alkaline Phosphatase 52 U/L (38-126); Anion Gap 7 mmol/L (4-12); Aspartate Amino Transferase 41 U/L (17-59); Bilirubin,Total 0.6 mg/dL (0.2-1.3); Blood Urea Nitrogen 18 mg/dL (9-20); Calcium 9.0 mg/dL (8.4-10.2); Carbon Dioxide 30 mmol/L (22-30); Chloride 102 mmol/L (98-107); Cholesterol 175 mg/dL (0-200); Estimated Glomerular Filt Rate 59; Glucose 95 mg/dL (65-110); HDL Direct 44 mg/dL; Potassium 3.7 mmol/L (3.4-5.0); Sodium 139 mmol/L (137-145); Total Protein 7.2 g/dL (6.3-8.2); Triglycerides 136 mg/dL (<150); Uric Acid 5.9 mg/dL (3.5-8.5)
[2025-03-27 09:13] LABS: Percent Iron Saturation 39 % (20-50)
[2025-03-27 09:41] LABS: Thyroid Stimulating Hormone 2.190 uIU/mL (0.465-4.680)
[2025-03-27 09:45] LABS: Ferritin 50.10 ng/mL (11.1-264)
[2025-03-27 10:01] LABS: Vitamin B12 789.0 pg/mL (239-931)
[2025-03-27 11:47] LABS: Prostate Specific Antigen 1.0 ng/mL (< OR = 4.0)
== END 2025-03-27 08:11 | disposition home or self-care (01) ==
PROVIDERS: PCP Family Medicine; Referring Provider Podiatrist Foot & Ankle Surgery; Visit Provider Family Medicine
DX: Z12.5 Encounter for screening for malignant neoplasm of prostate (principal); M1A.00X0 Idiopathic chronic gout, unspecified site, without tophus (tophi); D64.9 Anemia, unspecified; E53.8 Deficiency of other specified B group vitamins; I10 Essential (primary) hypertension; E78.2 Mixed hyperlipidemia; E78.5 Hyperlipidemia, unspecified
CPT/HCPCS: 36415; 80053; 80061; 81001; 82607; 82728; 83540; 83550; 84153; 84443; 84550; 85025; G0103